=== PATIENT | male | born 1955 | race American Indian/Alaskan Native ===

== ENCOUNTER 2016-12-01 09:43 | Inpatient (IN) | payer BC ==
[2016-12-01 10:36] LABS: Hematocrit 44.3 % (35.5-45.6); Hemoglobin 14.4 gm/dl (11.8-15.2); Mean Corpuscular HGB Conc 32 % (32-34); Mean Corpuscular Hemoglobin 29 pg (28-32); Mean Corpuscular Volume 88 fl (84-94); Platelet Count 143 K/mm3 (140-440); Red Blood Count 5.04 M/mm3 (3.65-5.03)
[2016-12-01 10:39] LABS: White Blood Count 20.4 K/mm3 (4.5-11.0)
[2016-12-01 10:43] LABS: Anion Gap 19 mmol/L; BUN/Creatinine Ratio 13.52; Blood Urea Nitrogen 23 mg/dL (9-20); Calcium 8.8 mg/dL (8.4-10.2); Carbon Dioxide 25 mmol/L (22-30); Chloride 94.3 mmol/L (98-107); Glucose 227 mg/dL (75-100); Potassium 3.7 mmol/L (3.6-5.0); Sodium 135 mmol/L (137-145)
--- NOTE | 2016-12-01 10:59 | XRay Report ---
CHEST 2 VIEWS INDICATION: Shortness of breath. COMPARISON: Report of 08/22/2014 CXR; images not retrievable at this time. FINDINGS: PA and lateral chest radiographs suggest new 6 cm right upper lobe/suprahilar pneumonia. Normal cardiomediastinal silhouette. Mild aortic knob calcifications. Left lateral costophrenic angle blunting/pleural thickening appears stable by description as also bilateral upper lobe/apical scarring, left more than right. Approximately 5 mm presumed left upper lobe calcified granuloma on the frontal view. No large pleural effusions or CHF. Thoracic spondylosis. CONCLUSION: 1. Approximately 6 cm right upper lobe pneumonia appears new by description since July 2014, as described. Please also correlate clinically and followup to complete resolution following adequate conservative treatment. 2. Few other stable findings by description, as described. Thank you for the opportunity to participate in this patient's care.
[2016-12-01 12:00] LABS: Basophils % (Manual) 0 % (0.0-1.8); Blastocytes % (Manual) 0 %; Diff Status Complete; Eosinophils % (Manual) 0 % (0.0-4.3); RBC Morphology Normal
[2016-12-01] MEDS ORDERED: NACL 0.9% 1000 ML 2,000 ML IV ONE (12:50)
[2016-12-01] MEDS ORDERED: LEVAQUIN 750MG/150ML 750 MG/150 ML BAG IV ONE (12:50)
[2016-12-01] MEDS ORDERED: DUONEB 0.5 MG-3 MG/3 ML SOLN IH ONE (12:51)
[2016-12-01] MEDS ORDERED: BABY ASPIRIN PO ONE (12:53)
--- NOTE | 2016-12-01 12:53 | Emergency Department Report ---
HPI - General Chief Complaint: Dyspnea/Respdistress Time Seen by Provider: 12/01/16 12:27 - HPI HPI: The patient is a 61-year-old male who presents for evaluation of cough and dyspnea. The patient reports 3 days of constant and severe dyspnea, exacerbated with exertion, improved with rest, associated with a harsh productive cough of yellow and green sputum. He also reports associated diffuse generalized myalgias, chills, and ill-feeling. The patient denies trauma to the chest, chest pain, syncope, hemoptysis, unilateral leg swelling, recent immobilization, history of DVT or PE, recent cancer, history of familial coagulation disorder. ED Past Medical Hx - Past Medical History Previous Medical History?: Yes Hx Hypertension: Yes Hx GERD: Yes Hx Asthma: Yes Additional medical history: "scar on lungs" - Surgical History Past Surgical History?: No - Social History Smoking Status: Never Smoker Substance Use Type: None - Medications Home Medications: Home Medications Medication Instructions Recorded Confirmed Last Taken Type No Known Home Medications [No 12/01/16 12/01/16 Unknown History Reported Home Medications] ED Review of Systems ROS: Stated complaint: GRAY Other details as noted in HPI Constitutional: denies: fever ENT: denies: throat or neck pain Respiratory: reports cough, shortness of breath Cardiovascular: denies: chest pain Endocrine: denies unexplained weight loss or gain Gastrointestinal: denies: abdominal pain, nausea Genitourinary: denies: dysuria Musculoskeletal: denies: leg swelling Skin: denies: rash Neurological: denies: headache Hematological/Lymphatic: denies: easy bleeding or easy bruising Psych: denies sadness or hopelessness Physical Exam - Physical Exam Vital Signs: Vital Signs 12/01/16 10:01 Temperature 100.1 F H Pulse Rate 137 H Respiratory 32 H Rate Blood Pressure 142/90 O2 Sat by Pulse 92 Oximetry Physical Exam: General: well-nourished, well-developed, no acute distress Head: Normocephalic, atraumatic Eyes: normal sclera ENT: Mucous membranes are pale and dry Neck: No neck stiffness, no cervical adenopathy Respiratory: Breath sounds equal bilaterally, diminished breath sounds in right upper and middle lobe rhonchi present, mild costal retractions, no respiratory distress Cardio: S1 and S2 present, no murmurs, rubs, gallops, capillary refill is delayed Abdomen: Normoactive bowel sounds, soft abdomen, no rigidity, no guarding or rebound tenderness Chest WALL/Back: No tenderness to palpation of the chest wall, no CVA tenderness with percussion Musc: No pitting edema Skin: No rash Neuro: no facial drooping, normal speech Psych: Normal affect ED Course Vital Signs 12/01/16 10:01 Temperature 100.1 F H Pulse Rate 137 H Respiratory 32 H Rate Blood Pressure 142/90 O2 Sat by Pulse 92 Oximetry ED Medical Decision Making - Lab Data Result diagrams: 12/01/16 10:10 12/01/16 10:10 - Medical Decision Making The patient was seen and examined by myself. The patient is placed on a hall monitor and continuous pulse ox. On initial evaluation, the patient was found to be in no distress. The patient is given 2 L normal saline fluid bolus for treatment of dehydration. Evaluation orders were placed. Lab results reveal leukocytosis, WBC 20, elevated creatinine 1.7, elevated glucose of 227. X-ray of the chest reveals a right upper lobe pneumonia, 6 cm in size. IV Levaquin is ordered for treatment of pneumonia. Patient is given IV insulin for treatment of hyperglycemia. The on-call hospitalist service was contacted. They agreed to admit the patient for further treatment and close monitoring. The ED admit order was placed. The patient was admitted in guarded condition. Critical care attestation.: If time is entered above; I have spent that time in minutes in the direct care of this critically ill patient, excluding procedure time. ED Disposition Clinical Impression: Acute hyperglycemia, Dehydration Pneumonia Qualifiers: Pneumonia type: due to unspecified organism Laterality: right Lung location: upper lobe of lung Qualified Code(s): J18.1 - Lobar pneumonia, unspecified organism Sepsis Qualifiers: Sepsis type: sepsis due to unspecified organism Qualified Code(s): A41.9 - Sepsis, unspecified organism Disposition: OP ADMIT IP TO THIS HOSP Is pt being admited?: Yes Does the pt Need Aspirin: Yes Condition: Stable Time of Disposition: 12:45
[2016-12-01] MEDS ORDERED: ZOSYN IV SCH (13:00)
[2016-12-01] MEDS ORDERED: NS IV SCH (13:00)
--- NOTE | 2016-12-01 13:04 | Admit Criteria Form ---
Admission Criteria Documentation: SEVERE SEPSIS Clinical Indications for Admission to Inpatient Care (Place 'X' for any and all applicable criteria): Hospital admission is needed for appropriate care of the patient because of ANY ONE of the following: [X]I. Hemodynamic instability indicated by ANY ONE of the following(1)(2)(3)( 4)(5): []a. Vital sign abnormality not readily corrected by appropriate treatment within 12 to 24 hours indicated by ANY ONE of the following: []i) Tachycardia that persists despite appropriate treatment []ii) Hypotension that persists despite appropriate treatment []iii) Orthostatic vital sign changes that persist despite appropriate treatment [X]b. Vital sign abnormality that is severe indicated by ANY ONE of the following: [X]i. Inadequate perfusion indicated by ANY ONE of the following: [X]1) Lactic acidosis (greater than 2 mmol/L) []2) New abnormal capillary refill (greater than 3 seconds) []3) Reduced urine output []4) New altered mental status []5) Myocardial Ischemia []ii. Mean arterial pressure [A] less than 60 mm Hg []iii. Mean arterial pressure[A] less than 70 mm Hg after 30 minutes of appropriate treatment (eg, fluid resuscitation) []iv. Sustained heart rate greater than 120 beats per minute in adult []v. IV inotropic or vasopressor medication required to maintain adequate blood pressure or perfusion []II. Systemic or infectious condition causing severe symptoms or findings not responsive to emergency or observation care treatment (as appropriate) indicated by ANY ONE of the following: []a. Cardiac arrhythmias of immediate concern(1)(2)(3) []b. Severe endocrine disorder (eg, thyrotoxicosis, adrenal insufficiency)(4)(5) []c. Seizures (eg, new or recurrent)(6) []d. New-onset end organ failure or dysfunction as indicated by ANY ONE of the following: []i. Acute unexplained hypoxemia (eg, not from lung infection or chronic disease)(7)(8)(9) []ii. Acute renal failure as indicated by new onset of ANY ONE of the following(10)(11)(12)(13)(14): []1) 3-fold rise in serum creatinine from baseline []2) Serum creatinine greater than 4 mg/dL (354 micromoles/L) with acute rise greater than 0.5 mg/dL (44.2 micromoles/L) []3) Reduction of more than 75% in estimated glomerular filtration rate from baseline. []4) Estimated glomerular filtration rate less than 35 mL/min/1.73m2 ( 0.59 mL/sec/1.73m2) in child younger than 18 years. []5) Cessation of urine output indicated by ALL of the following: []A. Adequate volume status []B. Inadequate urine output as indicated by ANY ONE of the following: []a. Urine output less than 0.3 mL/kg/hr for 24 hours []b. Anuria (urine output less than 0.1 mL/kg/hr) for 12 hours []iii. Acute mental status changes(15) []iv. Acute hepatic failure (eg, plasma bilirubin greater than 4 mg/ dL (68 micromoles/L), new INR greater than 2.0)(16)(17) []e. Unmanageable nausea and vomiting(18) []f. New-onset or uncontrolled central diabetes insipidus(19)(20) []g. Clinically significant dehydration(18)(21) []h. Hypoglycemia(22) []i. Acidosis (pH less than 7.35) or alkalosis (pH greater than 7.45)( 22)(23) []j. Toxic drug level that indicates need for specific monitoring or treatment(24)(25) []k. Severe electrolyte abnormalities indicated by ALL of the following( 1)(2)(3): []i. Electrolytes and associated findings are not as expected for patient baseline or acceptable treatment effects. []ii. Severe abnormalities indicated by ANY ONE of the following: []1) Sodium less than 130 mEq/L (mmol/L) (new) []2) Sodium less than 135 mEq/L (mmol/L) with ANY ONE of the following: []A. Uncorrectable (to near normal or chronic baseline) after trial of outpatient and emergency treatment []B. Altered mental status []C. Seizures []D. Severe medical etiology requiring inpatient management (eg , heart failure, hypovolemia) []3) Sodium greater than 155 mEq/L (mmol/L) []4) Sodium greater than 150 mEq/L (mmol/L) with ANY ONE of the following: []A. Uncorrectable (to near normal or chronic baseline) with outpatient and emergency treatment []B. Altered mental status []C. Seizures []D. Severe medical etiology (eg, hypovolemia, diabetes insipidus) []5) Potassium less than 2.5 mEq/L (mmol/L) despite outpatient and emergency treatment []6) Potassium less than 3 mEq/L (mmol/L) with ANY ONE of the following : []A. Weakness []B. Cardiac abnormality (eg, arrhythmia, conduction disturbance ) []C. Cardiac ischemia []D. Ileus []E. Ongoing medical cause requiring inpatient management (eg, acute renal wasting or SIADH) []F. Other severe symptoms []7) Potassium greater than 6.5 mEq/L (mmol/L) []8) Potassium greater than 5 mEq/L (mmol/L) with ANY ONE of the following: []A. Uncorrectable (to near normal or chronic baseline) with outpatient and emergency treatment []B. Severe ECG findings[A] []C. Acute worsening of renal failure (creatinine greater than 2.5 mg/dL (221 micromoles/L) or significant elevation for age and size) []D. Severe weakness []E. Severe medical etiology (eg, hemolysis, infection, drug overdose) []9) Calcium less than 7 mg/dL (1.75 mmol/L) despite outpatient and emergency treatment(5) []10) Calcium less than 8 mg/dL (2 mmol/L) with significant symptoms or findings (eg, altered mental status, muscle spasms, seizures, breathing difficulty, cardiac abnormality (eg, arrhythmia or conduction disturbance))(5) []11) Calcium greater than 14 mg/dL (3.5 mmol/L)(5) []12) Calcium greater than 12 mg/dL (3 mmol/L) with ANY ONE of the following(5): []A. Uncorrectable (to near normal or chronic baseline) with outpatient and emergency treatment []B. Significant dehydration or hypovolemia as indicated by ALL of the following(3)(6)(7): []a. Not resolved with initial treatments []b. Clinically significant dehydration as indicated by ANY ONE of the following: [](1) Vomiting refractory to outpatient treatment (ie, precluding oral rehydration) [](2) Inability to drink [](3) Hypernatremia or other electrolyte abnormality unable to be corrected with outpatient and emergency treatment [](4) Failure to remain hydrated with outpatient therapy [](5) Reduced urine output [](6) Hypotension [](7) Serious cause for dehydration requiring acute hospitalization ( eg, bowel obstruction, increased intracranial pressure, infectious cause) [](8) Child with ANY ONE of the following(8): [](i) Severe abdominal tenderness [](ii) Adequate care not available at home [](iii) Severe dehydration (greater than 9% loss of body weight) []C. Significant symptoms or findings (eg, altered mental status , cardiac abnormality (eg, arrhythmia, conduction disturbance), malignant etiology requiring inpatient treatment) []13) Phosphorus less than 1 mg/dL (0.32 mmol/L) []14) Phosphorus less than 1.5 mg/dL (0.48 mmol/L) with ANY ONE of the following: []A. Patient unresponsive to outpatient and emergency treatment []B. Significant symptoms or findings (eg, weakness, altered mental status, breathing difficulty, seizures, rhabdomyolysis) []15) Phosphorus greater than 10 mg/dL (3.2 mmol/L) []16) Phosphorus greater than 4.5 mg/dL (1.45 mmol/L) (new) with ANY ONE of the following: []A. Severe medical etiology (eg, crush injury, acute renal failure) []B. Associated hypocalcemia with significant findings (eg, neurologic symptoms, altered mental status, muscle spasms, seizures, breathing difficulty, cardiac abnormality (eg, arrhythmia, conduction disturbance)) []16) Magnesium less than 1 mg/dL (0.41 mmol/L) []17) Magnesium less than 1.5 mg/dL (0.62 mmol/L) with ANY ONE of the following: []A. Patient unresponsive to outpatient and emergency treatment []B. Associated hypocalcemia with significant findings (eg, altered mental status, muscle spasms, seizures, breathing difficulty, cardiac abnormality (eg, arrhythmia, conduction disturbance)) []C. Associated hypokalemia (potassium less than 3 mEq/L (mmol/L )) with risk of arrhythmia []18) Magnesium greater than 4 mEq/L (2 mmol/L) []19) Magnesium greater than 2.5 mEq/L (1.25 mmol/L) with significant symptoms or findings (eg, weakness, altered mental status, cardiac abnormality (eg, arrhythmia, conduction disturbance), breathing difficulty, severe medical etiology (eg, renal failure, hypovolemia)) []20) Uric acid greater than 20 mg/dL (1190 micromoles/L)(9) []21) Uric acid greater than 8 mg/dL (476 micromoles/L) with significant symptoms or findings of tumor lysis syndrome (eg, creatinine greater than 1.5 times upper limit of normal, cardiac abnormality (eg , arrhythmia, conduction disturbance), seizure)(9) []III. High fever or other high-risk infection situation as indicated by ANY ONE of the following(26)(27)(28): []a. Outpatient and observation care antimicrobial treatment unavailable, not effective, or not appropriate []b. Documented bacteremia []c. Temperature greater than 104.9 degrees F (40.5 degrees C) (oral) []d. Temperature greater than 103.1 degrees F (39.5 degrees C) (oral) or less than 96.8 degrees F (36 degrees C) (rectal) that does not respond to emergency treatment and observation care []IV. High-risk febrile neutropenia[A] as indicated by ANY ONE of the following(29)(30)(31)(32): []a. Profound neutropenia[B] anticipated to extend for more than 7 days []b. Hemodynamic instability []c. Hypoxemia []d. Tachypnea []e. Altered mental status []f. New-onset abdominal pain []g. New-onset vomiting or diarrhea []h. Oral or gastrointestinal mucositis that interferes with swallowing or causes severe diarrhea []i. Focal infection (eg, cellulitis, pneumonia, central line or catheter infection, perirectal abscess) []j. Renal insufficiency (eg, GFR of less than 30 mL/min/1.73m2 (0.5 mL/sec /1.73m2)). []k. Severe liver dysfunction (transaminase levels greater than 5 times normal) []l. Platelet count less than 50,000/mm3 (50 x109/L)(33) []m. Leukemia or lymphoma induction therapy []n. Leukemia not in complete remission or with evidence of disease progression []o. Bone marrow transplant patient []p. Alemtuzumab being used for therapy []q. [employer] Association for Supportive Care in Cancer (MASCC) Risk Index score of less than 21[C](33)(35). []V. Isolation required (eg, tuberculosis that requires isolation, Ebola infection)[D](36)(37)(38)(39)(40) []. Gangrene that requires treatment beyond emergency or observation level care(41)(42) []VII. Antitoxin administration and ongoing observation required (eg, tetanus, botulism)(43)(44) []. Suspected infection with rapid progression or severe symptoms as indicated by ANY ONE of the following(45): []a. Streptococcal or staphylococcal toxic shock(46) []b. Diphtheria(47) []c. Hantavirus(48) []d. Severe acute respiratory syndrome(8)(49) []e. Anthrax(50) []f. Ebola[D](36)(37)(38) []g. Necrotizing soft tissue infection(41)(42) []h. Plague(50) []i. Other suspected infection that requires care beyond emergency or observation level care []VII. Severe adverse drug or systemic toxin reaction as indicated by ANY ONE of the following(24): []a. Serotonin syndrome(51)(52) []b. Neuroleptic malignant syndrome(51)(52) []c. Cholinergic syndrome with severe symptoms (eg, bronchorrhea, weakness , mental status changes, seizures)(53) []d. Anticholinergic syndrome []e. Sympathetic syndrome with severe symptoms (eg, seizures, mental status changes, cardiac dysrhythmias) []f. Other severe adverse drug or systemic toxin reaction that remains after emergency or observation level care (as appropriate) []VIII. Allergic reaction with severe symptoms (not responsive to emergency or observation care treatment as appropriate), including ANY ONE of the following(54): []a. Airway edema (pharyngeal, epiglottic, or laryngeal edema) []b. Stridor []c. Respiratory failure []d. Bronchospasm []e. Hypotension []IX. Environmental emergency (not responsive to emergency or observation care treatment as appropriate) as indicated by ANY ONE of the following(55)(56): []a. Hyperthermia []b. Heat stroke []c. Heat exhaustion []d. Hypothermia (temperature less than 95 degrees F (35 degrees C) rectal) (57) []e. Electrocution(58) []X. Complications of transplanted organ (ie, not covered elsewhere)[E] indicated by ANY ONE of the following(59): []a. Acute graft rejection (or graft vs. host disease)[F] requiring inpatient management (eg, intravenous immunosuppression)(60)(61)(62)( 63) []b. Acute failure of transplanted organ necessitating inpatient care (eg, cannot be managed in other setting) []c. Infection requiring inpatient management (eg, Hemodynamic instability, need for intravenous antimicrobial treatment)(64)(65) []d. Other complication of transplanted organ requiring inpatient management []XI. Systemic or Infectious Condition condition, symptom, or finding for which emergency and observation care have failed or are not considered appropriate. See General Criteria: Observation Care, General Admission Criteria or Pediatric General Admission Criteria guideline as appropriate. (Contents from SEVERE SEPSIS and SYSTEMIC OR INFECTIOUS CONDITION clinical indications for admission to inpatient care have been integrated in this form) The original [facility] content created by [facility] has been revised. The portions of the content which have been revised are identified through the use of italic text or in bold and [facility] has neither reviewed nor approved the modified material. All other unmodified content is copyright [facility]. Please see references footnoted in the original [facility] edition 2016 Admission Criteria Met: Yes
[2016-12-01 13:16] LABS: INR 1.39 (0.87-1.13)
--- NOTE | 2016-12-01 13:23 | History and Physical Report ---
History of Present Illness Chief complaint: Im not breathing right History of present illness: 61 YO Male with HTN, Asthma, GERD presents to ED for evaluation. Pt states that he has experienced difficulty breathing, and productive cough with greenish- yellow sputum over the past 3 days with worsening symptoms over the past 8 hours. Pt acknowledges subjective fever, but denies orthopnea, NVD, Syncope, CP , Palpitations, recent ill contacts, skin rashes, trauma, BRBPR, Hemoptysis, unintentional weight loss, or night sweats. Past History Past Medical History: GERD, hypertension Past Surgical History: No surgical history, Other (reviewed) Social history: single. denies: smoking, alcohol abuse, prescription drug abuse Family history: diabetes, hypertension Medications and Allergies Allergies Allergy/AdvReac Type Severity Reaction Status Date / Time No Known Allergies Allergy Verified 03/07/13 08:14 Home Medications Medication Instructions Recorded Confirmed Last Taken Type No Known Home Medications [No 12/01/16 12/01/16 Unknown History Reported Home Medications] Active Meds: Active Medications Levofloxacin/Dextrose (Levaquin 750mg/150ml) 750 mg in 150 mls @ 100 mls/hr IV ONCE ONE Stop: 12/01/16 14:19 Sodium Chloride (Nacl 0.9% 1000 Ml) 2,000 mls @ 999 mls/hr IV BOLUS ONE Stop: 12/01/16 14:50 Piperacillin Sod/Tazobactam Sod (Zosyn/Ns 3.375gm/50ml) 3.375 gm in 50 mls @ 100 mls/hr IV Q6HR RADHA Review of Systems All systems: negative Respiratory: cough, shortness of breath Exam - Constitutional Vitals: Temp Pulse Resp BP Pulse Ox 100.1 F H 137 H 32 H 142/90 92 12/01/16 10:01 12/01/16 10:01 12/01/16 10:01 12/01/16 10:01 12/01/16 10:01 General appearance: Present: mild distress - EENT Eyes: Present: PERRL ENT: hearing intact, clear oral mucosa - Neck Neck: Present: supple, normal ROM - Respiratory Respiratory: bilateral: diminished, rhonchi - Cardiovascular Rhythm: regular Heart Sounds: Present: S1 & S2 - Extremities Extremities: pulses symmetrical, No edema Peripheral Pulses: within normal limits - Abdominal General gastrointestinal: Present: soft, non-tender, non-distended, normal bowel sounds Male genitourinary: Present: normal - Integumentary Integumentary: Present: clear, warm, dry - Psychiatric Psychiatric: appropriate mood/affect, intact judgment & insight - Neurologic Neurologic: CNII-XII intact, moves all extremities Results - Labs CBC & Chem 7: 12/01/16 10:10 12/01/16 10:10 Labs: Abnormal lab results 12/01/16 12/01/16 12/01/16 Range/Units 10:10 10:10 12:50 WBC 20.4 H (4.5-11.0) K/mm3 RBC 5.04 H (3.65-5.03) M/mm3 Seg Neuts % (Manual) 75.0 H (40.0-70.0) % Lymphocytes % (Manual) 6.0 L (13.4-35.0) % Seg Neutrophils # Man 15.3 H (1.8-7.7) K/mm3 PT 17.0 H (12.2-14.9) Sec. INR 1.39 H (0.87-1.13) Sodium 135 L (137-145) mmol/L Chloride 94.3 L (98-107) mmol/L BUN 23 H (9-20) mg/dL Creatinine 1.7 H (0.8-1.5) mg/dL Glucose 227 H (75-100) mg/dL Assessment and Plan - Patient Problems (1) Sepsis Current Visit: Yes Status: Acute Qualifiers: Sepsis type: S Plan to address problem: Sepsis protocol: IV abx, serial lactate level, blood cultures, monitor uop q shift, (2) Pneumonia Current Visit: Yes Status: Acute Qualifiers: Pneumonia type: aspiration pneumonia Aspiration pneumonia type: A Laterality: right Lung location: upper lobe of lung Plan to address problem: Pneumonia Protocol: Iv abx, nebs, aspiration precautions, blood culture, supportive care, incentive spirometry (3) ARF (acute renal failure) Current Visit: Yes Status: Acute Qualifiers: Acute renal failure type: A Plan to address problem: IVF replacement, monitor uop q shift, repeat bmp in am. (4) Accelerated hypertension Current Visit: Yes Status: Acute Plan to address problem: monitor bp q shift, continue current care. (5) Asthma Current Visit: Yes Status: Acute Qualifiers: Asthma severity: mild intermittent Asthma complication type: A Plan to address problem: Stable, continue current care, treat pneumonia (6) GERD (gastroesophageal reflux disease) Current Visit: Yes Status: Acute Qualifiers: Esophagitis presence: E Plan to address problem: PPI therapy, (7) DVT prophylaxis Current Visit: Yes Status: Acute
[2016-12-01] MEDS ORDERED: DUONEB 0.5 MG-3 MG/3 ML SOLN IH PRN (13:24)
[2016-12-01] MEDS ORDERED: VANCOMYCIN VIAL 1,250 MG in NACL 0.9% 500 ML 500 ML IV ONE (13:24)
[2016-12-01] MEDS ORDERED: PROVENTIL IH PRN (13:30)
[2016-12-01] MEDS ORDERED: VANCOMYCIN PHARMACY TO DOSE IV SCH (14:00)
[2016-12-01] MEDS ORDERED: NACL 0.9% 1000 ML IV ONE (14:00)
[2016-12-01] MEDS ORDERED: VANCOMYCIN/NS 1 GM/250 ML 1 GM/250 ML BAG IV SCH (14:00)
[2016-12-01] MEDS ORDERED: NACL 0.9% 1000 ML 1,000 ML IV ONE (14:00)
[2016-12-01] MEDS ORDERED: BABY ASPIRIN ONE (16:24)
[2016-12-01] MEDS: ZOSYN/NS 4.5GM/100ML 4.5 GM/100 ML VIAL IV SCH ×2 (17:56→21:45)
[2016-12-01] MEDS ORDERED: ZOSYN/NS 3.375GM/50ML 3.375 GM/50 ML BAG IV SCH (18:00)
[2016-12-01] MEDS ORDERED: MORPHINE ONE (19:01)
[2016-12-01] MEDS ORDERED: MORPHINE IV ONE (19:03)
[2016-12-02] MEDS: ZOSYN/NS 4.5GM/100ML 4.5 GM/100 ML VIAL IV SCH ×3 (05:05→17:57)
[2016-12-02 09:23] LABS: Hematocrit 38.8 % (35.5-45.6); Hemoglobin 12.5 gm/dl (11.8-15.2); Mean Corpuscular HGB Conc 32 % (32-34); Mean Corpuscular Hemoglobin 28 pg (28-32); Mean Corpuscular Volume 88 fl (84-94); Platelet Count 118 K/mm3 (140-440); Red Blood Count 4.41 M/mm3 (3.65-5.03)
[2016-12-02 09:25] LABS: White Blood Count 22.4 K/mm3 (4.5-11.0)
[2016-12-02] MEDS ORDERED: ZOSYN/NS 4.5GM/100ML 4.5 GM/100 ML VIAL IV SCH (09:30)
--- NOTE | 2016-12-02 09:39 | Progress Note ---
Assessment and Plan Assessment and plan: Patient is 61-year-old man history of hypertension, asthma and GERD who presents with shortness of breath and productive cough. Chest x-ray shows right upper lobe pneumonia, white blood cell count was 20.5. Blood glucose was 227, creatinine 1.7. Patient is febrile so I ordered Tylenol. -Aspiration pneumonia right upper lobe: Treat with antibiotics, follow blood culture, added renal dose zosyn -Sepsis due to pneumonia present on admission: Treat with antibiotics, IV fluids -Acute renal failure, vasomotor nephropathy: Treat with IV fluids -Hyperglycemia, new onset diabetes mellitus suspected: Check A1c, start diabetic diet and ordered sliding scale insulin -DVT prophylaxis: SCDs and subcutaneous heparin Full code History Interval history: Patient seen and examined. Follow up on shortness breath and right-sided chest pain which still present. He is on 2 L oxygen. Which is new. Hyperglycemia is new. Patient denies history of diabetes mellitus. Imaging, old records, testing, labs, nursing notes reviewed. Hospitalist Physical - Physical exam Narrative exam: GEN: WDWN, NAD, AWAKE, ALERT, ORIENTATED x 3 HEENT: NCAT, PERRL, EOMI, OP CLEAR NECK: SUPPLE, NO THYROMEGALY, NO JVD, NO LAD CVS: RRR, NORMAL S1S2 LUNGS/CHEST: Coarse breath sounds were right upper lung, NORMAL CHEST EXPANSION B, GOOD AIR ENTRY B ABD: SOFT, diffuse tenderness, distended, GBS, NO REBOUND OR GUARDING EXT/SKIN: NO SIGNIFICANT EDEMA OR RASH MSK: FROM X 4 EXTREMITIES NEURO: CN 2-12 GROSSLY INTACT, NO FOCAL DEFICITS PSY: CALM - Constitutional Vitals: Temp Pulse Resp BP Pulse Ox 100.5 F H 118 H 24 141/88 96 12/02/16 07:55 12/02/16 07:55 12/02/16 07:55 12/02/16 07:55 12/02/16 07:55 General appearance: Absent: mild distress Results - Labs CBC & Chem 7: 12/02/16 08:13 12/01/16 10:10 Labs: Laboratory Last Values WBC 22.4 K/mm3 (4.5-11.0) H 12/02/16 08:13 RBC 4.41 M/mm3 (3.65-5.03) 12/02/16 08:13 Hgb 12.5 gm/dl (11.8-15.2) 12/02/16 08:13 Hct 38.8 % (35.5-45.6) 12/02/16 08:13 MCV 88 fl (84-94) 12/02/16 08:13 MCH 28 pg (28-32) 12/02/16 08:13 MCHC 32 % (32-34) 12/02/16 08:13 RDW 15.0 % (13.2-15.2) 12/02/16 08:13 Plt Count 118 K/mm3 (140-440) L 12/02/16 08:13 Add Manual Diff Complete 12/01/16 10:10 Total Counted 100 12/01/16 10:10 Seg Neutrophils % Photo Stylist 12/01/16 10:10 Seg Neuts % (Manual) 75.0 % (40.0-70.0) H 12/01/16 10:10 Band Neutrophils % 17.0 % 12/01/16 10:10 Lymphocytes % (Manual) 6.0 % (13.4-35.0) L 12/01/16 10:10 Reactive Lymphs % (Man) 0 % 12/01/16 10:10 Monocytes % (Manual) 2.0 % (0.0-7.3) 12/01/16 10:10 Eosinophils % (Manual) 0 % (0.0-4.3) 12/01/16 10:10 Basophils % (Manual) 0 % (0.0-1.8) 12/01/16 10:10 Metamyelocytes % 0 % 12/01/16 10:10 Myelocytes % 0 % 12/01/16 10:10 Promyelocytes % 0 % 12/01/16 10:10 Blast Cells % 0 % 12/01/16 10:10 Nucleated RBC % Not Reportable 12/01/16 10:10 Seg Neutrophils # Man 15.3 K/mm3 (1.8-7.7) H 12/01/16 10:10 Band Neutrophils # 3.5 K/mm3 12/01/16 10:10 Lymphocytes # (Manual) 1.2 K/mm3 (1.2-5.4) 12/01/16 10:10 Abs React Lymphs (Man) 0.0 K/mm3 12/01/16 10:10 Monocytes # (Manual) 0.4 K/mm3 (0.0-0.8) 12/01/16 10:10 Eosinophils # (Manual) 0.0 K/mm3 (0.0-0.4) 12/01/16 10:10 Basophils # (Manual) 0.0 K/mm3 (0.0-0.1) 12/01/16 10:10 Metamyelocytes # 0.0 K/mm3 12/01/16 10:10 Myelocytes # 0.0 K/mm3 12/01/16 10:10 Promyelocytes # 0.0 K/mm3 12/01/16 10:10 Blast Cells # 0.0 K/mm3 12/01/16 10:10 WBC Morphology Not Reportable 12/01/16 10:10 Hypersegmented Neuts Not Reportable 12/01/16 10:10 Hyposegmented Neuts Not Reportable 12/01/16 10:10 Hypogranular Neuts Not Reportable 12/01/16 10:10 Smudge Cells Not Reportable 12/01/16 10:10 Toxic Granulation Not Reportable 12/01/16 10:10 Toxic Vacuolation Not Reportable 12/01/16 10:10 Dohle Bodies Not Reportable 12/01/16 10:10 Pelger-Huet Anomaly Not Reportable 12/01/16 10:10 Darius Rods Not Reportable 12/01/16 10:10 Platelet Estimate Not Reportable 12/01/16 10:10 Clumped Platelets Not Reportable 12/01/16 10:10 Plt Clumps, EDTA Not Reportable 12/01/16 10:10 Large Platelets Not Reportable 12/01/16 10:10 Giant Platelets Not Reportable 12/01/16 10:10 Platelet Satelliting Not Reportable 12/01/16 10:10 Plt Morphology Comment Not Reportable 12/01/16 10:10 RBC Morphology Normal 12/01/16 10:10 Dimorphic RBCs Not Reportable 12/01/16 10:10 Polychromasia Not Reportable 12/01/16 10:10 Hypochromasia Not Reportable 12/01/16 10:10 Poikilocytosis Not Reportable 12/01/16 10:10 Anisocytosis Not Reportable 12/01/16 10:10 Microcytosis Not Reportable 12/01/16 10:10 Macrocytosis Not Reportable 12/01/16 10:10 Spherocytes Not Reportable 12/01/16 10:10 Pappenheimer Bodies Not Reportable 12/01/16 10:10 Sickle Cells Not Reportable 12/01/16 10:10 Target Cells Not Reportable 12/01/16 10:10 Tear Drop Cells Not Reportable 12/01/16 10:10 Ovalocytes Not Reportable 12/01/16 10:10 Helmet Cells Not Reportable 12/01/16 10:10 Avendano-[place] Bodies Not Reportable 12/01/16 10:10 [place] Rings Not Reportable 12/01/16 10:10 [place] Cells Not Reportable 12/01/16 10:10 Bite Cells Not Reportable 12/01/16 10:10 Crenated Cell Not Reportable 12/01/16 10:10 Elliptocytes Not Reportable 12/01/16 10:10 Acanthocytes (Spur) Not Reportable 12/01/16 10:10 Rouleaux Not Reportable 12/01/16 10:10 Hemoglobin C Crystals Not Reportable 12/01/16 10:10 Schistocytes Not Reportable 12/01/16 10:10 Malaria parasites Not Reportable 12/01/16 10:10 Domenic Bodies Not Reportable 12/01/16 10:10 Hem Pathologist Commnt No 12/01/16 10:10 PT 17.0 Sec. (12.2-14.9) H 12/01/16 12:50 INR 1.39 (0.87-1.13) H 12/01/16 12:50 VBG pH 7.395 (7.320-7.420) 12/01/16 12:50 Sodium 135 mmol/L (137-145) L 12/01/16 10:10 Potassium 3.7 mmol/L (3.6-5.0) 12/01/16 10:10 Chloride 94.3 mmol/L (98-107) L 12/01/16 10:10 Carbon Dioxide 25 mmol/L (22-30) 12/01/16 10:10 Anion Gap 19 mmol/L 12/01/16 10:10 BUN 23 mg/dL (9-20) H 12/01/16 10:10 Creatinine 1.7 mg/dL (0.8-1.5) H 12/01/16 10:10 Estimated GFR 50 ml/min 12/01/16 10:10 BUN/Creatinine Ratio 13.52 % 12/01/16 10:10 Glucose 227 mg/dL (75-100) H 12/01/16 10:10 POC Glucose 187 (70-105) H 12/01/16 18:59 Lactic Acid 1.50 mmol/L (0.7-2.0) 12/01/16 16:06 Calcium 8.8 mg/dL (8.4-10.2) 12/01/16 10:10 Troponin T < 0.010 ng/mL (0.00-0.029) 12/01/16 10:10
[2016-12-02] MEDS ORDERED: NACL 0.9% 1000 ML 1,000 ML IV SCH (10:00)
[2016-12-02 10:25] LABS: Basophils % (Manual) 0 % (0.0-1.8); Blastocytes % (Manual) 0 %; Diff Status Complete; Eosinophils % (Manual) 0 % (0.0-4.3); Platelet Estimate Appears Decreased; RBC Morphology Normal
[2016-12-02] MEDS ORDERED: FLUARIX QUAD 2016-2017(36 MOS+) IM ONE (12:00)
[2016-12-02] MEDS ORDERED: LASIX IV ONE ×2 (12:37)
[2016-12-02] MEDS: ATROVENT IH SCH ×3 (12:40→20:34)
[2016-12-02] MEDS: XOPENEX IH SCH ×2 (12:40→16:10)
[2016-12-02] MEDS ORDERED: ZOSYN/NS 2.25 GM/50ML 2.25 GM/50 ML BAG IV SCH (14:00)
[2016-12-03] MEDS: ATROVENT IH SCH ×6 (00:02→19:55)
[2016-12-03] MEDS: XOPENEX IH SCH ×3 (00:03→16:10)
[2016-12-03] MEDS: ZOSYN/NS 4.5GM/100ML 4.5 GM/100 ML VIAL IV SCH ×3 (02:08→18:30)
[2016-12-03 06:01] LABS: Hematocrit 36.9 % (35.5-45.6); Hemoglobin 12.2 gm/dl (11.8-15.2); Mean Corpuscular HGB Conc 33 % (32-34); Mean Corpuscular Hemoglobin 29 pg (28-32); Mean Corpuscular Volume 88 fl (84-94); Platelet Count 134 K/mm3 (140-440); Red Blood Count 4.19 M/mm3 (3.65-5.03); Red Cell Distribution Width 15.2 % (13.2-15.2)
[2016-12-03 06:02] LABS: White Blood Count 23.9 K/mm3 (4.5-11.0)
[2016-12-03 06:13] LABS: BUN/Creatinine Ratio 17.5; Calcium 8.9 mg/dL (8.4-10.2); Chloride 100.9 mmol/L (98-107); Potassium 3.4 mmol/L (3.6-5.0)
[2016-12-03] MEDS ORDERED: K-DUR PO NR ×2 (09:00→13:00)
[2016-12-03] MEDS ORDERED: LEVAQUIN 750MG/150ML 750 MG/150 ML BAG IV SCH (10:00)
--- NOTE | 2016-12-03 10:23 | Cat Scan Report ---
CT CHEST WITHOUT CONTRAST: 12/01/16 13:24:00 CLINICAL: Pneumonia. TECHNIQUE: Volumetric acquisition and 1.25 mm axial scan reconstructions without contrast. FINDINGS: Right upper lobe airspace disease with partial consolidation and air bronchograms. Consolidation extends from the hilum to the pleura. Scattered benign calcifications in the right upper lobe and several calcified granuloma of the left upper lobe and left lower lobe. The largest is in the superior segment of the left lower lobe and measures 6.5 mm. Tubular bronchiectasis of the left upper lobe and left lower lobe along with volume loss. Extensive left upper lobe and left lower lobe scars and a spiculated left apical opacity measuring 1.4 x 1.3 cm which is likely a scar. A spiculated left lower lobe opacity measures 1 cm and is likely a scar. Moderate emphysema of the left lung. No endobronchial mass is identified. No pleural effusion. The heart is normal size. Pulmonary arteries are large. The aorta is normal. Several small mediastinal lymph nodes. The largest is pretracheal at the level of the aortic arch and measures 1 cm. No hilar lymph nodes are identified. Normal thyroid and trachea. Nonspecific wall thickening of the distal esophagus. The upper abdomen is unremarkable. The bones and soft tissues are normal. IMPRESSION: 1. COPD with greater involvement of the left lung than the right. 2. Right upper lobe pneumonia with consolidation and volume loss. 3. Bilateral upper lobe and left lower lobe benign calcifications. Although these appear to be granulomas, there are no calcified hilar or mediastinal lymph nodes and no hepatic or splenic calcifications as is typical with old granulomatous disease. 4. Probable benign spiculated scars of the left upper lobe and left lower lobe. Recommend followup with CT in six months.
[2016-12-03] MEDS: TYLENOL PO PRN (11:29)
[2016-12-03] MEDS ORDERED: ALUM-MAG HYDROX-SIMETH 200-200-20MG/5ML PO PRN (13:36)
--- NOTE | 2016-12-03 13:40 | Progress Note ---
Assessment and Plan Assessment and plan: Patient is 61-year-old man history of hypertension, asthma and GERD who presents with shortness of breath and productive cough. Chest x-ray shows right upper lobe pneumonia, white blood cell count was 20.5. Blood glucose was 227, creatinine 1.7. Patient is febrile so I ordered Tylenol. -Aspiration pneumonia right upper lobe: Treat with antibiotics, follow blood culture, added renal dose zosyn -Sepsis due to pneumonia present on admission: Treat with antibiotics, stopped IV fluids and gave a dose of lasix iv x 1 which really helped . -Acute renal failure, vasomotor nephropathy: Treat with IV fluids, was getting fluid overloaded, therefore stopped ivf -Hyperglycemia, Checked A1c==>5.8 unlikely DM, so hyperglycemia due to pre-dm vs stress reaction, start diabetic diet and ordered sliding scale insulin -DVT prophylaxis: SCDs and subcutaneous heparin Full code 12/03: wbc increasing and febrile, ordered CT chest chest without contrast due to renal dysfunction==>consulted pulmonology History Interval history: Patient seen and examined. Follow up on shortness breath and right-sided chest pain which still present. He is on 2 L oxygen. Which is new. Hyperglycemia is new. Patient denies history of diabetes mellitus. Imaging, old records, testing, labs, nursing notes reviewed. Hospitalist Physical - Physical exam Narrative exam: GEN: WDWN, NAD, AWAKE, ALERT, ORIENTATED x 3 HEENT: NCAT, PERRL, EOMI, OP CLEAR NECK: SUPPLE, NO THYROMEGALY, NO JVD, NO LAD CVS: RRR, NORMAL S1S2 LUNGS/CHEST: Coarse breath sounds were right upper lung, NORMAL CHEST EXPANSION B, GOOD AIR ENTRY B ABD: SOFT, diffuse tenderness, distended, GBS, NO REBOUND OR GUARDING EXT/SKIN: NO SIGNIFICANT EDEMA OR RASH MSK: FROM X 4 EXTREMITIES NEURO: CN 2-12 GROSSLY INTACT, NO FOCAL DEFICITS PSY: CALM - Constitutional Vitals: Temp Pulse Resp BP Pulse Ox 100.1 F H 118 H 20 131/81 99 12/03/16 07:00 12/03/16 12:35 12/03/16 12:35 12/03/16 07:00 12/03/16 07:32 General appearance: Absent: mild distress Results - Labs CBC & Chem 7: 12/03/16 05:31 12/03/16 05:31 Labs: Laboratory Last Values WBC 23.9 K/mm3 (4.5-11.0) H 12/03/16 05:31 RBC 4.19 M/mm3 (3.65-5.03) 12/03/16 05:31 Hgb 12.2 gm/dl (11.8-15.2) 12/03/16 05:31 Hct 36.9 % (35.5-45.6) 12/03/16 05:31 MCV 88 fl (84-94) 12/03/16 05:31 MCH 29 pg (28-32) 12/03/16 05:31 MCHC 33 % (32-34) 12/03/16 05:31 RDW 15.2 % (13.2-15.2) 12/03/16 05:31 Plt Count 134 K/mm3 (140-440) L 12/03/16 05:31 Add Manual Diff Complete 12/02/16 08:13 Total Counted 100 12/02/16 08:13 Seg Neutrophils % Trawl Net Maker 12/01/16 10:10 Seg Neuts % (Manual) 55.0 % (40.0-70.0) 12/02/16 08:13 Band Neutrophils % 35.0 % 12/02/16 08:13 Lymphocytes % (Manual) 5.0 % (13.4-35.0) L 12/02/16 08:13 Reactive Lymphs % (Man) 0 % 12/02/16 08:13 Monocytes % (Manual) 5.0 % (0.0-7.3) 12/02/16 08:13 Eosinophils % (Manual) 0 % (0.0-4.3) 12/02/16 08:13 Basophils % (Manual) 0 % (0.0-1.8) 12/02/16 08:13 Metamyelocytes % 0 % 12/02/16 08:13 Myelocytes % 0 % 12/02/16 08:13 Promyelocytes % 0 % 12/02/16 08:13 Blast Cells % 0 % 12/02/16 08:13 Nucleated RBC % Not Reportable 12/02/16 08:13 Seg Neutrophils # Man 12.3 K/mm3 (1.8-7.7) H 12/02/16 08:13 Band Neutrophils # 7.8 K/mm3 12/02/16 08:13 Lymphocytes # (Manual) 1.1 K/mm3 (1.2-5.4) L 12/02/16 08:13 Abs React Lymphs (Man) 0.0 K/mm3 12/02/16 08:13 Monocytes # (Manual) 1.1 K/mm3 (0.0-0.8) H 12/02/16 08:13 Eosinophils # (Manual) 0.0 K/mm3 (0.0-0.4) 12/02/16 08:13 Basophils # (Manual) 0.0 K/mm3 (0.0-0.1) 12/02/16 08:13 Metamyelocytes # 0.0 K/mm3 12/02/16 08:13 Myelocytes # 0.0 K/mm3 12/02/16 08:13 Promyelocytes # 0.0 K/mm3 12/02/16 08:13 Blast Cells # 0.0 K/mm3 12/02/16 08:13 WBC Morphology Not Reportable 12/02/16 08:13 Hypersegmented Neuts Not Reportable 12/02/16 08:13 Hyposegmented Neuts Not Reportable 12/02/16 08:13 Hypogranular Neuts Not Reportable 12/02/16 08:13 Smudge Cells Not Reportable 12/02/16 08:13 Toxic Granulation Not Reportable 12/02/16 08:13 Toxic Vacuolation Not Reportable 12/02/16 08:13 Dohle Bodies Not Reportable 12/02/16 08:13 Pelger-Huet Anomaly Not Reportable 12/02/16 08:13 Darius Rods Not Reportable 12/02/16 08:13 Platelet Estimate Appears decreased 12/02/16 08:13 Clumped Platelets Not Reportable 12/02/16 08:13 Plt Clumps, EDTA Not Reportable 12/02/16 08:13 Large Platelets Not Reportable 12/02/16 08:13 Giant Platelets Not Reportable 12/02/16 08:13 Platelet Satelliting Not Reportable 12/02/16 08:13 Plt Morphology Comment Not Reportable 12/02/16 08:13 RBC Morphology Normal 12/02/16 08:13 Dimorphic RBCs Not Reportable 12/02/16 08:13 Polychromasia Not Reportable 12/02/16 08:13 Hypochromasia Not Reportable 12/02/16 08:13 Poikilocytosis Not Reportable 12/02/16 08:13 Anisocytosis Not Reportable 12/02/16 08:13 Microcytosis Not Reportable 12/02/16 08:13 Macrocytosis Not Reportable 12/02/16 08:13 Spherocytes Not Reportable 12/02/16 08:13 Pappenheimer Bodies Not Reportable 12/02/16 08:13 Sickle Cells Not Reportable 12/02/16 08:13 Target Cells Not Reportable 12/02/16 08:13 Tear Drop Cells Not Reportable 12/02/16 08:13 Ovalocytes Not Reportable 12/02/16 08:13 Helmet Cells Not Reportable 12/02/16 08:13 Avendano-[place] Bodies Not Reportable 12/02/16 08:13 [place] Rings Not Reportable 12/02/16 08:13 [place] Cells Not Reportable 12/02/16 08:13 Bite Cells Not Reportable 12/02/16 08:13 Crenated Cell Not Reportable 12/02/16 08:13 Elliptocytes Not Reportable 12/02/16 08:13 Acanthocytes (Spur) Not Reportable 12/02/16 08:13 Rouleaux Not Reportable 12/02/16 08:13 Hemoglobin C Crystals Not Reportable 12/02/16 08:13 Schistocytes Not Reportable 12/02/16 08:13 Malaria parasites Not Reportable 12/02/16 08:13 Domenic Bodies Not Reportable 12/02/16 08:13 Hem Pathologist Commnt No 12/02/16 08:13 PT 17.0 Sec. (12.2-14.9) H 12/01/16 12:50 INR 1.39 (0.87-1.13) H 12/01/16 12:50 VBG pH 7.395 (7.320-7.420) 12/01/16 12:50 Sodium 141 mmol/L (137-145) 12/03/16 05:31 Potassium 3.4 mmol/L (3.6-5.0) L 12/03/16 05:31 Chloride 100.9 mmol/L (98-107) 12/03/16 05:31 Carbon Dioxide 25 mmol/L (22-30) 12/03/16 05:31 Anion Gap 19 mmol/L 12/03/16 05:31 BUN 28 mg/dL (9-20) H 12/03/16 05:31 Creatinine 1.6 mg/dL (0.8-1.5) H 12/03/16 05:31 Estimated GFR 53 ml/min 12/03/16 05:31 BUN/Creatinine Ratio 17.50 % 12/03/16 05:31 Glucose 118 mg/dL (75-100) H 12/03/16 05:31 POC Glucose 187 (70-105) H 12/01/16 18:59 Hemoglobin A1c 5.8 % (4-6) 12/02/16 08:13 Lactic Acid 1.50 mmol/L (0.7-2.0) 12/01/16 16:06 Calcium 8.9 mg/dL (8.4-10.2) 12/03/16 05:31 Troponin T < 0.010 ng/mL (0.00-0.029) 12/01/16 10:10
[2016-12-03] MEDS: PROTONIX PO SCH (15:33)
--- NOTE | 2016-12-03 16:42 | Consultation ---
History of Present Illness Consult date: 12/03/16 Requesting physician: ENA RAMOS Reason for consult: pneumonia, abnormal CXR/CT History of present illness: 61 y/o [place], admitted with cough productive of sputum, chest pain and shortness of breath. Found to have right upper lobe infiltrate. Started on broad spec abx therapy to cover anaerobes and gram negatives. Unfortunately, fever curve not breaking and still coughing with stable shortness of breath. WC increasing so pulmonary consulted. CT scan ordered which shows dense right upper lobe infiltrate and bronchiectasis isolated to the left lung. Per patient, no smoking no drinking. Has never been exposed to TB and per him has a negative skin test. Remainder is negative. Currently on room air. Past History Past Medical History: GERD, hypertension Past Surgical History: No surgical history, Other (reviewed) Social history: single. denies: smoking, alcohol abuse, prescription drug abuse Family history: diabetes, hypertension Medications and Allergies Allergies Allergy/AdvReac Type Severity Reaction Status Date / Time No Known Allergies Allergy Verified 03/07/13 08:14 Home Medications Medication Instructions Recorded Confirmed Last Taken Type No Known Home Medications [No 12/01/16 12/01/16 Unknown History Reported Home Medications] Active Meds: Active Medications Acetaminophen (Tylenol) 650 mg PO Q6H PRN PRN Reason: Non Cardiac Pain or Temp>100.5 Last Admin: 12/03/16 11:29 Dose: 650 mg Al Hydrox/Mg Hydrox/Simethicone (Alum-Mag Hydrox-Simeth [phone]/5ml) 30 ml PO Q4H PRN PRN Reason: Indigestion Last Admin: 12/03/16 15:33 Dose: 30 ml Levofloxacin/Dextrose (Levaquin 750mg/150ml) 750 mg in 150 mls @ 100 mls/hr IV Q48HR RADHA PRN Reason: Protocol Last Admin: 12/03/16 09:42 Dose: 100 mls/hr Piperacillin Sod/Tazobactam Sod (Zosyn/Ns 4.5gm/100ml) 4.5 gm in 100 mls @ 200 mls/hr IV Q8H RADHA PRN Reason: Protocol Last Admin: 12/03/16 12:51 Dose: 200 mls/hr Ipratropium [place] (Atrovent) 0.5 mg IH Q4HRT [facility] Last Admin: 12/03/16 16:10 Dose: 0.5 mg Levalbuterol HCl (Xopenex) 1.25 mg IH Q8HRT [facility] Last Admin: 12/03/16 16:10 Dose: 1.25 mg Pantoprazole Sodium (Protonix) 40 mg PO QDAY [facility] Last Admin: 12/03/16 15:33 Dose: 40 mg Review of Systems All systems: negative Physical Examination Vital signs: Vital Signs Temp Pulse Resp BP Pulse Ox 100.1 F H 137 H 32 H 142/90 92 12/01/16 10:01 12/01/16 10:01 12/01/16 10:01 12/01/16 10:01 12/01/16 10:01 General appearance: no acute distress, alert, appears uncomfortable Eyes: non-icteric ENT: oropharynx moist, other (dentition is not the best) Neck: supple Effort: mildly labored Ascultation: Right: wheezes (upper lobe) Percussion: Bilateral: not dull Tactile fremitus: Bilateral: normal Cardiovascular: regular rate and rhythm Gastrointestinal: normoactive bowel sounds Extremities: no cyanosis, no edema, pink and warm, pulses normal Results - Laboratory Findings CBC and BMP: 12/03/16 05:31 12/03/16 05:31 PT/INR, D-dimer PT 17.0 Sec. (12.2-14.9) H 12/01/16 12:50 INR 1.39 (0.87-1.13) H 12/01/16 12:50 Abnormal lab findings: Abnormal Labs 12/01/16 12/02/16 12/03/16 18:59 08:13 05:31 WBC 22.4 H 23.9 H Plt Count 118 L 134 L Lymphocytes % (Manual) 5.0 L Seg Neutrophils # Man 12.3 H Lymphocytes # (Manual) 1.1 L Monocytes # (Manual) 1.1 H Potassium BUN Creatinine Glucose POC Glucose 187 H 12/03/16 05:31 WBC Plt Count Lymphocytes % (Manual) Seg Neutrophils # Man Lymphocytes # (Manual) Monocytes # (Manual) Potassium 3.4 L BUN 28 H Creatinine 1.6 H Glucose 118 H POC Glucose - Diagnostic Findings CT scan - chest: image reviewed (As stated in HPI) Assessment and Plan 61 y/o male with right upper lobe pneumonia and bronchiectasis and some cystic lung disease mostly confined to the left lung 1. Check HIV 2. TB skin test 3. Stop levaquin and change to azithro if truly worried about atypicals 4. Continue zosyn 5. Patient needs bronchoscopy, will discuss this with him tomorrow and attempt to set up for Monday or Monday of next week Thank you for this consult, will follow along with you.
[2016-12-03] MEDS ORDERED: ZITHROMAX 500 MG in NACL 0.9% 250ML 250 ML IV SCH (18:00)
[2016-12-04] MEDS: XOPENEX IH SCH ×4 (00:52→22:31)
[2016-12-04] MEDS: ATROVENT IH SCH ×5 (00:52→22:31)
[2016-12-04] MEDS: ZOSYN/NS 4.5GM/100ML 4.5 GM/100 ML VIAL IV SCH ×3 (02:20→18:29)
[2016-12-04] MEDS ORDERED: APLISOL ID ONE (07:35)
[2016-12-04] MEDS: PROTONIX PO SCH (10:02)
[2016-12-04] MEDS: ZITHROMAX 500 MG in NACL 0.9% 250ML 250 ML IV SCH (13:44)
--- NOTE | 2016-12-04 14:10 | Progress Note ---
Assessment and Plan Assessment and plan: Patient is 61-year-old man history of hypertension, asthma and GERD who presents with shortness of breath and productive cough. Chest x-ray shows right upper lobe pneumonia, white blood cell count was 20.5. Blood glucose was 227, creatinine 1.7. Patient is febrile so I ordered Tylenol. -Aspiration pneumonia right upper lobe: Treat with antibiotics, follow blood culture, added renal dose zosyn -Sepsis due to pneumonia present on admission: Treat with antibiotics, stopped IV fluids and gave a dose of lasix iv x 1 which really helped . -Acute renal failure, vasomotor nephropathy: Treat with IV fluids, was getting fluid overloaded, therefore stopped ivf -Hyperglycemia, Checked A1c==>5.8 unlikely DM, so hyperglycemia due to pre-dm vs stress reaction, start diabetic diet and ordered sliding scale insulin -DVT prophylaxis: SCDs and subcutaneous heparin Full code 12/03: wbc increasing and febrile, ordered CT chest chest without contrast due to renal dysfunction==>consulted pulmonology d/w Dr. Carr: I will order HIV, PPD, change levaquin to azithromycin, continue iv zosyn. No need for Tb isolation per Charge nurse Lan. I d/w patient and he is agreeable for testing. Possible Bronchoscopy on Monday PPD placed today left forearm. Re-ordered HIV History Interval history: Patient seen and examined. Follow up on shortness breath and right-sided chest pain. He is on 2 L oxygen. Which is new. Imaging, old records, testing, labs , nursing notes reviewed. Shortness breath is better. He denies chest pain. Hospitalist Physical - Physical exam Narrative exam: GEN: WDWN, NAD, AWAKE, ALERT, ORIENTATED x 3 HEENT: NCAT, PERRL, EOMI, OP CLEAR NECK: SUPPLE, NO THYROMEGALY, NO JVD, NO LAD CVS: RRR, NORMAL S1S2 LUNGS/CHEST: Coarse breath sounds were right upper lung, NORMAL CHEST EXPANSION B, GOOD AIR ENTRY B ABD: SOFT, diffuse tenderness, distended, GBS, NO REBOUND OR GUARDING EXT/SKIN: NO SIGNIFICANT EDEMA OR RASH MSK: FROM X 4 EXTREMITIES NEURO: CN 2-12 GROSSLY INTACT, NO FOCAL DEFICITS PSY: CALM - Constitutional Vitals: Temp Pulse Resp BP Pulse Ox 98.9 F 102 H 16 157/95 94 12/04/16 12:25 12/04/16 13:23 12/04/16 13:23 12/04/16 12:25 12/04/16 12:25 General appearance: Absent: mild distress Results - Labs CBC & Chem 7: 12/03/16 05:31 06 05:31 Labs: Laboratory Last Values WBC 23.9 K/mm3 (4.5-11.0) H 12/03/16 05:31 RBC 4.19 M/mm3 (3.65-5.03) 12/03/16 05:31 Hgb 12.2 gm/dl (11.8-15.2) 12/03/16 05:31 Hct 36.9 % (35.5-45.6) 12/03/16 05:31 MCV 88 fl (84-94) 12/03/16 05:31 MCH 29 pg (28-32) 12/03/16 05:31 MCHC 33 % (32-34) 12/03/16 05:31 RDW 15.2 % (13.2-15.2) 12/03/16 05:31 Plt Count 134 K/mm3 (140-440) L 12/03/16 05:31 Add Manual Diff Complete 12/02/16 08:13 Total Counted 100 12/02/16 08:13 Seg Neutrophils % Manager Group 12/01/16 10:10 Seg Neuts % (Manual) 55.0 % (40.0-70.0) 12/02/16 08:13 Band Neutrophils % 35.0 % 12/02/16 08:13 Lymphocytes % (Manual) 5.0 % (13.4-35.0) L 12/02/16 08:13 Reactive Lymphs % (Man) 0 % 12/02/16 08:13 Monocytes % (Manual) 5.0 % (0.0-7.3) 12/02/16 08:13 Eosinophils % (Manual) 0 % (0.0-4.3) 12/02/16 08:13 Basophils % (Manual) 0 % (0.0-1.8) 12/02/16 08:13 Metamyelocytes % 0 % 12/02/16 08:13 Myelocytes % 0 % 12/02/16 08:13 Promyelocytes % 0 % 12/02/16 08:13 Blast Cells % 0 % 12/02/16 08:13 Nucleated RBC % Not Reportable 12/02/16 08:13 Seg Neutrophils # Man 12.3 K/mm3 (1.8-7.7) H 12/02/16 08:13 Band Neutrophils # 7.8 K/mm3 12/02/16 08:13 Lymphocytes # (Manual) 1.1 K/mm3 (1.2-5.4) L 12/02/16 08:13 Abs React Lymphs (Man) 0.0 K/mm3 12/02/16 08:13 Monocytes # (Manual) 1.1 K/mm3 (0.0-0.8) H 12/02/16 08:13 Eosinophils # (Manual) 0.0 K/mm3 (0.0-0.4) 12/02/16 08:13 Basophils # (Manual) 0.0 K/mm3 (0.0-0.1) 12/02/16 08:13 Metamyelocytes # 0.0 K/mm3 12/02/16 08:13 Myelocytes # 0.0 K/mm3 12/02/16 08:13 Promyelocytes # 0.0 K/mm3 12/02/16 08:13 Blast Cells # 0.0 K/mm3 12/02/16 08:13 WBC Morphology Not Reportable 12/02/16 08:13 Hypersegmented Neuts Not Reportable 12/02/16 08:13 Hyposegmented Neuts Not Reportable 12/02/16 08:13 Hypogranular Neuts Not Reportable 12/02/16 08:13 Smudge Cells Not Reportable 12/02/16 08:13 Toxic Granulation Not Reportable 12/02/16 08:13 Toxic Vacuolation Not Reportable 12/02/16 08:13 Dohle Bodies Not Reportable 12/02/16 08:13 Pelger-Huet Anomaly Not Reportable 12/02/16 08:13 Darius Rods Not Reportable 12/02/16 08:13 Platelet Estimate Appears decreased 12/02/16 08:13 Clumped Platelets Not Reportable 12/02/16 08:13 Plt Clumps, EDTA Not Reportable 12/02/16 08:13 Large Platelets Not Reportable 12/02/16 08:13 Giant Platelets Not Reportable 12/02/16 08:13 Platelet Satelliting Not Reportable 12/02/16 08:13 Plt Morphology Comment Not Reportable 12/02/16 08:13 RBC Morphology Normal 12/02/16 08:13 Dimorphic RBCs Not Reportable 12/02/16 08:13 Polychromasia Not Reportable 12/02/16 08:13 Hypochromasia Not Reportable 12/02/16 08:13 Poikilocytosis Not Reportable 12/02/16 08:13 Anisocytosis Not Reportable 12/02/16 08:13 Microcytosis Not Reportable 12/02/16 08:13 Macrocytosis Not Reportable 12/02/16 08:13 Spherocytes Not Reportable 12/02/16 08:13 Pappenheimer Bodies Not Reportable 12/02/16 08:13 Sickle Cells Not Reportable 12/02/16 08:13 Target Cells Not Reportable 12/02/16 08:13 Tear Drop Cells Not Reportable 12/02/16 08:13 Ovalocytes Not Reportable 12/02/16 08:13 Helmet Cells Not Reportable 12/02/16 08:13 [place] Bodies Not Reportable 12/02/16 08:13 [place] Rings Not Reportable 12/02/16 08:13 [place] Cells Not Reportable 12/02/16 08:13 Bite Cells Not Reportable 12/02/16 08:13 Crenated Cell Not Reportable 12/02/16 08:13 Elliptocytes Not Reportable 12/02/16 08:13 Acanthocytes (Spur) Not Reportable 12/02/16 08:13 Rouleaux Not Reportable 12/02/16 08:13 Hemoglobin C Crystals Not Reportable 12/02/16 08:13 Schistocytes Not Reportable 12/02/16 08:13 Malaria parasites Not Reportable 12/02/16 08:13 Domenic Bodies Not Reportable 12/02/16 08:13 Hem Pathologist Commnt No 12/02/16 08:13 PT 17.0 Sec. (12.2-14.9) H 12/01/16 12:50 INR 1.39 (0.87-1.13) H 12/01/16 12:50 VBG pH 7.395 (7.320-7.420) 12/01/16 12:50 Sodium 141 mmol/L (137-145) 12/03/16 05:31 Potassium 3.4 mmol/L (3.6-5.0) L 12/03/16 05:31 Chloride 100.9 mmol/L (98-107) 12/03/16 05:31 Carbon Dioxide 25 mmol/L (22-30) 12/03/16 05:31 Anion Gap 19 mmol/L 12/03/16 05:31 BUN 28 mg/dL (9-20) H 12/03/16 05:31 Creatinine 1.6 mg/dL (0.8-1.5) H 12/03/16 05:31 Estimated GFR 53 ml/min 12/03/16 05:31 BUN/Creatinine Ratio 17.50 % 12/03/16 05:31 Glucose 118 mg/dL (75-100) H 12/03/16 05:31 POC Glucose 187 (70-105) H 12/01/16 18:59 Hemoglobin A1c 5.8 % (4-6) 12/02/16 08:13 Lactic Acid 1.50 mmol/L (0.7-2.0) 12/01/16 16:06 Calcium 8.9 mg/dL (8.4-10.2) 12/03/16 05:31 Troponin T < 0.010 ng/mL (0.00-0.029) 12/01/16 10:10
--- NOTE | 2016-12-04 15:46 | Progress Note ---
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 Patient agreeable to bronch. Ordered today. Spoke with current nurse and informed her that I would not be making the patient NPO as I cannot guarantee that bronch will happen tomorrow. Patient knows not to eat breakfast if it shows up which it will. 2. Continue current abx therapy 3. Follow up HIV and TB skin test. Thank you for this consult, will follow along with you. Subjective Date of service: 12/04/16 Interval history: Per patient, stable, No better. Cough is present but not really productive of sputum. Discussed Bronch with patient today and family at bedside. Objective Vital Signs - 12hr 12/04/16 12/04/16 12/04/16 07:12 08:04 08:05 Temperature 99.2 F Pulse Rate [ 95 H Anterior Bilateral Throughout] Pulse Rate [ 102 H Left Radial] Respiratory 20 Rate Respiratory 18 Rate [Anterior Bilateral Throughout] Blood Pressure 148/96 [Right Arm] O2 Sat by Pulse 95 98 Oximetry 12/04/16 12/04/16 12/04/16 08:08 08:15 12:25 Temperature 98.9 F Pulse Rate [ 97 H Anterior Bilateral Throughout] Pulse Rate [ 100 H Left Radial] Respiratory 20 Rate Respiratory 18 Rate [Anterior Bilateral Throughout] Blood Pressure 157/95 [Right Arm] O2 Sat by Pulse 98 94 Oximetry 12/04/16 12/04/16 13:12 13:23 Temperature Pulse Rate [ 99 H 102 H Anterior Bilateral Throughout] Pulse Rate [ Left Radial] Respiratory Rate Respiratory 16 16 Rate [Anterior Bilateral Throughout] Blood Pressure [Right Arm] O2 Sat by Pulse Oximetry Constitutional: no acute distress, alert, appears uncomfortable Eyes: non-icteric ENT: oropharynx moist, other (dentition is not the best) Neck: supple Effort: mildly labored Ascultation: Right: wheezes (upper lobe) Percussion: Bilateral: not dull Tactile fremitus: Bilateral: normal Cardiovascular: regular rate and rhythm Gastrointestinal: normoactive bowel sounds Extremities: no cyanosis, no edema, pink and warm, pulses normal CBC and BMP: 12/03/16 05:31 12/03/16 05:31 ABG, PT/INR, D-dimer: PT/INR, D-dimer PT 17.0 Sec. (12.2-14.9) H 12/01/16 12:50 INR 1.39 (0.87-1.13) H 12/01/16 12:50 Abnormal lab findings: Abnormal Labs 12/01/16 12/02/16 12/03/16 18:59 08:13 05:31 WBC 22.4 H 23.9 H Plt Count 118 L 134 L Lymphocytes % (Manual) 5.0 L Seg Neutrophils # Man 12.3 H Lymphocytes # (Manual) 1.1 L Monocytes # (Manual) 1.1 H Potassium BUN Creatinine Glucose POC Glucose 187 H 12/03/16 05:31 WBC Plt Count Lymphocytes % (Manual) Seg Neutrophils # Man Lymphocytes # (Manual) Monocytes # (Manual) Potassium 3.4 L BUN 28 H Creatinine 1.6 H Glucose 118 H POC Glucose
[2016-12-04 16:11] LABS: INR 1.1 (0.87-1.13)
[2016-12-04 16:12] LABS: Partial Thromboplastin Time 36.8 Sec. (24.2-36.6)
[2016-12-04 18:16] LABS: HIV-1 Antigen p24 Non React (Non React); HIVR-1/2 Ab Non React (Non React)
[2016-12-05] MEDS: ATROVENT IH SCH ×3 (09:19→20:44)
[2016-12-05] MEDS: XOPENEX IH SCH ×3 (09:19→20:44)
--- NOTE | 2016-12-05 09:45 | Progress Note ---
Assessment and Plan Assessment and plan: Patient is 61-year-old man history of hypertension, asthma and GERD who presents with shortness of breath and productive cough. Chest x-ray shows right upper lobe pneumonia, white blood cell count was 20.5. Blood glucose was 227, creatinine 1.7. Patient is febrile so I ordered Tylenol. -Aspiration pneumonia right upper lobe: Treat with antibiotics, follow blood culture, added renal dose zosyn -Sepsis due to pneumonia present on admission: Treat with antibiotics, stopped IV fluids and gave a dose of lasix iv x 1 which really helped . -Acute renal failure, vasomotor nephropathy: Treat with IV fluids, was getting fluid overloaded, therefore stopped ivf -Hyperglycemia, Checked A1c==>5.8 unlikely DM, so hyperglycemia due to pre-dm vs stress reaction, start diabetic diet and ordered sliding scale insulin -DVT prophylaxis: SCDs and subcutaneous heparin Full code 12/03: wbc increasing and febrile, ordered CT chest chest without contrast due to renal dysfunction==>consulted pulmonology d/w Dr. Carr: I will order HIV, PPD, change levaquin to azithromycin, continue iv zosyn. No need for Tb isolation per Charge nurse Lan. I d/w patient and he is agreeable for testing. Possible Bronchoscopy on Monday PPD placed Monday left forearm. Read PPD tomorrow ?Bronch soon HIV negative History Interval history: Patient seen and examined. Follow up on shortness breath and right-sided chest pain. He is on 2 L oxygen. Which is new. Imaging, old records, testing, labs , nursing notes reviewed. Shortness breath is better. He denies chest pain. Pulse ox was 88% room air at rest while sitting down in a chair Hospitalist Physical - Physical exam Narrative exam: GEN: WDWN, NAD, AWAKE, ALERT, ORIENTATED x 3 HEENT: NCAT, PERRL, EOMI, OP CLEAR NECK: SUPPLE, NO THYROMEGALY, NO JVD, NO LAD CVS: RRR, NORMAL S1S2 LUNGS/CHEST: Coarse breath sounds were right upper lung, NORMAL CHEST EXPANSION B, GOOD AIR ENTRY B ABD: SOFT, diffuse tenderness, distended, GBS, NO REBOUND OR GUARDING EXT/SKIN: NO SIGNIFICANT EDEMA OR RASH MSK: FROM X 4 EXTREMITIES NEURO: CN 2-12 GROSSLY INTACT, NO FOCAL DEFICITS PSY: CALM - Constitutional Vitals: Temp Pulse Resp BP Pulse Ox 99.0 F 104 H 18 156/102 98 12/05/16 08:00 12/05/16 09:20 12/05/16 09:20 12/05/16 08:00 12/05/16 09:21 General appearance: Absent: mild distress Results - Labs CBC & Chem 7: 12/03/16 05:31 12/03/16 05:31 Labs: Laboratory Last Values WBC 23.9 K/mm3 (4.5-11.0) H 12/03/16 05:31 RBC 4.19 M/mm3 (3.65-5.03) 12/03/16 05:31 Hgb 12.2 gm/dl (11.8-15.2) 12/03/16 05:31 Hct 36.9 % (35.5-45.6) 12/03/16 05:31 MCV 88 fl (84-94) 12/03/16 05:31 MCH 29 pg (28-32) 12/03/16 05:31 MCHC 33 % (32-34) 12/03/16 05:31 RDW 15.2 % (13.2-15.2) 12/03/16 05:31 Plt Count 134 K/mm3 (140-440) L 12/03/16 05:31 Add Manual Diff Complete 12/02/16 08:13 Total Counted 100 12/02/16 08:13 Seg Neutrophils % Flavorings Compounder 12/01/16 10:10 Seg Neuts % (Manual) 55.0 % (40.0-70.0) 12/02/16 08:13 Band Neutrophils % 35.0 % 12/02/16 08:13 Lymphocytes % (Manual) 5.0 % (13.4-35.0) L 12/02/16 08:13 Reactive Lymphs % (Man) 0 % 12/02/16 08:13 Monocytes % (Manual) 5.0 % (0.0-7.3) 12/02/16 08:13 Eosinophils % (Manual) 0 % (0.0-4.3) 12/02/16 08:13 Basophils % (Manual) 0 % (0.0-1.8) 12/02/16 08:13 Metamyelocytes % 0 % 12/02/16 08:13 Myelocytes % 0 % 12/02/16 08:13 Promyelocytes % 0 % 12/02/16 08:13 Blast Cells % 0 % 12/02/16 08:13 Nucleated RBC % Not Reportable 12/02/16 08:13 Seg Neutrophils # Man 12.3 K/mm3 (1.8-7.7) H 12/02/16 08:13 Band Neutrophils # 7.8 K/mm3 12/02/16 08:13 Lymphocytes # (Manual) 1.1 K/mm3 (1.2-5.4) L 12/02/16 08:13 Abs React Lymphs (Man) 0.0 K/mm3 12/02/16 08:13 Monocytes # (Manual) 1.1 K/mm3 (0.0-0.8) H 12/02/16 08:13 Eosinophils # (Manual) 0.0 K/mm3 (0.0-0.4) 12/02/16 08:13 Basophils # (Manual) 0.0 K/mm3 (0.0-0.1) 12/02/16 08:13 Metamyelocytes # 0.0 K/mm3 12/02/16 08:13 Myelocytes # 0.0 K/mm3 12/02/16 08:13 Promyelocytes # 0.0 K/mm3 12/02/16 08:13 Blast Cells # 0.0 K/mm3 12/02/16 08:13 WBC Morphology Not Reportable 12/02/16 08:13 Hypersegmented Neuts Not Reportable 12/02/16 08:13 Hyposegmented Neuts Not Reportable 12/02/16 08:13 Hypogranular Neuts Not Reportable 12/02/16 08:13 Smudge Cells Not Reportable 12/02/16 08:13 Toxic Granulation Not Reportable 12/02/16 08:13 Toxic Vacuolation Not Reportable 12/02/16 08:13 Dohle Bodies Not Reportable 12/02/16 08:13 Pelger-Huet Anomaly Not Reportable 12/02/16 08:13 Darius Rods Not Reportable 12/02/16 08:13 Platelet Estimate Appears decreased 12/02/16 08:13 Clumped Platelets Not Reportable 12/02/16 08:13 Plt Clumps, EDTA Not Reportable 12/02/16 08:13 Large Platelets Not Reportable 12/02/16 08:13 Giant Platelets Not Reportable 12/02/16 08:13 Platelet Satelliting Not Reportable 12/02/16 08:13 Plt Morphology Comment Not Reportable 12/02/16 08:13 RBC Morphology Normal 12/02/16 08:13 Dimorphic RBCs Not Reportable 12/02/16 08:13 Polychromasia Not Reportable 12/02/16 08:13 Hypochromasia Not Reportable 12/02/16 08:13 Poikilocytosis Not Reportable 12/02/16 08:13 Anisocytosis Not Reportable 12/02/16 08:13 Microcytosis Not Reportable 12/02/16 08:13 Macrocytosis Not Reportable 12/02/16 08:13 Spherocytes Not Reportable 12/02/16 08:13 Pappenheimer Bodies Not Reportable 12/02/16 08:13 Sickle Cells Not Reportable 12/02/16 08:13 Target Cells Not Reportable 12/02/16 08:13 Tear Drop Cells Not Reportable 12/02/16 08:13 Ovalocytes Not Reportable 12/02/16 08:13 Helmet Cells Not Reportable 12/02/16 08:13 [place] Bodies Not Reportable 12/02/16 08:13 [place] Rings Not Reportable 12/02/16 08:13 [place] Cells Not Reportable 12/02/16 08:13 Bite Cells Not Reportable 12/02/16 08:13 Crenated Cell Not Reportable 12/02/16 08:13 Elliptocytes Not Reportable 12/02/16 08:13 Acanthocytes (Spur) Not Reportable 12/02/16 08:13 Rouleaux Not Reportable 12/02/16 08:13 Hemoglobin C Crystals Not Reportable 12/02/16 08:13 Schistocytes Not Reportable 12/02/16 08:13 Malaria parasites Not Reportable 12/02/16 08:13 Domenic Bodies Not Reportable 12/02/16 08:13 Hem Pathologist Commnt No 12/02/16 08:13 PT 14.1 Sec. (12.2-14.9) 12/04/16 15:46 INR 1.10 (0.87-1.13) 12/04/16 15:46 APTT 36.8 Sec. (24.2-36.6) H 12/04/16 15:46 VBG pH 7.395 (7.320-7.420) 12/01/16 12:50 Sodium 141 mmol/L (137-145) 12/03/16 05:31 Potassium 3.4 mmol/L (3.6-5.0) L 12/03/16 05:31 Chloride 100.9 mmol/L (98-107) 12/03/16 05:31 Carbon Dioxide 25 mmol/L (22-30) 12/03/16 05:31 Anion Gap 19 mmol/L 12/03/16 05:31 BUN 28 mg/dL (9-20) H 12/03/16 05:31 Creatinine 1.6 mg/dL (0.8-1.5) H 12/03/16 05:31 Estimated GFR 53 ml/min 12/03/16 05:31 BUN/Creatinine Ratio 17.50 % 12/03/16 05:31 Glucose 118 mg/dL (75-100) H 12/03/16 05:31 POC Glucose 187 (70-105) H 12/01/16 18:59 Hemoglobin A1c 5.8 % (4-6) 12/02/16 08:13 Lactic Acid 1.50 mmol/L (0.7-2.0) 12/01/16 16:06 Calcium 8.9 mg/dL (8.4-10.2) 12/03/16 05:31 Troponin T < 0.010 ng/mL (0.00-0.029) 12/01/16 10:10 HIV 1&2 Antibody Rapid Non react (Non React) 12/04/16 15:46 HIV P24 Antigen Non react (Non React) 12/04/16 15:46
[2016-12-05] MEDS: PROTONIX PO SCH (10:28)
[2016-12-05] MEDS: ZOSYN/NS 4.5GM/100ML 4.5 GM/100 ML VIAL IV SCH ×2 (12:51→12:52)
--- NOTE | 2016-12-05 13:07 | Progress Note ---
Assessment and Plan Right upper lobe pneumonia Bronchiectasis . Cystic bronchiectatic changes affecting the left upper lobe and left lower lobe areas spiculated lesion left lower lobe-[address] scan recommendations regarding follow-up in 6 months Recommendations Status discussed with the patient and in the scheduling staff. Patient will be scheduled for bronchoscopy tomorrow at 2 PM. Could not be done today due to scheduling conflicts. I discussed this with the patient and he is agreeable to proceed here as discussed. Risks and benefits also explained detail. Subjective Date of service: 12/05/16 Principal diagnosis: pneumonia, bronchiectasis, spiculated lesion left lower lobe Objective Vital Signs - 12hr 12/05/16 12/05/16 12/05/16 08:00 09:20 09:21 Temperature 99.0 F Pulse Rate [ 94 H Left Radial] Pulse Rate [ 104 H 104 H Posterior Left Throughout] Respiratory 20 Rate Respiratory 18 18 Rate [Posterior Left Throughout] Blood Pressure 156/102 [Left Arm] O2 Sat by Pulse 98 Oximetry Constitutional: no acute distress, alert, appears uncomfortable Eyes: non-icteric ENT: oropharynx moist Neck: supple Effort: mildly labored Ascultation: Right: wheezes (upper lobe) Percussion: Bilateral: not dull Tactile fremitus: Bilateral: normal Cardiovascular: regular rate and rhythm Gastrointestinal: normoactive bowel sounds Extremities: no cyanosis, no edema, pink and warm, pulses normal Neurologic: normal mental status CBC and BMP: 12/03/16 05:31 12/03/16 05:31 ABG, PT/INR, D-dimer: PT/INR, D-dimer PT 14.1 Sec. (12.2-14.9) 12/04/16 15:46 INR 1.10 (0.87-1.13) 12/04/16 15:46 Abnormal lab findings: Abnormal Labs 12/01/16 12/02/16 12/03/16 18:59 08:13 05:31 WBC 22.4 H 23.9 H Plt Count 118 L 134 L Lymphocytes % (Manual) 5.0 L Seg Neutrophils # Man 12.3 H Lymphocytes # (Manual) 1.1 L Monocytes # (Manual) 1.1 H APTT Potassium BUN Creatinine Glucose POC Glucose 187 H 12/03/16 12/04/16 05:31 15:46 WBC Plt Count Lymphocytes % (Manual) Seg Neutrophils # Man Lymphocytes # (Manual) Monocytes # (Manual) APTT 36.8 H Potassium 3.4 L BUN 28 H Creatinine 1.6 H Glucose 118 H POC Glucose
[2016-12-05] MEDS: ZITHROMAX 500 MG in NACL 0.9% 250ML 250 ML IV SCH (17:42)
[2016-12-05] MEDS ORDERED: ZOSYN/NS 4.5GM/100ML 4.5 GM/100 ML VIAL IV SCH (22:00)
[2016-12-06 08:28] LABS: Hematocrit 37.4 % (35.5-45.6); Hemoglobin 12.2 gm/dl (11.8-15.2); Mean Corpuscular HGB Conc 33 % (32-34); Mean Corpuscular Hemoglobin 29 pg (28-32); Mean Corpuscular Volume 89 fl (84-94); Platelet Count 195 K/mm3 (140-440); Red Blood Count 4.22 M/mm3 (3.65-5.03); Red Cell Distribution Width 15.6 % (13.2-15.2); White Blood Count 10.8 K/mm3 (4.5-11.0)
[2016-12-06 08:40] LABS: Anion Gap 14 mmol/L; BUN/Creatinine Ratio 13.63; Blood Urea Nitrogen 15 mg/dL (9-20); Calcium 9.4 mg/dL (8.4-10.2); Carbon Dioxide 30 mmol/L (22-30); Glucose 92 mg/dL (75-100); Potassium 3.8 mmol/L (3.6-5.0); Sodium 141 mmol/L (137-145)
[2016-12-06] MEDS: XOPENEX IH SCH ×3 (09:37→20:04)
[2016-12-06] MEDS: ATROVENT IH SCH ×3 (09:37→20:04)
[2016-12-06] MEDS: PROTONIX PO SCH (09:52)
[2016-12-06] MEDS ORDERED: NACL 0.9% 1000 ML 1,000 ML ONE ×2 (13:09→13:15)
[2016-12-06] MEDS ORDERED: HURRICAINE ONE 20% TOPICAL SPRAY MM (13:26)
[2016-12-06] MEDS ORDERED: XYLOCAINE 1% 20 mL ONE (13:27)
[2016-12-06] MEDS ORDERED: LIDOCAINE VISCOUS 2% ONE (13:27)
[2016-12-06] MEDS ORDERED: ADRENALIN ONE (13:28)
--- NOTE | 2016-12-06 13:47 | Anesthesia Consultation ---
Anesthesia Consult and Med Hx Date of service: 12/06/16 - Airway Anesthetic Teeth Evaluation: Good ROM Head & Neck: Adequate Mental/Hyoid Distance: Adequate Mallampati Class: Class II Intubation Access Assessment: Probably Good - Pre-Anesthesia Comment Pre-Anesthesia Comments: Rt upper lobe pneumonia, cystic bronchiectatic change Lt Upper lobe, LLL, elevated WBC, elevated BP: Dr. fagan case, follow up with hospitalist for further BP control - Pulmonary Hx Asthma: Yes (inhaler prn, last used 8 m ago) Hx Respiratory Symptoms: Yes (productive cough, SOB) SOB: Yes (on exertion) Home Oxygen Therapy: No (on 2 L of O2 on floor) - Cardiovascular System Hx Hypertension: Yes (170s/110s, not on meds) - Central Nervous System Hx Psychiatric Problems: No - Gastrointestinal Hx Gastroesophageal Reflux Disease: (food related) - Endocrine Hx End Stage Renal Disease: No - Other Systems Hx Cancer: No
--- NOTE | 2016-12-06 13:48 | Progress Note ---
Assessment and Plan Uncontrolled HBP. On arrival to [facility] for procedure, BP 175/115. After repeated monitoring , 189/120. Chart review shows PMH of 'HTN urgency". Patient not taking meds at home. Right upper lobe pneumonia Bronchiectasis . Cystic bronchiectatic changes affecting the left upper lobe and left lower lobe areas spiculated lesion left lower lobe-[address] scan recommendations regarding follow-up in 6 months Recommendations Patient bronch cancelled in view of HBP status. Keep NPO x 2 hrs then re-start med,food if water tolerated Call hospitalist for HTN management orders- ordered Enlaprilat IV x 1 with serial BP check, further orders to follow from hospital medicine. Reschedule bronch depending on pt status. Subjective Date of service: 12/06/16 Principal diagnosis: pneumonia, bronchiectasis, spiculated lesion left lower lobe Interval history: No cough or headache Objective Vital Signs - 12hr 12/06/16 12/06/16 12/06/16 04:00 07:00 09:35 Temperature 99.0 F 99.0 F Pulse Rate [ 92 H 101 H Left Radial] Pulse Rate [ 105 H Posterior Left Throughout] Respiratory 20 20 Rate Respiratory 16 Rate [Posterior Left Throughout] Blood Pressure 141/87 179/116 [Right Arm] O2 Sat by Pulse 97 100 Oximetry 12/06/16 12/06/16 09:45 09:48 Temperature Pulse Rate [ Left Radial] Pulse Rate [ 106 H Posterior Left Throughout] Respiratory Rate Respiratory 18 Rate [Posterior Left Throughout] Blood Pressure [Right Arm] O2 Sat by Pulse 96 Oximetry Constitutional: no acute distress, alert, appears uncomfortable Eyes: non-icteric ENT: oropharynx moist Neck: supple Effort: mildly labored Ascultation: Right: wheezes (upper lobe) Percussion: Bilateral: not dull Tactile fremitus: Bilateral: normal Cardiovascular: regular rate and rhythm Gastrointestinal: normoactive bowel sounds Extremities: no cyanosis, no edema, pink and warm, pulses normal Neurologic: normal mental status CBC and BMP: 12/06/16 07:46 12/06/16 07:50 ABG, PT/INR, D-dimer: PT/INR, D-dimer PT 14.1 Sec. (12.2-14.9) 12/04/16 15:46 INR 1.10 (0.87-1.13) 12/04/16 15:46 Abnormal lab findings: Abnormal Labs 12/01/16 12/02/16 12/03/16 18:59 08:13 05:31 WBC 22.4 H 23.9 H RDW Plt Count 118 L 134 L Lymphocytes % (Manual) 5.0 L Seg Neutrophils # Man 12.3 H Lymphocytes # (Manual) 1.1 L Monocytes # (Manual) 1.1 H APTT Potassium BUN Creatinine Glucose POC Glucose 187 H 12/03/16 12/04/16 12/06/16 05:31 15:46 07:46 WBC RDW 15.6 H Plt Count Lymphocytes % (Manual) Seg Neutrophils # Man Lymphocytes # (Manual) Monocytes # (Manual) APTT 36.8 H Potassium 3.4 L BUN 28 H Creatinine 1.6 H Glucose 118 H POC Glucose
[2016-12-06] MEDS ORDERED: VASOTEC IV ONE (15:00)
[2016-12-06] MEDS: ZITHROMAX 500 MG in NACL 0.9% 250ML 250 ML IV SCH (16:37)
[2016-12-06] MEDS: NACL 0.9% 1000 ML 1,000 ML IV SCH (16:39)
--- NOTE | 2016-12-06 17:15 | Progress Note ---
Assessment and Plan Patient is 61-year-old man history of hypertension, asthma and GERD who presents with shortness of breath and productive cough. Chest x-ray shows right upper lobe pneumonia, white blood cell count was 20.5. Blood glucose was 227, creatinine 1.7. Aspiration pneumonia right upper lobe: - Treat with antibiotics, blood culture negative, added renal dose zosyn - PPD placed Monday left forearm. Read PPD today - Bronch today, HIV negative Sepsis due to pneumonia present on admission: - Treat with antibiotics, Acute renal failure, vasomotor nephropathy: - improved with IV fluids, Hyperglycemia, Checked A1c==>5.8 unlikely DM, - so hyperglycemia due to pre-dm vs stress reaction, start diabetic diet and ordered sliding scale insulin DVT prophylaxis: SCDs and subcutaneous heparin Full code Subjective Date of service: 12/06/16 Principal diagnosis: pneumonia, bronchiectasis, spiculated lesion left lower lobe Interval history: Patient seen and examined. Follow up on shortness breath and right-sided chest pain. He is on 2 L oxygen. Shortness breath is better. He denies chest pain. Plan for bronch today. Objective - Exam Narrative Exam: GEN: WDWN, NAD, AWAKE, ALERT, ORIENTATED x 3 HEENT: NCAT, PERRL, EOMI, OP CLEAR NECK: SUPPLE, NO THYROMEGALY, NO JVD, NO LAD CVS: RRR, NORMAL S1S2 LUNGS/CHEST: Coarse breath sounds were right upper lung, NORMAL CHEST EXPANSION B, GOOD AIR ENTRY B ABD: SOFT, diffuse tenderness, distended, GBS, NO REBOUND OR GUARDING EXT/SKIN: NO SIGNIFICANT EDEMA OR RASH MSK: FROM X 4 EXTREMITIES NEURO: CN 2-12 GROSSLY INTACT, NO FOCAL DEFICITS PSY: CALM - Constitutional Vitals: Vital Signs - 12hr 12/06/16 12/06/16 12/06/16 07:00 09:35 09:45 Temperature 99.0 F Pulse Rate Pulse Rate [ 101 H Left Radial] Pulse Rate [ 105 H 106 H Posterior Left Throughout] Respiratory 20 Rate Respiratory 16 18 Rate [Posterior Left Throughout] Blood Pressure Blood Pressure 179/116 [Right Arm] O2 Sat by Pulse 100 Oximetry 12/06/16 12/06/16 12/06/16 09:48 16:00 16:19 Temperature 100.2 F H Pulse Rate 109 H Pulse Rate [ 109 H Left Radial] Pulse Rate [ Posterior Left Throughout] Respiratory 20 Rate Respiratory Rate [Posterior Left Throughout] Blood Pressure 179/107 Blood Pressure 179/107 [Right Arm] O2 Sat by Pulse 96 Oximetry - Labs CBC & Chem 7: 12/06/16 07:46 12/06/16 07:50 Labs: Abnormal lab results 12/06/16 Range/Units 07:46 RDW 15.6 H (13.2-15.2) %
[2016-12-06] MEDS: ZOSYN/NS 4.5GM/100ML 4.5 GM/100 ML VIAL IV SCH ×2 (18:30→22:10)
[2016-12-06] MEDS: TYLENOL PO PRN (22:11)
[2016-12-07 06:58] LABS: Hematocrit 35.7 % (35.5-45.6); Hemoglobin 11.6 gm/dl (11.8-15.2); Mean Corpuscular HGB Conc 33 % (32-34); Mean Corpuscular Hemoglobin 29 pg (28-32); Mean Corpuscular Volume 88 fl (84-94); Platelet Count 207 K/mm3 (140-440); Red Blood Count 4.06 M/mm3 (3.65-5.03); Red Cell Distribution Width 15.3 % (13.2-15.2); White Blood Count 10.6 K/mm3 (4.5-11.0)
[2016-12-07 07:14] LABS: Anion Gap 14 mmol/L; Blood Urea Nitrogen 15 mg/dL (9-20); Carbon Dioxide 28 mmol/L (22-30); Chloride 100.1 mmol/L (98-107); Glucose 86 mg/dL (75-100); Potassium 3.7 mmol/L (3.6-5.0); Sodium 138 mmol/L (137-145)
[2016-12-07] MEDS: XOPENEX IH SCH ×3 (08:03→15:40)
[2016-12-07] MEDS: ATROVENT IH SCH ×3 (08:03→15:40)
[2016-12-07] MEDS ORDERED: NORMODYNE IV ONE (09:10)
[2016-12-07] MEDS: PROTONIX PO SCH (09:58)
[2016-12-07] MEDS ORDERED: NORMODYNE IV PRN (10:00)
--- NOTE | 2016-12-07 10:09 | Progress Note ---
Assessment and Plan Patient is 61-year-old man history of hypertension, asthma and GERD who presents with shortness of breath and productive cough. Chest x-ray shows right upper lobe pneumonia, white blood cell count was 20.5. Blood glucose was 227, creatinine 1.7. Pneumonia right upper lobe: - suspected aspiration on admission - Treat with antibiotics, blood culture negative, added renal dose zosyn - PPD positive, placed on respiratory isolation - Bronch was cancelled yesterday due to elevated BP, HIV negative - wait for further pulmonary recommendation Sepsis due to pneumonia present on admission: - Treat with antibiotics, Acute renal failure, vasomotor nephropathy: - improved with IV fluids, HTN, accelerated - placed on BP meds Hyperglycemia, Checked A1c==>5.8 unlikely DM, - so hyperglycemia due to pre-dm vs stress reaction, on diabetic diet and sliding scale insulin DVT prophylaxis: SCDs and subcutaneous heparin Full code Subjective Date of service: 12/07/16 Principal diagnosis: pneumonia, bronchiectasis, spiculated lesion left lower lobe Interval history: Patient seen and examined. Follow up on shortness breath and right-sided chest pain. He is on 2 L oxygen. Shortness breath is better. He denies chest pain. c/o constipation. Objective - Exam Narrative Exam: GEN: WDWN, NAD, AWAKE, ALERT, ORIENTATED x 3 HEENT: NCAT, PERRL, EOMI, OP CLEAR NECK: SUPPLE, NO THYROMEGALY, NO JVD, NO LAD CVS: RRR, NORMAL S1S2 LUNGS/CHEST: Coarse breath sounds were right upper lung, NORMAL CHEST EXPANSION B, GOOD AIR ENTRY B ABD: SOFT, diffuse tenderness, distended, GBS, NO REBOUND OR GUARDING EXT/SKIN: NO SIGNIFICANT EDEMA OR RASH MSK: FROM X 4 EXTREMITIES NEURO: CN 2-12 GROSSLY INTACT, NO FOCAL DEFICITS PSY: CALM - Constitutional Vitals: Vital Signs - 12hr 12/07/16 12/07/16 12/07/16 00:00 04:07 08:02 Temperature 99.0 F 98.6 F Pulse Rate Pulse Rate [ 110 H 116 H Left Radial] Respiratory 22 22 Rate Blood Pressure Blood Pressure 130/87 129/84 [Right Arm] O2 Sat by Pulse 97 97 94 Oximetry 12/07/16 12/07/16 08:05 09:57 Temperature 99.3 F Pulse Rate 93 H Pulse Rate [ 93 H Left Radial] Respiratory 18 Rate Blood Pressure 190/117 Blood Pressure 190/117 [Right Arm] O2 Sat by Pulse 98 Oximetry - Labs CBC & Chem 7: 12/07/16 06:45 12/07/16 06:45 Labs: Abnormal lab results 12/07/16 Range/Units 06:45 Hgb 11.6 L (11.8-15.2) gm/dl RDW 15.3 H (13.2-15.2) %
[2016-12-07] MEDS: COREG PO SCH ×2 (11:43→22:49)
[2016-12-07] MEDS: NORVASC PO SCH (11:45)
[2016-12-07] MEDS: NACL 0.9% 1000 ML 1,000 ML IV SCH (11:50)
--- NOTE | 2016-12-07 12:29 | Progress Note ---
Assessment and Plan Uncontrolled HBP. She'll elevated today. Been managed by internal medicine/ hospitalist. Positive PPD. Patient was placed on isolation at this point. He recently may have migrated from [facility], denies any prior TB contacts but history is very sketchy at this point. No prior PPD but he is not sure when I ask him about BCG Right upper lobe pneumonia. Complete antibiotics. Bronchiectasis . Cystic bronchiectatic changes affecting the left upper lobe and left lower lobe areas spiculated lesion left lower lobe-[address] scan recommendations regarding follow-up in 6 months Recommendations Tentative bronch tomorrow depending on patient HBP status. Keep NPO after midnight Will order an IRGA test to verify PPD intake BCG was given I agree with isolation precautions Subjective Date of service: 12/07/16 Principal diagnosis: pneumonia, bronchiectasis, spiculated lesion left lower lobe Interval history: Denies fever or cough or shortness of breath. No headaches or chest pain Objective Vital Signs - 12hr 12/07/16 12/07/16 12/07/16 04:07 08:02 08:05 Temperature 98.6 F 99.3 F Pulse Rate Pulse Rate [ 116 H 93 H Left Radial] Respiratory 22 18 Rate Blood Pressure Blood Pressure [Left Arm] Blood Pressure 129/84 190/117 [Right Arm] O2 Sat by Pulse 97 94 98 Oximetry 12/07/16 12/07/16 09:57 11:36 Temperature 99.3 F Pulse Rate 93 H Pulse Rate [ 89 Left Radial] Respiratory 18 Rate Blood Pressure 190/117 Blood Pressure 171/96 [Left Arm] Blood Pressure [Right Arm] O2 Sat by Pulse 98 Oximetry Constitutional: no acute distress, alert, appears uncomfortable Eyes: non-icteric ENT: oropharynx moist Neck: supple, no lymphadenopathy, no JVD Effort: mildly labored Ascultation: Bilateral: clear Percussion: Bilateral: not dull Tactile fremitus: Bilateral: normal Cardiovascular: regular rate and rhythm Gastrointestinal: normoactive bowel sounds Extremities: no cyanosis, no edema, pink and warm, pulses normal Neurologic: normal mental status CBC and BMP: 12/07/16 06:45 12/07/16 06:45 ABG, PT/INR, D-dimer: PT/INR, D-dimer PT 14.1 Sec. (12.2-14.9) 12/04/16 15:46 INR 1.10 (0.87-1.13) 12/04/16 15:46 Abnormal lab findings: Abnormal Labs 12/01/16 12/02/16 12/03/16 18:59 08:13 05:31 WBC 22.4 H 23.9 H Hgb RDW Plt Count 118 L 134 L Lymphocytes % (Manual) 5.0 L Seg Neutrophils # Man 12.3 H Lymphocytes # (Manual) 1.1 L Monocytes # (Manual) 1.1 H APTT Potassium BUN Creatinine Glucose POC Glucose 187 H 12/03/16 12/04/16 12/06/16 05:31 15:46 07:46 WBC Hgb RDW 15.6 H Plt Count Lymphocytes % (Manual) Seg Neutrophils # Man Lymphocytes # (Manual) Monocytes # (Manual) APTT 36.8 H Potassium 3.4 L BUN 28 H Creatinine 1.6 H Glucose 118 H POC Glucose 12/07/16 06:45 WBC Hgb 11.6 L RDW 15.3 H Plt Count Lymphocytes % (Manual) Seg Neutrophils # Man Lymphocytes # (Manual) Monocytes # (Manual) APTT Potassium BUN Creatinine Glucose POC Glucose
[2016-12-07] MEDS: ZOSYN/NS 4.5GM/100ML 4.5 GM/100 ML VIAL IV SCH ×3 (13:42→22:39)
[2016-12-07] MEDS ORDERED: MIRALAX 3350 PO PRN (16:57)
[2016-12-07] MEDS ORDERED: DULCOLAX PR PRN (16:58)
[2016-12-07] MEDS: ZITHROMAX 500 MG in NACL 0.9% 250ML 250 ML IV SCH (19:21)
[2016-12-08] MEDS: ZOSYN/NS 4.5GM/100ML 4.5 GM/100 ML VIAL IV SCH ×3 (05:26→21:59)
[2016-12-08] MEDS: XOPENEX IH SCH ×4 (07:57→20:15)
[2016-12-08] MEDS: ATROVENT IH SCH ×4 (07:58→20:15)
[2016-12-08 08:34] LABS: Hematocrit 37.2 % (35.5-45.6); Hemoglobin 12.3 gm/dl (11.8-15.2); Mean Corpuscular HGB Conc 33 % (32-34); Mean Corpuscular Hemoglobin 29 pg (28-32); Mean Corpuscular Volume 88 fl (84-94); Platelet Count 256 K/mm3 (140-440); Red Blood Count 4.22 M/mm3 (3.65-5.03); Red Cell Distribution Width 15.4 % (13.2-15.2); White Blood Count 11.9 K/mm3 (4.5-11.0)
[2016-12-08 08:51] LABS: Anion Gap 17 mmol/L; Blood Urea Nitrogen 16 mg/dL (9-20); Calcium 9.3 mg/dL (8.4-10.2); Carbon Dioxide 27 mmol/L (22-30); Chloride 99.6 mmol/L (98-107); Glucose 74 mg/dL (75-100); Potassium 4.1 mmol/L (3.6-5.0); Sodium 139 mmol/L (137-145)
[2016-12-08] MEDS: NORVASC PO SCH (09:32)
[2016-12-08] MEDS: COREG PO SCH ×2 (09:32→22:02)
[2016-12-08] MEDS ORDERED: WATER FOR IRRIG STERILE IR ONE (09:49)
[2016-12-08] MEDS ORDERED: NACL 0.9% 1000 ML 1,000 ML ONE ×2 (09:49)
[2016-12-08] MEDS ORDERED: XYLOCAINE 1% 20 mL ONE (09:50)
[2016-12-08] MEDS ORDERED: LIDOCAINE VISCOUS 2% ONE (09:50)
[2016-12-08] MEDS ORDERED: HURRICAINE ONE 20% TOPICAL SPRAY MM ×2 (09:50→10:28)
[2016-12-08] MEDS ORDERED: ADRENALIN ONE (09:51)
--- NOTE | 2016-12-08 10:24 | Anesthesia Consultation ---
Anesthesia Consult and Med Hx Date of service: 12/08/16 - Pulmonary Exam CTA: Yes (crackle) - Cardiac Exam Cardiac Exam: RRR - Pre-Operative Health Status ASA Pre-Surgery Classification: ASA3 - Pre-Anesthesia Comment Pre-Anesthesia Comments: Rt upper lobe pneumonia, cystic bronchiectatic change Lt Upper lobe, LLL, elevated WBC. Case was cx on Monday due to uncontrolled BP. PD skin stress is positive, respiratory precaution. - Pulmonary Hx Smoking: No Hx Asthma: Yes (inhaler prn, last used 8 m ago) Hx Respiratory Symptoms: Yes (productive cough, SOB) SOB: Yes (on exertion) Home Oxygen Therapy: No (on 2 L of O2 on floor) - Cardiovascular System Hx Hypertension: Yes (170s/110s, not on meds) - Central Nervous System Hx Psychiatric Problems: No - Gastrointestinal Hx Gastroesophageal Reflux Disease: (food related) - Endocrine Hx End Stage Renal Disease: No - Other Systems Hx Cancer: No
[2016-12-08] MEDS ORDERED: LIDOCAINE VISCOUS 2% PO ONE ×2 (10:25→10:27)
[2016-12-08] MEDS ORDERED: VERSED ONE (10:44)
[2016-12-08] MEDS ORDERED: SUBLIMAZE ONE (10:45)
[2016-12-08] MEDS ORDERED: DIPRIVAN 10 MG/ML IV ONE (10:45)
[2016-12-08] MEDS ORDERED: XYLOCAINE 1% 20 mL INFILTRATI ONE ×3 (11:05→11:08)
[2016-12-08] MEDS ORDERED: PROVENTIL IH ONE (11:45)
--- NOTE | 2016-12-08 11:50 | Anesthesia Day of Surgery ---
Anesthesia Day of Surgery - Day of Surgery Patient Examined: Yes Patient H&P Reviewed: Yes Patient is NPO: Yes
--- NOTE | 2016-12-08 11:50 | Progress Note ---
Assessment and Plan Dyspnea with crackles post bronch. could be related to BAL but crackles suspecious for CHF. HBP. Improved, resonably controlled through procedure Positive PPD. Patient was placed on isolation at this point. He recently may have migrated from [facility], denies any prior TB contacts but history is very sketchy at this point. No prior PPD but he is not sure when I ask him about BCG Right upper lobe pneumonia. On antibiotics. Bronchiectasis . Cystic bronchiectatic changes affecting the left upper lobe and left lower lobe areas Lingular lobe stenosis.Incidental.Likely post-inflammatory Spiculated lesion left lower lobe-[address] scan recommendations regarding follow-up in 6 months Recommendations Lasix IV stat Albuterol neb Continue oxygen support and monitor at PACU To floor once improved CCT 31 min Subjective Date of service: 12/08/16 Principal diagnosis: pneumonia, bronchiectasis, spiculated lesion left lower lobe Interval history: No SOB but coughing Objective Vital Signs - 12hr 12/08/16 12/08/16 12/08/16 03:08 08:00 08:10 Temperature 98.9 F Pulse Rate Pulse Rate [ 104 H Left Radial] Pulse Rate [ 104 H 105 H Posterior Left Throughout] Pulse Rate [ 98 H Right Radial] Respiratory 18 18 Rate Respiratory 18 Rate [Posterior Left Throughout] Blood Pressure Blood Pressure 162/91 [Right Arm] O2 Sat by Pulse 96 97 Oximetry 12/08/16 12/08/16 09:03 09:32 Temperature Pulse Rate 98 H Pulse Rate [ Left Radial] Pulse Rate [ Posterior Left Throughout] Pulse Rate [ Right Radial] Respiratory Rate Respiratory Rate [Posterior Left Throughout] Blood Pressure 162/91 Blood Pressure [Right Arm] O2 Sat by Pulse 97 Oximetry Constitutional: alert, other (mild breathing difficulty) Eyes: non-icteric ENT: oropharynx moist Neck: supple, no lymphadenopathy, no JVD Effort: mildly labored Ascultation: Bilateral: clear, rales (lower half both head) Percussion: Bilateral: not dull Tactile fremitus: Bilateral: normal Cardiovascular: regular rate and rhythm Gastrointestinal: normoactive bowel sounds Extremities: no cyanosis, no edema, pink and warm, pulses normal Neurologic: other (responsive and awake,follows commands) CBC and BMP: 12/08/16 08:12 12/08/16 08:12 ABG, PT/INR, D-dimer: PT/INR, D-dimer PT 14.1 Sec. (12.2-14.9) 12/04/16 15:46 INR 1.10 (0.87-1.13) 12/04/16 15:46 Abnormal lab findings: Abnormal Labs 12/01/16 12/02/16 12/03/16 18:59 08:13 05:31 WBC 22.4 H 23.9 H Hgb RDW Plt Count 118 L 134 L Lymphocytes % (Manual) 5.0 L Seg Neutrophils # Man 12.3 H Lymphocytes # (Manual) 1.1 L Monocytes # (Manual) 1.1 H APTT Potassium BUN Creatinine Glucose POC Glucose 187 H 12/03/16 12/04/16 12/06/16 05:31 15:46 07:46 WBC Hgb RDW 15.6 H Plt Count Lymphocytes % (Manual) Seg Neutrophils # Man Lymphocytes # (Manual) Monocytes # (Manual) APTT 36.8 H Potassium 3.4 L BUN 28 H Creatinine 1.6 H Glucose 118 H POC Glucose 12/07/16 12/08/16 12/08/16 06:45 08:12 08:12 WBC 11.9 H Hgb 11.6 L RDW 15.3 H 15.4 H Plt Count Lymphocytes % (Manual) Seg Neutrophils # Man Lymphocytes # (Manual) Monocytes # (Manual) APTT Potassium BUN Creatinine Glucose 74 L POC Glucose
--- NOTE | 2016-12-08 12:03 | Procedure Note ---
Date of procedure: 12/08/16 Pre-op diagnosis: pneumonia, bronchiectasis Post-op diagnosis: other (pneumonia, bronchiectasis with severe bronchitis, mild stenosis of lingular bronchus) Procedure: The patient was taken to the bronchoscopy suite and timeout was called. Initial topical anesthetic with lidocaine nasally was given. After IV sedation initiated about anesthesia, the scope was gently introduced to the right nares and the lower larynx and subglottic area was reviewed. Epiglottis and vocal cords were normal. Vocal cords with normal mobility. After an additional topical anesthetic, is about 10 mL lidocaine was given at this point, the scope was introduced into the trachea. There was diffuse mucosal inflammation throughout with evidence of clear mucus secretions. The main sunshine was noted to be inflamed at but sharp and midline. We then inspected right main right upper lobe, right middle lobe and right lower lobe segmental and subsegmental airways. There were clear secretions to all the airways with moderate to severe mucosal inflammation. No endobronchial lesions noted. All airways open. We then inspected the left main, left upper lobe, lingular and left lower lobe segmental and subsegmental airways. Diffuse inflammation was noted throughout. There was evidence of bronchial stenosis of the lingular segment, approximately 50% of normal lumen. No obvious endobronchial lesions consistent with prior inflammatory process. We then performed BAL of the right upper lobe for culture and cytology followed by bronchial brushings. Procedure was cut short at this point, due to patient showing evidence of increased respiratory rate, although oximetry was noted to be normal for the procedure and also blood pressure. Complications: None Sample: BAL for culture right upper lobe, washings for cytology right upper lobe , Brushings for cytology right upper lobe EBL: None Postprocedure recommendations: Monitor oximetry and blood pressure Continue nebs Review BAL for AFB ,fungal and bacterial cultures Anesthesia: MAC Surgeon: TANA BUSH Estimated blood loss: none Pathology: list Specimen disposition: to lab Condition: stable Disposition: PACU
[2016-12-08] MEDS ORDERED: LASIX IV ONE ×2 (12:30→18:18)
--- NOTE | 2016-12-08 16:13 | Progress Note ---
Assessment and Plan Patient is 61-year-old man history of hypertension, asthma and GERD who presents with shortness of breath and productive cough. Chest x-ray shows right upper lobe pneumonia, white blood cell count was 20.5. Blood glucose was 227, creatinine 1.7. Pneumonia right upper lobe: - suspected aspiration on admission - Treat with antibiotics, blood culture negative, added renal dose zosyn - PPD positive, placed on respiratory isolation - s/p Bronch today, wait for further cx result, HIV negative Sepsis due to pneumonia present on admission: - Treat with antibiotics, Acute renal failure, vasomotor nephropathy: - improved with IV fluids, HTN, accelerated - placed on BP meds, slightly improved today Hyperglycemia, Checked A1c==>5.8 unlikely DM, - so hyperglycemia due to pre-dm vs stress reaction, on diabetic diet and sliding scale insulin DVT prophylaxis: SCDs and subcutaneous heparin Full code Subjective Date of service: 12/08/16 Principal diagnosis: pneumonia, bronchiectasis, spiculated lesion left lower lobe Interval history: Patient seen and examined. Follow up on shortness breath and right-sided chest pain. He is on 2 L oxygen. Shortness breath is better. He denies chest pain. s/p BAL today. Objective - Exam Narrative Exam: GEN: WDWN, NAD, AWAKE, ALERT, ORIENTATED x 3 HEENT: NCAT, PERRL, EOMI, OP CLEAR NECK: SUPPLE, NO THYROMEGALY, NO JVD, NO LAD CVS: RRR, NORMAL S1S2 LUNGS/CHEST: Coarse breath sounds were right upper lung, NORMAL CHEST EXPANSION B, GOOD AIR ENTRY B ABD: SOFT, diffuse tenderness, distended, GBS, NO REBOUND OR GUARDING EXT/SKIN: NO SIGNIFICANT EDEMA OR RASH MSK: FROM X 4 EXTREMITIES NEURO: CN 2-12 GROSSLY INTACT, NO FOCAL DEFICITS PSY: CALM - Constitutional Vitals: Vital Signs - 12hr 12/08/16 12/08/16 12/08/16 08:00 08:10 09:03 Temperature 98.9 F Pulse Rate Pulse Rate [ 104 H 105 H Posterior Left Throughout] Pulse Rate [ 98 H Right Radial] Respiratory 18 Rate Respiratory 18 Rate [Posterior Left Throughout] Blood Pressure Blood Pressure 162/91 [Right Arm] O2 Sat by Pulse 97 97 Oximetry 12/08/16 12/08/16 12/08/16 09:32 13:24 15:06 Temperature 98.7 F 97.8 F Pulse Rate 98 H Pulse Rate [ Posterior Left Throughout] Pulse Rate [ 100 H 91 H Right Radial] Respiratory 18 18 Rate Respiratory Rate [Posterior Left Throughout] Blood Pressure 162/91 Blood Pressure 120/84 114/77 [Right Arm] O2 Sat by Pulse 100 100 Oximetry - Labs CBC & Chem 7: 12/08/16 08:12 12/08/16 08:12 Labs: Abnormal lab results 12/08/16 12/08/16 Range/Units 08:12 08:12 WBC 11.9 H (4.5-11.0) K/mm3 RDW 15.4 H (13.2-15.2) % Glucose 74 L (75-100) mg/dL
[2016-12-08] MEDS: PROTONIX PO SCH (17:40)
[2016-12-08] MEDS: ZITHROMAX PO SCH (17:40)
[2016-12-08] MEDS: NACL 0.9% 1000 ML 1,000 ML IV SCH (21:59)
[2016-12-09] MEDS: ZOSYN/NS 4.5GM/100ML 4.5 GM/100 ML VIAL IV SCH ×3 (05:54→22:00)
--- NOTE | 2016-12-09 08:40 | Progress Note ---
Subjective Principal diagnosis: pneumonia, bronchiectasis, spiculated lesion left lower lobe Interval history: still with pain on rt feels slightly better Objective Vital Signs - 12hr 12/08/16 12/08/16 22:02 23:00 Temperature 98.2 F Pulse Rate 89 Pulse Rate [ 93 H Right Radial] Respiratory 20 Rate Blood Pressure 121/81 Blood Pressure 123/80 [Right Arm] O2 Sat by Pulse 98 Oximetry Constitutional: alert, other (mild breathing difficulty) Eyes: non-icteric ENT: oropharynx moist Neck: supple, no lymphadenopathy, no JVD Effort: mildly labored Ascultation: Right: wheezes (upper lobe), Bilateral: rales (lower half both head) Percussion: Bilateral: not dull Tactile fremitus: Bilateral: normal Cardiovascular: regular rate and rhythm Gastrointestinal: normoactive bowel sounds Extremities: no cyanosis, no edema, pink and warm, pulses normal Neurologic: other (responsive and awake,follows commands) CBC and BMP: 12/08/16 08:12 12/08/16 08:12 ABG, PT/INR, D-dimer: PT/INR, D-dimer PT 14.1 Sec. (12.2-14.9) 12/04/16 15:46 INR 1.10 (0.87-1.13) 12/04/16 15:46 Abnormal lab findings: Abnormal Labs 12/01/16 12/02/16 12/03/16 18:59 08:13 05:31 WBC 22.4 H 23.9 H Hgb RDW Plt Count 118 L 134 L Lymphocytes % (Manual) 5.0 L Seg Neutrophils # Man 12.3 H Lymphocytes # (Manual) 1.1 L Monocytes # (Manual) 1.1 H APTT Potassium BUN Creatinine Glucose POC Glucose 187 H 12/03/16 12/04/16 12/06/16 05:31 15:46 07:46 WBC Hgb RDW 15.6 H Plt Count Lymphocytes % (Manual) Seg Neutrophils # Man Lymphocytes # (Manual) Monocytes # (Manual) APTT 36.8 H Potassium 3.4 L BUN 28 H Creatinine 1.6 H Glucose 118 H POC Glucose 12/07/16 12/08/16 12/08/16 06:45 08:12 08:12 WBC 11.9 H Hgb 11.6 L RDW 15.3 H 15.4 H Plt Count Lymphocytes % (Manual) Seg Neutrophils # Man Lymphocytes # (Manual) Monocytes # (Manual) APTT Potassium BUN Creatinine Glucose 74 L POC Glucose
[2016-12-09] MEDS: XOPENEX IH SCH ×3 (09:28→20:15)
[2016-12-09] MEDS: ATROVENT IH SCH ×3 (09:28→20:15)
[2016-12-09] MEDS: ZITHROMAX PO SCH (10:38)
[2016-12-09] MEDS: COREG PO SCH ×2 (10:38→22:00)
[2016-12-09] MEDS: NORVASC PO SCH (10:38)
[2016-12-09] MEDS: PROTONIX PO SCH (10:38)
--- NOTE | 2016-12-09 12:36 | Consultation ---
History of Present Illness - Reason for Consult Consult date: 12/09/16 RUL Pneumonia Requesting physician: PAU DE LA VEGA - History of Present Illness Mr. Bueno is a 61-year-old man with a history of COPD who presented with worsening shortness of breath, cough productive of yellow-green sputum, and subjective fever. Chest radiograph showed a RUL consolidation, which was confirmed by follow-up CT chest imaging. He has been receiving Azithromycin and Zosyn empirically. He says his cough is nearly resolved and is no longer productive. He denies unintentional weight loss, sweats or hemoptysis. He is originally from [facility] and recalls receiving a BCG vaccination as a child. He has no known TB contacts, but works at [employer] and is exposed to travelers from all over the world. A PPD was placed and is reactive at 20mm. An assay of IGR has, also, been requested. Bronchoscopy was performed and BAL bacterial and fungal cultures are without growth to date. HIV screening is negative. ID consultation is requested for additional work-up and treatment recommendations. Past History Past Medical History: GERD, hypertension Past Surgical History: No surgical history, Other (reviewed) Social history: single. denies: smoking, alcohol abuse, prescription drug abuse Family history: diabetes, hypertension Medications and Allergies Allergies Allergy/AdvReac Type Severity Reaction Status Date / Time No Known Allergies Allergy Verified 03/07/13 08:14 Home Medications Medication Instructions Recorded Confirmed Last Taken Type No Known Home Medications [No 12/01/16 12/01/16 Unknown History Reported Home Medications] Active Meds: Active Medications Acetaminophen (Tylenol) 650 mg PO Q6H PRN PRN Reason: Non Cardiac Pain or Temp>100.5 Last Admin: 12/03/16 11:29 Dose: 650 mg Al Hydrox/Mg Hydrox/Simethicone (Alum-Mag Hydrox-Simeth [id number]/5ml) 30 ml PO Q4H PRN PRN Reason: Indigestion Last Admin: 12/03/16 15:33 Dose: 30 ml Amlodipine Besylate (Norvasc) 10 mg PO QDAY RADHA Last Admin: 12/09/16 10:38 Dose: 10 mg Azithromycin (Zithromax) 500 mg PO QDAY RADHA Last Admin: 12/09/16 10:38 Dose: 500 mg Bisacodyl (Dulcolax) 10 mg [place] QDAY PRN PRN Reason: Constipation Carvedilol (Coreg) 6.25 mg PO BID [facility] Last Admin: 12/09/16 10:38 Dose: 6.25 mg Piperacillin Sod/Tazobactam Sod (Zosyn/Ns 4.5gm/100ml) 4.5 gm in 100 mls @ 200 mls/hr IV Q8HR RADHA PRN Reason: Protocol Last Admin: 12/09/16 05:54 Dose: 200 mls/hr Sodium Chloride (Nacl 0.9% 1000 Ml) 1,000 mls @ 50 mls/hr IV DIRECT [facility] Last Admin: 12/08/16 21:59 Dose: 50 mls/hr Ipratropium [place] (Atrovent) 0.5 mg IH TIDRT [facility] Last Admin: 12/09/16 09:28 Dose: 0.5 mg Labetalol HCl (Normodyne) 10 mg IV Q2H PRN PRN Reason: Blood Pressure Last Admin: 12/07/16 09:57 Dose: 10 mg Levalbuterol HCl (Xopenex) 1.25 mg IH TID [facility] Last Admin: 12/09/16 09:28 Dose: 1.25 mg Pantoprazole Sodium (Protonix) 40 mg PO QDAY [facility] Last Admin: 12/09/16 10:38 Dose: 40 mg Polyethylene Glycol (Miralax 3350) 17 gm PO QDAY PRN PRN Reason: Constipation Last Admin: 12/07/16 19:20 Dose: 17 gm Review of Systems All systems: negative Constitutional: no weight loss, no fever, no chills, no sweats Ears, nose, mouth and throat: epistaxis Cardiovascular: no chest pain Respiratory: cough with sputum, dyspnea on exertion, no hemoptysis Gastrointestinal: no nausea, no vomiting, no diarrhea Genitourinary Male: no dysuria, no hematuria Integumentary: no rash, no pruritis Hematologic/Lymphatic: no lymphadenopathy Physical Examination - Constitutional Vitals: Vital Signs Temp Pulse Resp BP Pulse Ox 98.5 F 100 H 20 158/88 99 12/09/16 07:00 12/09/16 09:38 12/09/16 09:38 12/09/16 10:38 12/09/16 09:28 Temperature -Last 24 Hours Temperature 98.5 F Temperature 98.2 F Temperature 97.8 F Temperature 98.7 F General appearance: Present: no acute distress, well-nourished - EENT Eyes: Absent: scleral icterus, conjunctival injection - Neck Neck: Present: supple - Respiratory Respiratory effort: normal Respiratory: bilateral: CTA, negative: rales, rhonchi, wheezing - Cardiovascular Rhythm: regular Heart Sounds: Present: S1 & S2 - Extremities Extremities: No edema - Abdominal General gastrointestinal: Present: soft, non-distended - Integumentary Integumentary: Absent: jaundice, rash - Psychiatric Psychiatric: appropriate mood/affect - Neurologic Neurologic: no focal deficits, moves all extremities Results - Labs CBC & Chem 7: 12/08/16 08:12 12/08/16 08:12 Labs: Microbiology 12/08/16 13:27 Bronchoalveolar Lavage - Right Upper Lobe Respiratory Culture - Preliminary 12/01/16 12:50 Peripheral/Venous Blood Culture - Final NO GROWTH AFTER 5 DAYS 12/01/16 13:16 Peripheral/Venous Blood Culture - Final NO GROWTH AFTER 5 DAYS - Imaging and Cardiology Chest x-ray: report reviewed CT scan - chest: report reviewed Assessment and Plan - Patient Problems (1) Community acquired pneumonia Current Visit: Yes Status: Acute Plan to address problem: Continue current antimicrobial therapy to complete a 5-7 day course. Await further results of BAL culture. Patient reports significant clinical improvement on this regimen. (2) Latent tuberculosis infection Current Visit: Yes Status: Acute Plan to address problem: Patient has minimal clinical symptoms that correlate with active pulmonary tuberculosis. Nonetheless, await results of AFB sputum studies from bronchoscopy. Patient has a positive TST to 20mm, works in a high-risk environment and is [place]prevalence [place]. Await result of IGRA. However, even if this is negative, recommend 9-month course of INH/B6. I have already discussed this potential therapy with the patient. Will initiate treatment of latent TB infection IF/ WHEN sputum AFB studies are negative.
--- NOTE | 2016-12-09 15:39 | Progress Note ---
Assessment and Plan Patient is 61-year-old man history of hypertension, asthma and GERD who presents with shortness of breath and productive cough. Chest x-ray shows right upper lobe pneumonia, white blood cell count was 20.5. Blood glucose was 227, creatinine 1.7. Pneumonia right upper lobe: - suspected aspiration on admission - Treat with antibiotics, blood culture negative, added renal dose zosyn - PPD positive, placed on respiratory isolation - s/p Bronch on 12/08/16, wait for further cx result, HIV negative - consulted ID, Sputum AFB and quantiferon assay pending Sepsis due to pneumonia present on admission: - Treat with antibiotics, Acute renal failure, vasomotor nephropathy: - improved with IV fluids, HTN, accelerated - placed on BP meds, slightly improved today Hyperglycemia, Checked A1c==>5.8 unlikely DM, - so hyperglycemia due to pre-dm vs stress reaction, on diabetic diet and sliding scale insulin DVT prophylaxis: SCDs and subcutaneous heparin Full code Subjective Date of service: 12/09/16 Principal diagnosis: pneumonia, bronchiectasis, spiculated lesion left lower lobe Interval history: Patient seen and examined. Follow up on shortness breath and right-sided chest pain. He is on 2 L oxygen. Shortness breath is better. He denies chest pain. s/p BAL on 12/08/16. Objective - Exam Narrative Exam: GEN: WDWN, NAD, AWAKE, ALERT, ORIENTATED x 3 HEENT: NCAT, PERRL, EOMI, OP CLEAR NECK: SUPPLE, NO THYROMEGALY, NO JVD, NO LAD CVS: RRR, NORMAL S1S2 LUNGS/CHEST: Coarse breath sounds were right upper lung, NORMAL CHEST EXPANSION B, GOOD AIR ENTRY B ABD: SOFT, diffuse tenderness, distended, GBS, NO REBOUND OR GUARDING EXT/SKIN: NO SIGNIFICANT EDEMA OR RASH MSK: FROM X 4 EXTREMITIES NEURO: CN 2-12 GROSSLY INTACT, NO FOCAL DEFICITS PSY: CALM - Constitutional Vitals: Vital Signs - 12hr 12/09/16 12/09/16 12/09/16 07:00 09:28 09:38 Temperature 98.5 F Pulse Rate [ 92 H 100 H Anterior Bilateral Throughout] Pulse Rate [ 82 From Monitor] Respiratory 18 Rate Respiratory 18 20 Rate [Anterior Bilateral Throughout] Blood Pressure Blood Pressure 135/83 [Right Arm] O2 Sat by Pulse 97 99 Oximetry 12/09/16 12/09/16 12/09/16 10:38 13:37 13:47 Temperature Pulse Rate [ 85 87 Anterior Bilateral Throughout] Pulse Rate [ From Monitor] Respiratory Rate Respiratory 20 20 Rate [Anterior Bilateral Throughout] Blood Pressure 158/88 Blood Pressure [Right Arm] O2 Sat by Pulse Oximetry - Labs CBC & Chem 7: 12/08/16 08:12 12/08/16 08:12
[2016-12-10] MEDS: ZOSYN/NS 4.5GM/100ML 4.5 GM/100 ML VIAL IV SCH ×3 (06:30→23:15)
[2016-12-10] MEDS: ATROVENT IH SCH ×2 (07:53→16:37)
[2016-12-10] MEDS: XOPENEX IH SCH ×2 (07:53→16:37)
[2016-12-10] MEDS: COREG PO SCH ×2 (10:57→23:17)
[2016-12-10] MEDS: ZITHROMAX PO SCH (10:58)
[2016-12-10] MEDS: NORVASC PO SCH (10:58)
[2016-12-10] MEDS: PROTONIX PO SCH (10:58)
--- NOTE | 2016-12-10 11:33 | Progress Note ---
Assessment and Plan HBP. Improved, resonably controlled through procedure Positive PPD. 20 mm per final report. Right upper lobe pneumonia. On antibiotics. Bronchiectasis . Cystic bronchiectatic changes affecting the left upper lobe and left lower lobe areas Lingular lobe stenosis.Incidental.Likely post-inflammatory Spiculated lesion left lower lobe-[address] scan recommendations regarding follow-up in 6 months Recommendations Complete ABX Agree with ID comments regarding TX for latent TB ( if BAL AFB is negative) Subjective Date of service: 12/10/16 Principal diagnosis: pneumonia, bronchiectasis, spiculated lesion left lower lobe Interval history: Sporadic cough no chest complains Objective Vital Signs - 12hr 12/10/16 12/10/16 12/10/16 03:00 07:20 07:30 Temperature Pulse Rate [ Left Radial] Pulse Rate [ 75 76 Posterior Left Throughout] Respiratory Rate Respiratory 18 18 Rate [Posterior Left Throughout] Respiratory 18 Rate [Right Chest] Blood Pressure Blood Pressure [Left Arm] O2 Sat by Pulse Oximetry 12/10/16 12/10/16 12/10/16 08:15 10:00 10:57 Temperature 98.6 F Pulse Rate [ 74 Left Radial] Pulse Rate [ Posterior Left Throughout] Respiratory 22 Rate Respiratory Rate [Posterior Left Throughout] Respiratory Rate [Right Chest] Blood Pressure 159/92 Blood Pressure 159/92 [Left Arm] O2 Sat by Pulse 95 95 Oximetry 12/10/16 10:58 Temperature Pulse Rate [ Left Radial] Pulse Rate [ Posterior Left Throughout] Respiratory Rate Respiratory Rate [Posterior Left Throughout] Respiratory Rate [Right Chest] Blood Pressure 159/92 Blood Pressure [Left Arm] O2 Sat by Pulse Oximetry Constitutional: no acute distress, alert Eyes: non-icteric ENT: oropharynx moist Neck: supple, no lymphadenopathy, no JVD Effort: mildly labored Ascultation: Right: rales (sporadic), Bilateral: clear Percussion: Bilateral: not dull Tactile fremitus: Bilateral: normal Cardiovascular: regular rate and rhythm Gastrointestinal: normoactive bowel sounds Extremities: no cyanosis, no edema, pink and warm, pulses normal CBC and BMP: 12/08/16 08:12 12/08/16 08:12 ABG, PT/INR, D-dimer: PT/INR, D-dimer PT 14.1 Sec. (12.2-14.9) 12/04/16 15:46 INR 1.10 (0.87-1.13) 12/04/16 15:46 Abnormal lab findings: Abnormal Labs 12/01/16 12/02/16 12/03/16 18:59 08:13 05:31 WBC 22.4 H 23.9 H Hgb RDW Plt Count 118 L 134 L Lymphocytes % (Manual) 5.0 L Seg Neutrophils # Man 12.3 H Lymphocytes # (Manual) 1.1 L Monocytes # (Manual) 1.1 H APTT Potassium BUN Creatinine Glucose POC Glucose 187 H 12/03/16 12/04/16 12/06/16 05:31 15:46 07:46 WBC Hgb RDW 15.6 H Plt Count Lymphocytes % (Manual) Seg Neutrophils # Man Lymphocytes # (Manual) Monocytes # (Manual) APTT 36.8 H Potassium 3.4 L BUN 28 H Creatinine 1.6 H Glucose 118 H POC Glucose 12/07/16 12/08/16 12/08/16 06:45 08:12 08:12 WBC 11.9 H Hgb 11.6 L RDW 15.3 H 15.4 H Plt Count Lymphocytes % (Manual) Seg Neutrophils # Man Lymphocytes # (Manual) Monocytes # (Manual) APTT Potassium BUN Creatinine Glucose 74 L POC Glucose
--- NOTE | 2016-12-10 12:41 | Progress Note ---
Subjective Date of service: 12/10/16 Principal diagnosis: pneumonia, bronchiectasis, spiculated lesion left lower lobe Interval history: Assessment and plan: Pneumonia right upper lobe: - suspected aspiration on admission - Treat with antibiotics, blood culture negative, added renal dose zosyn - PPD positive, placed on respiratory isolation - s/p Bronch on 12/08/16, wait for further cx result, HIV negative - consulted ID, Sputum AFB and quantiferon assay pending Sepsis due to pneumonia present on admission: - Treat with antibiotics, Acute renal failure, vasomotor nephropathy: - improved with IV fluids, HTN, accelerated - Blood pressure readings reviewed Continue amlodipine and carvedilol Will add losartan as his renal function is normal DVT prophylaxis: SCDs and subcutaneous heparin Subjective: Patient is alert and oriented He offers no specific complaints He denies any chest pain shortness of breath or cough Denies fever or chills Objective - Constitutional Vitals: Vital Signs - 12hr 12/10/16 12/10/16 12/10/16 03:00 07:20 07:30 Temperature Pulse Rate [ Left Radial] Pulse Rate [ 75 76 Posterior Left Throughout] Respiratory Rate Respiratory 18 18 Rate [Posterior Left Throughout] Respiratory 18 Rate [Right Chest] Blood Pressure Blood Pressure [Left Arm] O2 Sat by Pulse Oximetry 12/10/16 12/10/16 12/10/16 08:15 10:00 10:57 Temperature 98.6 F Pulse Rate [ 74 Left Radial] Pulse Rate [ Posterior Left Throughout] Respiratory 22 Rate Respiratory Rate [Posterior Left Throughout] Respiratory Rate [Right Chest] Blood Pressure 159/92 Blood Pressure 159/92 [Left Arm] O2 Sat by Pulse 95 95 Oximetry 12/10/16 10:58 Temperature Pulse Rate [ Left Radial] Pulse Rate [ Posterior Left Throughout] Respiratory Rate Respiratory Rate [Posterior Left Throughout] Respiratory Rate [Right Chest] Blood Pressure 159/92 Blood Pressure [Left Arm] O2 Sat by Pulse Oximetry General appearance: Present: no acute distress - EENT Eyes: PERRL, EOM intact ENT: hearing intact, clear oral mucosa - Neck Neck: supple, normal ROM, no masses or JVD - Respiratory Respiratory effort: normal Respiratory: bilateral: CTA - Cardiovascular Rhythm: regular Heart Sounds: Present: S1 & S2 Extremities: No edema - Gastrointestinal General gastrointestinal: Present: soft, non-tender. Absent: hepatomegaly, splenomegaly Rectal Exam: deferred - Integumentary Integumentary: clear - Musculoskeletal Musculoskeletal: strength equal bilaterally - Neurologic Neurologic: no focal deficits - Labs CBC & Chem 7: 12/08/16 08:12 12/08/16 08:12
--- NOTE | 2016-12-10 15:47 | Progress Note ---
Assessment and Plan - Patient Problems (1) Community acquired pneumonia Current Visit: Yes Status: Acute Plan to address problem: Continue Zosyn and Asithromycin to complete tomorrow's doses, total 5 days. Denies side effects of therapy, e.g rash or diarrhea. (2) Latent tuberculosis infection Current Visit: Yes Status: Acute Plan to address problem: 1. Await BAL AFB studies. 2. If NEGATIVE, will begin treatment of latent TB infection with INH/B6 for 9 months. 3. If POSITIVE, will presumptively begin treatment of active TB pending species identification. Patient's history of COPD also predisposes him to pulmonary MAC. Subjective Date of service: 12/10/16 Principal diagnosis: pneumonia, bronchiectasis, spiculated lesion left lower lobe Interval history: Remains afebrile. Awaiting final results of BAL studies. Objective - Exam Narrative Exam: watching a movie on his phone - Constitutional Vitals: Vital Signs Temp Pulse Resp BP Pulse Ox 98.7 F 80 20 117/70 97 12/10/16 15:41 12/10/16 15:41 12/10/16 15:41 12/10/16 15:41 12/10/16 15:41 Temperature -Last 24 Hours Temperature 98.7 F Temperature 98.7 F Temperature 98.6 F Temperature 98.7 F Temperature 99.1 F General appearance: Present: no acute distress - EENT Eyes: no scleral icterus, no conjunctival injection - Respiratory Respiratory effort: normal Respiratory: bilateral: CTA, negative: rales, wheezing - Cardiovascular Rhythm: regular Heart Sounds: Present: S1 & S2 Extremities: No edema - Gastrointestinal General gastrointestinal: Present: soft, non-distended - Integumentary Integumentary: no rash - Psychiatric Psychiatric: appropriate mood/affect - Labs CBC & Chem 7: 12/08/16 08:12 12/08/16 08:12 Labs: Microbiology 12/08/16 13:27 Bronchoalveolar Lavage - Right Upper Lobe Respiratory Culture - Preliminary NGTD; Fungal Culture pending; NEGATIVE malignant cells 12/01/16 12:50 Peripheral/Venous Blood Culture - Final NO GROWTH AFTER 5 DAYS 12/01/16 13:16 Peripheral/Venous Blood Culture - Final NO GROWTH AFTER 5 DAYS Active Medications Acetaminophen (Tylenol) 650 mg PO Q6H PRN PRN Reason: Non Cardiac Pain or Temp>100.5 Last Admin: 12/03/16 11:29 Dose: 650 mg Al Hydrox/Mg Hydrox/Simethicone (Alum-Mag Hydrox-Simeth [phone]/5ml) 30 ml PO Q4H PRN PRN Reason: Indigestion Last Admin: 12/03/16 15:33 Dose: 30 ml Amlodipine Besylate (Norvasc) 10 mg PO QDAY [facility] Last Admin: 12/10/16 10:58 Dose: 10 mg Azithromycin (Zithromax) 500 mg PO QDAY [facility] Last Admin: 12/10/16 10:58 Dose: 500 mg Bisacodyl (Dulcolax) 10 mg [place] QDAY PRN PRN Reason: Constipation Carvedilol (Coreg) 6.25 mg PO BID [facility] Last Admin: 12/10/16 10:57 Dose: 6.25 mg Piperacillin Sod/Tazobactam Sod (Zosyn/Ns 4.5gm/100ml) 4.5 gm in 100 mls @ 200 mls/hr IV Q8HR RADHA PRN Reason: Protocol Last Admin: 12/10/16 06:30 Dose: 200 mls/hr Sodium Chloride (Nacl 0.9% 1000 Ml) 1,000 mls @ 50 mls/hr IV DIRECT [facility] Last Admin: 12/08/16 21:59 Dose: 50 mls/hr Ipratropium [place] (Atrovent) 0.5 mg IH TIDRT [facility] Last Admin: 12/10/16 07:53 Dose: 0.5 mg Labetalol HCl (Normodyne) 10 mg IV Q2H PRN PRN Reason: Blood Pressure Last Admin: 12/07/16 09:57 Dose: 10 mg Levalbuterol HCl (Xopenex) 1.25 mg IH TID [facility] Last Admin: 12/10/16 07:53 Dose: 1.25 mg Losartan Potassium (Cozaar) 50 mg PO QDAY RADHA Pantoprazole Sodium (Protonix) 40 mg PO QDAY [facility] Last Admin: 12/10/16 10:58 Dose: 40 mg Polyethylene Glycol (Miralax 3350) 17 gm PO QDAY PRN PRN Reason: Constipation Last Admin: 12/07/16 19:20 Dose: 17 gm
[2016-12-10] MEDS: COZAAR PO SCH (18:06)
[2016-12-11] MEDS: ZOSYN/NS 4.5GM/100ML 4.5 GM/100 ML VIAL IV SCH ×3 (07:07→23:04)
[2016-12-11] MEDS: ATROVENT IH SCH ×6 (07:55→20:27)
[2016-12-11] MEDS: XOPENEX IH SCH ×6 (07:55→20:27)
[2016-12-11] MEDS: COREG PO SCH (09:26)
[2016-12-11] MEDS: NORVASC PO SCH (09:27)
[2016-12-11] MEDS: PROTONIX PO SCH (09:27)
[2016-12-11] MEDS: COZAAR PO SCH (09:27)
[2016-12-11] MEDS: ZITHROMAX PO SCH (09:27)
--- NOTE | 2016-12-11 11:09 | Progress Note ---
Assessment and Plan HBP. Needs long-term treatment and monitoring. History of hypertensive urgency per record Positive PPD. 20 mm per final report. Right upper lobe pneumonia. Completing antibiotics. Bronchiectasis . Cystic bronchiectatic changes affecting the left upper lobe and left lower lobe areas Lingular lobe stenosis.Incidental.Likely post-inflammatory Spiculated lesion left lower lobe-[address] scan recommendations regarding follow-up in 6 months Recommendations Complete ABX-I recommend 10 days Agree with ID comments regarding TX for latent TB ( if BAL AFB is negative) -If BAL if AFB positive, then standard drugs therapy for TB active should be initiated and review with primary culture in 6-8 weeks. Needs follow-up CT scan or PET scan as an outpatient. This can be done later on in the office, once BAL results are available. Subjective Date of service: 12/11/16 Principal diagnosis: pneumonia, bronchiectasis, spiculated lesion left lower lobe Interval history: Patient reports no fever. No respiratory complaints. Objective Vital Signs - 12hr 12/10/16 12/11/16 12/11/16 23:17 07:52 08:00 Temperature 98.5 F Pulse Rate 86 Pulse Rate [ 105 H Anterior Bilateral Throughout] Pulse Rate [ Anterior Right Throughout] Pulse Rate [ 105 H Right Radial] Respiratory 22 Rate Respiratory 20 Rate [Anterior Bilateral Throughout] Respiratory Rate [Anterior Right Throughout] Blood Pressure 120/72 Blood Pressure 138/88 [Right Arm] O2 Sat by Pulse 95 95 Oximetry 12/11/16 12/11/16 12/11/16 08:07 09:26 09:27 Temperature Pulse Rate 94 H 94 H Pulse Rate [ Anterior Bilateral Throughout] Pulse Rate [ 98 H Anterior Right Throughout] Pulse Rate [ Right Radial] Respiratory Rate Respiratory Rate [Anterior Bilateral Throughout] Respiratory 20 Rate [Anterior Right Throughout] Blood Pressure 144/96 144/96 Blood Pressure [Right Arm] O2 Sat by Pulse Oximetry Constitutional: no acute distress, alert Eyes: non-icteric ENT: oropharynx moist Neck: supple, no lymphadenopathy, no JVD Effort: mildly labored Ascultation: Right: rales (upper midlobe), Bilateral: clear Percussion: Bilateral: not dull Tactile fremitus: Bilateral: normal Cardiovascular: regular rate and rhythm Gastrointestinal: normoactive bowel sounds Extremities: no cyanosis, no edema, pink and warm, pulses normal Neurologic: normal mental status, non-focal exam, pupils equal and round, CN II- XII normal Psychiatric: mood appropriate, affect normal CBC and BMP: 12/08/16 08:12 12/08/16 08:12 ABG, PT/INR, D-dimer: PT/INR, D-dimer PT 14.1 Sec. (12.2-14.9) 12/04/16 15:46 INR 1.10 (0.87-1.13) 12/04/16 15:46 Abnormal lab findings: Abnormal Labs 12/01/16 12/02/16 12/03/16 18:59 08:13 05:31 WBC 22.4 H 23.9 H Hgb RDW Plt Count 118 L 134 L Lymphocytes % (Manual) 5.0 L Seg Neutrophils # Man 12.3 H Lymphocytes # (Manual) 1.1 L Monocytes # (Manual) 1.1 H APTT Potassium BUN Creatinine Glucose POC Glucose 187 H 12/03/16 12/04/16 12/06/16 05:31 15:46 07:46 WBC Hgb RDW 15.6 H Plt Count Lymphocytes % (Manual) Seg Neutrophils # Man Lymphocytes # (Manual) Monocytes # (Manual) APTT 36.8 H Potassium 3.4 L BUN 28 H Creatinine 1.6 H Glucose 118 H POC Glucose 12/07/16 12/08/16 12/08/16 06:45 08:12 08:12 WBC 11.9 H Hgb 11.6 L RDW 15.3 H 15.4 H Plt Count Lymphocytes % (Manual) Seg Neutrophils # Man Lymphocytes # (Manual) Monocytes # (Manual) APTT Potassium BUN Creatinine Glucose 74 L POC Glucose
[2016-12-11] MEDS: NACL 0.9% 1000 ML 1,000 ML IV SCH (14:58)
[2016-12-11 15:43] LABS: Hematocrit 36.4 % (35.5-45.6); Mean Corpuscular HGB Conc 33 % (32-34); Mean Corpuscular Hemoglobin 29 pg (28-32); Mean Corpuscular Volume 87 fl (84-94); Platelet Count 343 K/mm3 (140-440); Red Blood Count 4.17 M/mm3 (3.65-5.03); White Blood Count 8.5 K/mm3 (4.5-11.0)
[2016-12-11 15:48] LABS: Anion Gap 13 mmol/L; BUN/Creatinine Ratio 11.81; Blood Urea Nitrogen 13 mg/dL (9-20); Calcium 9.2 mg/dL (8.4-10.2); Carbon Dioxide 30 mmol/L (22-30); Glucose 104 mg/dL (75-100); Potassium 4.1 mmol/L (3.6-5.0); Sodium 141 mmol/L (137-145)
--- NOTE | 2016-12-11 17:36 | Progress Note ---
Subjective Date of service: 12/11/16 Principal diagnosis: pneumonia, bronchiectasis, spiculated lesion left lower lobe Interval history: All interdisciplinary note reviewed Assessment and plan: Pneumonia right upper lobe: - ID consult note reviewed and appreciated Sepsis due to pneumonia present on admission: - Continue present antibiotics, Acute renal failure: - improved with IV fluids, HTN, accelerated: Well-controlled - Blood pressure readings reviewed Continue amlodipine and carvedilol and losartan DVT prophylaxis: SCDs and subcutaneous heparin Subjective: Patient is alert and oriented He offers no specific complaints He denies any chest pain shortness of breath or cough Denies fever or chills Objective - Constitutional Vitals: Vital Signs - 12hr 12/11/16 12/11/16 12/11/16 07:52 08:00 08:07 Temperature 98.5 F Pulse Rate Pulse Rate [ 105 H Anterior Bilateral Throughout] Pulse Rate [ Anterior Left Throughout] Pulse Rate [ 98 H Anterior Right Throughout] Pulse Rate [ 105 H Right Radial] Respiratory 22 Rate Respiratory 20 Rate [Anterior Bilateral Throughout] Respiratory Rate [Anterior Left Throughout ] Respiratory 20 Rate [Anterior Right Throughout] Respiratory Rate [Right Chest] Blood Pressure Blood Pressure 138/88 [Right Arm] O2 Sat by Pulse 95 95 Oximetry 12/11/16 12/11/16 12/11/16 09:26 09:27 11:40 Temperature Pulse Rate 94 H 94 H Pulse Rate [ Anterior Bilateral Throughout] Pulse Rate [ Anterior Left Throughout] Pulse Rate [ Anterior Right Throughout] Pulse Rate [ Right Radial] Respiratory 20 Rate Respiratory Rate [Anterior Bilateral Throughout] Respiratory Rate [Anterior Left Throughout ] Respiratory Rate [Anterior Right Throughout] Respiratory 20 Rate [Right Chest] Blood Pressure 144/96 144/96 Blood Pressure [Right Arm] O2 Sat by Pulse Oximetry 12/11/16 12/11/16 12/11/16 14:00 14:13 15:02 Temperature 98.6 F Pulse Rate Pulse Rate [ Anterior Bilateral Throughout] Pulse Rate [ 88 92 H Anterior Left Throughout] Pulse Rate [ Anterior Right Throughout] Pulse Rate [ 76 Right Radial] Respiratory 18 Rate Respiratory Rate [Anterior Bilateral Throughout] Respiratory 20 20 Rate [Anterior Left Throughout ] Respiratory Rate [Anterior Right Throughout] Respiratory Rate [Right Chest] Blood Pressure Blood Pressure 125/77 [Right Arm] O2 Sat by Pulse 99 Oximetry General appearance: Present: no acute distress - EENT Eyes: PERRL, EOM intact ENT: hearing intact, clear oral mucosa - Neck Neck: supple, normal ROM, no masses or JVD - Respiratory Respiratory effort: normal Respiratory: bilateral: CTA - Cardiovascular Rhythm: regular Heart Sounds: Present: S1 & S2 Extremities: No edema - Gastrointestinal General gastrointestinal: Present: soft, non-tender. Absent: hepatomegaly, splenomegaly Rectal Exam: deferred - Integumentary Integumentary: clear - Musculoskeletal Musculoskeletal: strength equal bilaterally - Neurologic Neurologic: no focal deficits - Labs CBC & Chem 7: 12/11/16 14:52 12/11/16 14:52 Labs: Abnormal lab results 12/11/16 Range/Units 14:52 Glucose 104 H (75-100) mg/dL
[2016-12-12] MEDS: COREG PO SCH ×3 (00:57→22:16)
[2016-12-12] MEDS: ZOSYN/NS 4.5GM/100ML 4.5 GM/100 ML VIAL IV SCH ×2 (06:43→17:42)
[2016-12-12] MEDS: ATROVENT IH SCH ×3 (07:54→21:13)
[2016-12-12] MEDS: XOPENEX IH SCH ×3 (07:55→21:13)
--- NOTE | 2016-12-12 11:41 | Progress Note ---
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 Follow up ID recs 2. Results of Fungal culture still pending on BAL Thank you for this consult, will follow along with you. Subjective Date of service: 12/12/16 Principal diagnosis: pneumonia, bronchiectasis, spiculated lesion left lower lobe Interval history: No acute events. Remains on abx therapy. Objective Vital Signs - 12hr 12/12/16 12/12/16 12/12/16 00:57 03:00 07:49 Temperature Pulse Rate 82 Pulse Rate [ 67 Anterior Bilateral Throughout] Pulse Rate [ From Monitor] Pulse Rate [ 82 Radial] Respiratory 22 Rate Respiratory 20 Rate [Anterior Bilateral Throughout] Blood Pressure 133/76 Blood Pressure [Right Arm] O2 Sat by Pulse 98 99 Oximetry 12/12/16 12/12/16 07:57 08:08 Temperature 98.6 F Pulse Rate Pulse Rate [ 70 Anterior Bilateral Throughout] Pulse Rate [ 66 From Monitor] Pulse Rate [ Radial] Respiratory 20 Rate Respiratory 20 Rate [Anterior Bilateral Throughout] Blood Pressure Blood Pressure 142/92 [Right Arm] O2 Sat by Pulse 99 Oximetry Constitutional: no acute distress, alert Eyes: non-icteric ENT: oropharynx moist Neck: supple, no lymphadenopathy, no JVD Effort: mildly labored Ascultation: Right: wheezes (upper lobe), rales (upper midlobe), Bilateral: clear Percussion: Bilateral: not dull Tactile fremitus: Bilateral: normal Cardiovascular: regular rate and rhythm Gastrointestinal: normoactive bowel sounds Extremities: no cyanosis, no edema, pink and warm, pulses normal Neurologic: normal mental status, non-focal exam, pupils equal and round, CN II- XII normal Psychiatric: mood appropriate, affect normal CBC and BMP: 12/11/16 14:52 12/11/16 14:52 ABG, PT/INR, D-dimer: PT/INR, D-dimer PT 14.1 Sec. (12.2-14.9) 12/04/16 15:46 INR 1.10 (0.87-1.13) 12/04/16 15:46 Abnormal lab findings: Abnormal Labs 12/01/16 12/02/16 12/03/16 18:59 08:13 05:31 WBC 22.4 H 23.9 H Hgb RDW Plt Count 118 L 134 L Lymphocytes % (Manual) 5.0 L Seg Neutrophils # Man 12.3 H Lymphocytes # (Manual) 1.1 L Monocytes # (Manual) 1.1 H APTT Potassium BUN Creatinine Glucose POC Glucose 187 H TB (QFT) Gold In Tube 12/03/16 12/04/16 12/06/16 05:31 15:46 07:46 WBC Hgb RDW 15.6 H Plt Count Lymphocytes % (Manual) Seg Neutrophils # Man Lymphocytes # (Manual) Monocytes # (Manual) APTT 36.8 H Potassium 3.4 L BUN 28 H Creatinine 1.6 H Glucose 118 H POC Glucose TB (QFT) Gold In Tube 12/07/16 12/08/16 12/08/16 06:45 08:12 08:12 WBC 11.9 H Hgb 11.6 L RDW 15.3 H 15.4 H Plt Count Lymphocytes % (Manual) Seg Neutrophils # Man Lymphocytes # (Manual) Monocytes # (Manual) APTT Potassium BUN Creatinine Glucose 74 L POC Glucose TB (QFT) Gold In Tube 12/08/16 12/11/16 17:00 14:52 WBC Hgb RDW Plt Count Lymphocytes % (Manual) Seg Neutrophils # Man Lymphocytes # (Manual) Monocytes # (Manual) APTT Potassium BUN Creatinine Glucose 104 H POC Glucose TB (QFT) Gold In Tube Positive H
[2016-12-12] MEDS: ZITHROMAX PO SCH (11:54)
[2016-12-12] MEDS: COZAAR PO SCH (11:54)
[2016-12-12] MEDS: NORVASC PO SCH (11:55)
[2016-12-12] MEDS: PROTONIX PO SCH (11:56)
--- NOTE | 2016-12-12 14:01 | Progress Note ---
Assessment and Plan Patient is 61-year-old man history of hypertension, asthma and GERD who presents with shortness of breath and productive cough. Chest x-ray shows right upper lobe pneumonia, white blood cell count was 20.5. Blood glucose was 227, creatinine 1.7. Pneumonia right upper lobe: - suspected aspiration on admission - Treated with antibiotics, blood culture negative, discontinued antibody today - PPD positive, placed on respiratory isolation - s/p Bronch on 12/08/16, wait for further cx result, HIV negative - consulted ID, Postive quantiferon gold result, Sputum AFB assay pending Sepsis due to pneumonia present on admission: - Treated with antibiotics, Acute renal failure, vasomotor nephropathy: - improved with IV fluids, HTN, accelerated - placed on BP meds, better controlled Hyperglycemia, Checked A1c==>5.8 unlikely DM, - so hyperglycemia due to pre-dm vs stress reaction, on diabetic diet and sliding scale insulin Latent pulmonary tuberculosis - Postive quantiferon gold result. - Await result of AFB sputum studies to determine if treatment of latent TB or active TB is indicated. DVT prophylaxis: SCDs and subcutaneous heparin Full code Subjective Date of service: 12/12/16 Principal diagnosis: pneumonia, bronchiectasis, spiculated lesion left lower lobe Interval history: Patient seen and examined. Follow up on shortness breath and right-sided chest pain. He is on 2 L oxygen. Shortness breath is better. He denies chest pain. s/p BAL on 12/08/16. QuantiFERON test was positive, BAL studies still pending. Objective - Exam Narrative Exam: GEN: WDWN, NAD, AWAKE, ALERT, ORIENTATED x 3 HEENT: NCAT, PERRL, EOMI, OP CLEAR NECK: SUPPLE, NO THYROMEGALY, NO JVD, NO LAD CVS: RRR, NORMAL S1S2 LUNGS/CHEST: Coarse breath sounds were right upper lung, NORMAL CHEST EXPANSION B, GOOD AIR ENTRY B ABD: SOFT, diffuse tenderness, distended, GBS, NO REBOUND OR GUARDING EXT/SKIN: NO SIGNIFICANT EDEMA OR RASH MSK: FROM X 4 EXTREMITIES NEURO: CN 2-12 GROSSLY INTACT, NO FOCAL DEFICITS PSY: CALM - Constitutional Vitals: Vital Signs - 12hr 12/12/16 12/12/16 12/12/16 03:00 07:49 07:57 Temperature 98.6 F Pulse Rate [ 67 Anterior Bilateral Throughout] Pulse Rate [ 66 From Monitor] Pulse Rate [ 82 Radial] Respiratory 22 20 Rate Respiratory 20 Rate [Anterior Bilateral Throughout] Blood Pressure 142/92 [Right Arm] O2 Sat by Pulse 98 99 99 Oximetry 12/12/16 08:08 Temperature Pulse Rate [ 70 Anterior Bilateral Throughout] Pulse Rate [ From Monitor] Pulse Rate [ Radial] Respiratory Rate Respiratory 20 Rate [Anterior Bilateral Throughout] Blood Pressure [Right Arm] O2 Sat by Pulse Oximetry - Labs CBC & Chem 7: 12/11/16 14:52 12/11/16 14:52 Labs: Abnormal lab results 12/08/16 12/11/16 Range/Units 17:00 14:52 Glucose 104 H (75-100) mg/dL TB (QFT) Gold In Tube Positive H (Negative)
--- NOTE | 2016-12-12 16:29 | Progress Note ---
Assessment and Plan - Patient Problems (1) Community acquired pneumonia Current Visit: Yes Status: Acute Plan to address problem: 1. Patient has completed a sufficient duration of therapy. 2. Will discontinue Zosyn and Azithromycin. (2) Latent tuberculosis infection Current Visit: Yes Status: Acute Plan to address problem: 1. Postive quantiferon gold result. 2. Await result of AFB sputum studies to determine if treatment of latent TB or active TB is indicated. Subjective Date of service: 12/12/16 Principal diagnosis: pneumonia, bronchiectasis, spiculated lesion left lower lobe Interval history: Remains afebrile. No new clinical issues. Objective - Constitutional Vitals: Vital Signs Temp Pulse Resp BP Pulse Ox 98.6 F 66 20 142/92 99 12/12/16 07:57 12/12/16 14:13 12/12/16 14:13 12/12/16 07:57 12/12/16 07:57 Temperature -Last 24 Hours Temperature 98.6 F Temperature 97.7 F General appearance: Present: no acute distress, well-nourished - Neck Neck: supple - Respiratory Respiratory: bilateral: CTA, negative: rales, rhonchi - Cardiovascular Rhythm: regular Heart Sounds: Present: S1 & S2 Extremities: No edema - Gastrointestinal General gastrointestinal: Present: soft, non-distended - Integumentary Integumentary: no jaundice, no rash - Psychiatric Psychiatric: appropriate mood/affect - Labs CBC & Chem 7: 12/11/16 14:52 12/11/16 14:52 Labs: Abnormal lab results 12/08/16 Range/Units 17:00 TB (QFT) Gold In Tube Positive H (Negative) Microbiology 12/08/16 13:27 Bronchoalveolar Lavage - Right Upper Lobe Respiratory Culture - Final 12/01/16 12:50 Peripheral/Venous Blood Culture - Final NO GROWTH AFTER 5 DAYS 12/01/16 13:16 Peripheral/Venous Blood Culture - Final NO GROWTH AFTER 5 DAYS
[2016-12-12] MEDS: NACL 0.9% 1000 ML 1,000 ML IV SCH (22:17)
--- NOTE | 2016-12-13 08:14 | Progress Note ---
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 Will ask RT to wean FiO2 to off as tolerated. Can assess need for O2 prior to discharge with ambulatory test. Resting sats have been well. 2. Will continue to follow along and see as needed. Subjective Date of service: 12/13/16 Principal diagnosis: pneumonia, bronchiectasis, spiculated lesion left lower lobe Interval history: Fungal culture still not back yet. Sats have been good on 2 liters. Reviewed ID note from yesterday. Abx therapy has been stopped. Objective Vital Signs - 12hr 12/12/16 12/12/16 12/13/16 21:14 22:16 00:20 Temperature 98.6 F Pulse Rate 78 Pulse Rate [ 74 Anterior Left Throughout] Pulse Rate [ 75 From Monitor] Respiratory 16 Rate Respiratory 14 Rate [Anterior Left Throughout ] Blood Pressure 129/72 Blood Pressure 136/83 [Right Arm] O2 Sat by Pulse 95 Oximetry 12/13/16 07:00 Temperature 98.9 F Pulse Rate Pulse Rate [ Anterior Left Throughout] Pulse Rate [ 73 From Monitor] Respiratory 20 Rate Respiratory Rate [Anterior Left Throughout ] Blood Pressure Blood Pressure 149/87 [Right Arm] O2 Sat by Pulse 100 Oximetry Constitutional: no acute distress, alert Eyes: non-icteric ENT: oropharynx moist Neck: supple, no lymphadenopathy, no JVD Effort: mildly labored Ascultation: Right: wheezes (upper lobe), rales (upper midlobe), Bilateral: clear Percussion: Bilateral: not dull Tactile fremitus: Bilateral: normal Cardiovascular: regular rate and rhythm Gastrointestinal: normoactive bowel sounds Extremities: no cyanosis, no edema, pink and warm, pulses normal Neurologic: normal mental status, non-focal exam, pupils equal and round, CN II- XII normal Psychiatric: mood appropriate, affect normal CBC and BMP: 12/11/16 14:52 12/11/16 14:52 ABG, PT/INR, D-dimer: PT/INR, D-dimer PT 14.1 Sec. (12.2-14.9) 12/04/16 15:46 INR 1.10 (0.87-1.13) 12/04/16 15:46 Abnormal lab findings: Abnormal Labs 12/01/16 12/02/1617 18:59 08:13 05:31 WBC 22.4 H 23.9 H Hgb RDW Plt Count 118 L 134 L Lymphocytes % (Manual) 5.0 L Seg Neutrophils # Man 12.3 H Lymphocytes # (Manual) 1.1 L Monocytes # (Manual) 1.1 H APTT Potassium BUN Creatinine Glucose POC Glucose 187 H TB (QFT) Gold In Tube 12/03/16 12/04/16 12/06/16 05:31 15:46 07:46 WBC Hgb RDW 15.6 H Plt Count Lymphocytes % (Manual) Seg Neutrophils # Man Lymphocytes # (Manual) Monocytes # (Manual) APTT 36.8 H Potassium 3.4 L BUN 28 H Creatinine 1.6 H Glucose 118 H POC Glucose TB (QFT) Gold In Tube 12/07/16 12/08/16 12/08/16 06:45 08:12 08:12 WBC 11.9 H Hgb 11.6 L RDW 15.3 H 15.4 H Plt Count Lymphocytes % (Manual) Seg Neutrophils # Man Lymphocytes # (Manual) Monocytes # (Manual) APTT Potassium BUN Creatinine Glucose 74 L POC Glucose TB (QFT) Gold In Tube 12/08/16 12/11/16 17:00 14:52 WBC Hgb RDW Plt Count Lymphocytes % (Manual) Seg Neutrophils # Man Lymphocytes # (Manual) Monocytes # (Manual) APTT Potassium BUN Creatinine Glucose 104 H POC Glucose TB (QFT) Gold In Tube Positive H
[2016-12-13] MEDS: ATROVENT IH SCH ×3 (09:33→20:20)
[2016-12-13] MEDS: XOPENEX IH SCH ×3 (09:33→20:20)
[2016-12-13] MEDS: COZAAR PO SCH (11:36)
[2016-12-13] MEDS: COREG PO SCH ×2 (11:37→22:09)
[2016-12-13] MEDS: PROTONIX PO SCH (11:38)
[2016-12-13] MEDS: NORVASC PO SCH (11:38)
--- NOTE | 2016-12-13 12:31 | Progress Note ---
Assessment and Plan - Patient Problems (1) Latent tuberculosis infection Current Visit: Yes Status: Acute Plan to address problem: 1. Await sputum AFB result. 2. INH 300mg / vitamin B6 50mg daily IF NEGATIVE AFB studies. 3. RIPE/ vitamin B6 or other regimen IF POSITIVE AFB studies. 4. Increased rales over JAYNE field. Will repeat CXR given that antibiotics were stopped yesterday. Encourage patient to sit upright/ ambulate in room as tolerated. Subjective Date of service: 12/13/16 Principal diagnosis: pneumonia, bronchiectasis, spiculated lesion left lower lobe Interval history: Weaning supplemental oxygen. Awaiting AFB studies. Objective - Constitutional Vitals: Vital Signs Temp Pulse Resp BP Pulse Ox 98.9 F 76 16 140/80 98 12/13/16 07:00 12/13/16 11:38 12/13/16 09:31 12/13/16 11:38 12/13/16 09:46 Temperature -Last 24 Hours Temperature 98.9 F Temperature 98.6 F Temperature 97.5 F General appearance: Present: no acute distress (visitors present wearing N95 masks) - Neck Neck: supple - Respiratory Respiratory effort: normal Respiratory: right: rales (left upper lung field), negative: wheezing - Cardiovascular Rhythm: regular Heart Sounds: Present: S1 & S2 Extremities: No edema - Gastrointestinal General gastrointestinal: Present: soft, non-distended - Integumentary Integumentary: no jaundice, no rash - Labs CBC & Chem 7: 12/11/16 14:52 12/11/16 14:52 Labs: Microbiology 12/08/16 13:27 Bronchoalveolar Lavage - Right Upper Lobe Respiratory Culture - Final 12/08/16 13:27 Bronchoalveolar Lavage - Right Upper Lobe Fungal Culture - Preliminary 12/01/16 12:50 Peripheral/Venous Blood Culture - Final NO GROWTH AFTER 5 DAYS 12/01/16 13:16 Peripheral/Venous Blood Culture - Final NO GROWTH AFTER 5 DAYS
--- NOTE | 2016-12-13 13:50 | Progress Note ---
Assessment and Plan Assessment and plan: Patient is 61-year-old man history of hypertension, asthma and GERD who presents with shortness of breath and productive cough. Chest x-ray shows right upper lobe pneumonia, white blood cell count was 20.5. Blood glucose was 227, creatinine 1.7. Patient is febrile so I ordered Tylenol. CT chest showed pneumonia, bronchiectasis, spiculated lesion left lower lobe -Aspiration pneumonia right upper lobe: Treated with antibiotics, follow blood culture, added renal dose zosyn -Sepsis due to pneumonia present on admission: Treated with antibiotics, stopped IV fluids and gave a dose of lasix iv x 1 which really helped . -Acute renal failure, vasomotor nephropathy: Treated with IV fluids, was getting fluid overloaded, therefore stopped ivf -Hyperglycemia, Checked A1c==>5.8 unlikely DM, so hyperglycemia due to pre-dm vs stress reaction, start diabetic diet and ordered sliding scale insulin -DVT prophylaxis: SCDs and subcutaneous heparin Full code 12/03: wbc increasing and febrile, ordered CT chest chest without contrast due to renal dysfunction==>consulted pulmonology d/w Dr. Carr: I will order HIV, PPD, change levaquin to azithromycin, continue iv zosyn. No need for Tb isolation per Charge nurse Lan. I d/w patient and he is agreeable for testing. Bronchoscopy done PPD placed Monday left forearm. Read PPD as negative 12/06/16 Bronch done HIV negative Gold Interferon positive==> AFB pending to determine Latent vs Active Infection 12/13/16 per ID: "(1) Latent tuberculosis infection Current Visit: Yes Status: Acute Plan to address problem: 1. Await sputum AFB result. 2. INH 300mg / vitamin B6 50mg daily IF NEGATIVE AFB studies. 3. RIPE/ vitamin B6 or other regimen IF POSITIVE AFB studies." History Interval history: Patient seen and examined. Follow up on shortness breath. He is on 2 L oxygen. Which is new. Imaging, old records, testing, labs, nursing notes reviewed. Hospitalist Physical - Physical exam Narrative exam: GEN: WDWN, NAD, AWAKE, ALERT, ORIENTATED x 3 HEENT: NCAT, PERRL, EOMI, OP CLEAR NECK: SUPPLE, NO THYROMEGALY, NO JVD, NO LAD CVS: RRR, NORMAL S1S2 LUNGS/CHEST: Coarse breath sounds were right upper lung, NORMAL CHEST EXPANSION B, GOOD AIR ENTRY B ABD: SOFT, diffuse tenderness, distended, GBS, NO REBOUND OR GUARDING EXT/SKIN: NO SIGNIFICANT EDEMA OR RASH MSK: FROM X 4 EXTREMITIES NEURO: CN 2-12 GROSSLY INTACT, NO FOCAL DEFICITS PSY: CALM - Constitutional Vitals: Temp Pulse Resp BP Pulse Ox 98.9 F 76 16 140/80 98 12/13/16 07:00 12/13/16 11:38 12/13/16 09:31 12/13/16 11:38 12/13/16 09:46 General appearance: Present: no acute distress, well-nourished Results - Labs CBC & Chem 7: 12/11/16 14:52 12/11/16 14:52 Labs: Laboratory Last Values WBC 8.5 K/mm3 (4.5-11.0) 12/11/16 14:52 RBC 4.17 M/mm3 (3.65-5.03) 12/11/16 14:52 Hgb 12.0 gm/dl (11.8-15.2) 12/11/16 14:52 Hct 36.4 % (35.5-45.6) 12/11/16 14:52 MCV 87 fl (84-94) 12/11/16 14:52 MCH 29 pg (28-32) 12/11/16 14:52 MCHC 33 % (32-34) 12/11/16 14:52 RDW 15.0 % (13.2-15.2) 12/11/16 14:52 Plt Count 343 K/mm3 (140-440) 12/11/16 14:52 Add Manual Diff Complete 12/02/16 08:13 Total Counted 100 12/02/16 08:13 Seg Neutrophils % [employer] 12/01/16 10:10 Seg Neuts % (Manual) 55.0 % (40.0-70.0) 12/02/16 08:13 Band Neutrophils % 35.0 % 12/02/16 08:13 Lymphocytes % (Manual) 5.0 % (13.4-35.0) L 12/02/16 08:13 Reactive Lymphs % (Man) 0 % 12/02/16 08:13 Monocytes % (Manual) 5.0 % (0.0-7.3) 12/02/16 08:13 Eosinophils % (Manual) 0 % (0.0-4.3) 12/02/16 08:13 Basophils % (Manual) 0 % (0.0-1.8) 12/02/16 08:13 Metamyelocytes % 0 % 12/02/16 08:13 Myelocytes % 0 % 12/02/16 08:13 Promyelocytes % 0 % 12/02/16 08:13 Blast Cells % 0 % 12/02/16 08:13 Nucleated RBC % Not Reportable 12/02/16 08:13 Seg Neutrophils # Man 12.3 K/mm3 (1.8-7.7) H 12/02/16 08:13 Band Neutrophils # 7.8 K/mm3 12/02/16 08:13 Lymphocytes # (Manual) 1.1 K/mm3 (1.2-5.4) L 12/02/16 08:13 Abs React Lymphs (Man) 0.0 K/mm3 12/02/16 08:13 Monocytes # (Manual) 1.1 K/mm3 (0.0-0.8) H 12/02/16 08:13 Eosinophils # (Manual) 0.0 K/mm3 (0.0-0.4) 12/02/16 08:13 Basophils # (Manual) 0.0 K/mm3 (0.0-0.1) 12/02/16 08:13 Metamyelocytes # 0.0 K/mm3 12/02/16 08:13 Myelocytes # 0.0 K/mm3 12/02/16 08:13 Promyelocytes # 0.0 K/mm3 12/02/16 08:13 Blast Cells # 0.0 K/mm3 12/02/16 08:13 WBC Morphology Not Reportable 12/02/16 08:13 Hypersegmented Neuts Not Reportable 12/02/16 08:13 Hyposegmented Neuts Not Reportable 12/02/16 08:13 Hypogranular Neuts Not Reportable 12/02/16 08:13 Smudge Cells Not Reportable 12/02/16 08:13 Toxic Granulation Not Reportable 12/02/16 08:13 Toxic Vacuolation Not Reportable 12/02/16 08:13 Dohle Bodies Not Reportable 12/02/16 08:13 Pelger-Huet Anomaly Not Reportable 12/02/16 08:13 Darius Rods Not Reportable 12/02/16 08:13 Platelet Estimate Appears decreased 12/02/16 08:13 Clumped Platelets Not Reportable 12/02/16 08:13 Plt Clumps, EDTA Not Reportable 12/02/16 08:13 Large Platelets Not Reportable 12/02/16 08:13 Giant Platelets Not Reportable 12/02/16 08:13 Platelet Satelliting Not Reportable 12/02/16 08:13 Plt Morphology Comment Not Reportable 12/02/16 08:13 RBC Morphology Normal 12/02/16 08:13 Dimorphic RBCs Not Reportable 12/02/16 08:13 Polychromasia Not Reportable 12/02/16 08:13 Hypochromasia Not Reportable 12/02/16 08:13 Poikilocytosis Not Reportable 12/02/16 08:13 Anisocytosis Not Reportable 12/02/16 08:13 Microcytosis Not Reportable 12/02/16 08:13 Macrocytosis Not Reportable 12/02/16 08:13 Spherocytes Not Reportable 12/02/16 08:13 Pappenheimer Bodies Not Reportable 12/02/16 08:13 Sickle Cells Not Reportable 12/02/16 08:13 Target Cells Not Reportable 12/02/16 08:13 Tear Drop Cells Not Reportable 12/02/16 08:13 Ovalocytes Not Reportable 12/02/16 08:13 Helmet Cells Not Reportable 12/02/16 08:13 [place] Bodies Not Reportable 12/02/16 08:13 [place] Rings Not Reportable 12/02/16 08:13 [place] Cells Not Reportable 12/02/16 08:13 Bite Cells Not Reportable 12/02/16 08:13 Crenated Cell Not Reportable 12/02/16 08:13 Elliptocytes Not Reportable 12/02/16 08:13 Acanthocytes (Spur) Not Reportable 12/02/16 08:13 Rouleaux Not Reportable 12/02/16 08:13 Hemoglobin C Crystals Not Reportable 12/02/16 08:13 Schistocytes Not Reportable 12/02/16 08:13 Malaria parasites Not Reportable 12/02/16 08:13 Domenic Bodies Not Reportable 12/02/16 08:13 Hem Pathologist Commnt No 12/02/16 08:13 PT 14.1 Sec. (12.2-14.9) 12/04/16 15:46 INR 1.10 (0.87-1.13) 12/04/16 15:46 APTT 36.8 Sec. (24.2-36.6) H 12/04/16 15:46 VBG pH 7.395 (7.320-7.420) 12/01/16 12:50 Sodium 141 mmol/L (137-145) 12/11/16 14:52 Potassium 4.1 mmol/L (3.6-5.0) 12/11/16 14:52 Chloride 102.0 mmol/L (98-107) 12/11/16 14:52 Carbon Dioxide 30 mmol/L (22-30) 12/11/16 14:52 Anion Gap 13 mmol/L 12/11/16 14:52 BUN 13 mg/dL (9-20) 12/11/16 14:52 Creatinine 1.1 mg/dL (0.8-1.5) 12/11/16 14:52 Estimated GFR > 60 ml/min 12/11/16 14:52 BUN/Creatinine Ratio 11.81 % 12/11/16 14:52 Glucose 104 mg/dL (75-100) H 12/11/16 14:52 POC Glucose 187 (70-105) H 12/01/16 18:59 Hemoglobin A1c 5.8 % (4-6) 12/02/16 08:13 Lactic Acid 1.50 mmol/L (0.7-2.0) 12/01/16 16:06 Calcium 9.2 mg/dL (8.4-10.2) 12/11/16 14:52 Troponin T < 0.010 ng/mL (0.00-0.029) 12/01/16 10:10 HIV 1&2 Antibody Rapid Non react (Non React) 12/04/16 15:46 HIV P24 Antigen Non react (Non React) 12/04/16 15:46 TB (QFT) Gold In Tube Positive (Negative) H 12/08/16 17:00 TB Test (QFT) Nil 0.07 IU/mL 12/08/16 17:00 TB Test Mitogen - Nil >10.00 IU/mL 12/08/16 17:00 TB Test Antigen - Nil >10.00 IU/mL 12/08/16 17:00
[2016-12-13] MEDS: NACL 0.9% 1000 ML 1,000 ML IV SCH (18:27)
--- NOTE | 2016-12-14 07:30 | XRay Report ---
CHEST 2 VIEWS INDICATION: Rales, pneumonia. COMPARISON: 12/01/2016 FINDINGS: PA and lateral chest radiographs now demonstrate approximately 7 cm right upper lobe pneumonia extending from the right hilum, previously approximately 5.5 cm. Mild chronic changes within remainder lungs, including approximately 6 mm left upper lobe calcified granuloma, known by interval CT, again seen. No CHF, though mild increased fluid or thickening along the major fissures now noted. Trace right pleural effusion also now not excluded. Normal cardiomediastinal silhouette. Intact bones. CONCLUSION: Right upper lobe pneumonia now slightly larger radiographically with other chronic predominantly left lung changes known by interval CT. Followup to complete resolution recommended. Thank you for the opportunity to participate in this patient's care.
[2016-12-14] MEDS: XOPENEX IH SCH ×3 (07:50→20:29)
[2016-12-14] MEDS: ATROVENT IH SCH ×3 (07:50→20:30)
[2016-12-14 09:00] LABS: Hematocrit 39.2 % (35.5-45.6); Hemoglobin 12.9 gm/dl (11.8-15.2); Mean Corpuscular HGB Conc 33 % (32-34); Mean Corpuscular Hemoglobin 29 pg (28-32); Mean Corpuscular Volume 88 fl (84-94); Platelet Count 424 K/mm3 (140-440); Red Blood Count 4.46 M/mm3 (3.65-5.03); Red Cell Distribution Width 15.1 % (13.2-15.2); White Blood Count 6.3 K/mm3 (4.5-11.0)
[2016-12-14 09:27] LABS: Alanine Aminotransferase 47 units/L (7-56); Albumin/Globulin Ratio 0.7 %; Alkaline Phosphatase 61 units/L (35-129); Anion Gap 13 mmol/L; BUN/Creatinine Ratio 13.63; Blood Urea Nitrogen 15 mg/dL (9-20); Carbon Dioxide 29 mmol/L (22-30); Chloride 102.2 mmol/L (98-107); Glucose 83 mg/dL (75-100); Potassium 4.7 mmol/L (3.6-5.0); Sodium 139 mmol/L (137-145); Total Protein 7.4 g/dL (6.3-8.2)
--- NOTE | 2016-12-14 10:51 | Progress Note ---
Assessment and Plan - Patient Problems (1) Latent tuberculosis infection Current Visit: Yes Status: Acute Plan to address problem: 1. Still awaiting result of AFB studies. Latent vs. active TB treatment is anticipated. Subjective Date of service: 12/14/16 Principal diagnosis: pneumonia, bronchiectasis, spiculated lesion left lower lobe Interval history: No new complaints. Continues to improve clinically. Objective - Constitutional Vitals: Vital Signs Temp Pulse Resp BP Pulse Ox 98.4 F 70 22 125/88 99 12/14/16 08:00 12/14/16 08:00 12/14/16 08:00 12/14/16 08:00 12/14/16 08:00 Temperature -Last 24 Hours Temperature 98.4 F Temperature 98.1 F Temperature 98.2 F General appearance: Present: no acute distress - Neck Neck: supple - Respiratory Respiratory effort: normal Respiratory: bilateral: rales (upper lung head), negative: wheezing - Cardiovascular Rhythm: regular Heart Sounds: Present: S1 & S2 Extremities: No edema - Gastrointestinal General gastrointestinal: Present: soft, non-distended - Integumentary Integumentary: no jaundice, no rash - Psychiatric Psychiatric: appropriate mood/affect - Labs CBC & Chem 7: 12/14/16 08:14 12/14/16 08:14 Labs: Abnormal lab results 12/14/16 Range/Units 08:14 Albumin 3.0 L (3.9-5) g/dL Microbiology 12/08/16 13:27 Bronchoalveolar Lavage - Right Upper Lobe Respiratory Culture - Final 12/08/16 13:27 Bronchoalveolar Lavage - Right Upper Lobe Fungal Culture - Preliminary 12/01/16 12:50 Peripheral/Venous Blood Culture - Final NO GROWTH AFTER 5 DAYS 12/01/16 13:16 Peripheral/Venous Blood Culture - Final NO GROWTH AFTER 5 DAYS - Imaging and cardiology Chest x-ray: report reviewed (increased dimensions of RUL infiltrate)
--- NOTE | 2016-12-14 11:05 | Progress Note ---
Assessment and Plan Assessment and plan: Patient is 61-year-old man history of hypertension, asthma and GERD who presents with shortness of breath and productive cough. Chest x-ray shows right upper lobe pneumonia, white blood cell count was 20.5. Blood glucose was 227, creatinine 1.7. Patient is febrile so I ordered Tylenol. CT chest showed pneumonia, bronchiectasis, spiculated lesion left lower lobe -Aspiration pneumonia right upper lobe: Treated with antibiotics, follow blood culture, added renal dose zosyn -Acute hypoxic respiratory failure, poa: continue to wean o2 -Sepsis due to pneumonia present on admission: Treated with antibiotics, stopped IV fluids and gave a dose of lasix iv x 1 which really helped . -Acute renal failure, vasomotor nephropathy: Treated with IV fluids, was getting fluid overloaded, therefore stopped ivf -Hyperglycemia, Checked A1c==>5.8 unlikely DM, so hyperglycemia due to pre-dm vs stress reaction, start diabetic diet and ordered sliding scale insulin -DVT prophylaxis: SCDs and subcutaneous heparin Full code 12/03: wbc increasing and febrile, ordered CT chest chest without contrast due to renal dysfunction==>consulted pulmonology d/w Dr. Carr: I will order HIV, PPD, change levaquin to azithromycin, continue iv zosyn. No need for Tb isolation per Charge nurse Lan. I d/w patient and he is agreeable for testing. Bronchoscopy done PPD placed Monday left forearm. Read PPD as negative 12/06/16 Bronch done HIV negative Gold Interferon positive==> AFB pending to determine Latent vs Active Infection 12/13/16 per ID: "(1) Latent tuberculosis infection Current Visit: Yes Status: Acute Plan to address problem: 1. Await sputum AFB result. 2. INH 300mg / vitamin B6 50mg daily IF NEGATIVE AFB studies. 3. RIPE/ vitamin B6 or other regimen IF POSITIVE AFB studies." 12/14/16: Trying to wean O2, awaiting AFB History Interval history: Patient seen and examined. Follow up on shortness breath. He is on 2 L oxygen. Which is new. Imaging, old records, testing, labs, nursing notes reviewed. Hospitalist Physical - Physical exam Narrative exam: GEN: WDWN, NAD, AWAKE, ALERT, ORIENTATED x 3 HEENT: NCAT, PERRL, EOMI, OP CLEAR NECK: SUPPLE, NO THYROMEGALY, NO JVD, NO LAD CVS: RRR, NORMAL S1S2 LUNGS/CHEST: Coarse breath sounds were right upper lung, NORMAL CHEST EXPANSION B, GOOD AIR ENTRY B ABD: SOFT, diffuse tenderness, distended, GBS, NO REBOUND OR GUARDING EXT/SKIN: NO SIGNIFICANT EDEMA OR RASH MSK: FROM X 4 EXTREMITIES NEURO: CN 2-12 GROSSLY INTACT, NO FOCAL DEFICITS PSY: CALM - Constitutional Vitals: Temp Pulse Resp BP Pulse Ox 98.4 F 70 22 125/88 99 12/14/16 08:00 12/14/16 08:00 12/14/16 08:00 12/14/16 08:00 12/14/16 08:00 Results - Labs CBC & Chem 7: 12/14/16 08:14 12/14/16 08:14 Labs: Laboratory Last Values WBC 6.3 K/mm3 (4.5-11.0) 12/14/16 08:14 RBC 4.46 M/mm3 (3.65-5.03) 12/14/16 08:14 Hgb 12.9 gm/dl (11.8-15.2) 12/14/16 08:14 Hct 39.2 % (35.5-45.6) 12/14/16 08:14 MCV 88 fl (84-94) 12/14/16 08:14 MCH 29 pg (28-32) 12/14/16 08:14 MCHC 33 % (32-34) 12/14/16 08:14 RDW 15.1 % (13.2-15.2) 12/14/16 08:14 Plt Count 424 K/mm3 (140-440) 12/14/16 08:14 Add Manual Diff Complete 12/02/16 08:13 Total Counted 100 12/02/16 08:13 Seg Neutrophils % Grading Clerk 12/01/16 10:10 Seg Neuts % (Manual) 55.0 % (40.0-70.0) 12/02/16 08:13 Band Neutrophils % 35.0 % 12/02/16 08:13 Lymphocytes % (Manual) 5.0 % (13.4-35.0) L 12/02/16 08:13 Reactive Lymphs % (Man) 0 % 12/02/16 08:13 Monocytes % (Manual) 5.0 % (0.0-7.3) 12/02/16 08:13 Eosinophils % (Manual) 0 % (0.0-4.3) 12/02/16 08:13 Basophils % (Manual) 0 % (0.0-1.8) 12/02/16 08:13 Metamyelocytes % 0 % 12/02/16 08:13 Myelocytes % 0 % 12/02/16 08:13 Promyelocytes % 0 % 12/02/16 08:13 Blast Cells % 0 % 12/02/16 08:13 Nucleated RBC % Not Reportable 12/02/16 08:13 Seg Neutrophils # Man 12.3 K/mm3 (1.8-7.7) H 12/02/16 08:13 Band Neutrophils # 7.8 K/mm3 12/02/16 08:13 Lymphocytes # (Manual) 1.1 K/mm3 (1.2-5.4) L 12/02/16 08:13 Abs React Lymphs (Man) 0.0 K/mm3 12/02/16 08:13 Monocytes # (Manual) 1.1 K/mm3 (0.0-0.8) H 12/02/16 08:13 Eosinophils # (Manual) 0.0 K/mm3 (0.0-0.4) 12/02/16 08:13 Basophils # (Manual) 0.0 K/mm3 (0.0-0.1) 12/02/16 08:13 Metamyelocytes # 0.0 K/mm3 12/02/16 08:13 Myelocytes # 0.0 K/mm3 12/02/16 08:13 Promyelocytes # 0.0 K/mm3 12/02/16 08:13 Blast Cells # 0.0 K/mm3 12/02/16 08:13 WBC Morphology Not Reportable 12/02/16 08:13 Hypersegmented Neuts Not Reportable 12/02/16 08:13 Hyposegmented Neuts Not Reportable 12/02/16 08:13 Hypogranular Neuts Not Reportable 12/02/16 08:13 Smudge Cells Not Reportable 12/02/16 08:13 Toxic Granulation Not Reportable 12/02/16 08:13 Toxic Vacuolation Not Reportable 12/02/16 08:13 Dohle Bodies Not Reportable 12/02/16 08:13 Pelger-Huet Anomaly Not Reportable 12/02/16 08:13 Darius Rods Not Reportable 12/02/16 08:13 Platelet Estimate Appears decreased 12/02/16 08:13 Clumped Platelets Not Reportable 12/02/16 08:13 Plt Clumps, EDTA Not Reportable 12/02/16 08:13 Large Platelets Not Reportable 12/02/16 08:13 Giant Platelets Not Reportable 12/02/16 08:13 Platelet Satelliting Not Reportable 12/02/16 08:13 Plt Morphology Comment Not Reportable 12/02/16 08:13 RBC Morphology Normal 12/02/16 08:13 Dimorphic RBCs Not Reportable 12/02/16 08:13 Polychromasia Not Reportable 12/02/16 08:13 Hypochromasia Not Reportable 12/02/16 08:13 Poikilocytosis Not Reportable 12/02/16 08:13 Anisocytosis Not Reportable 12/02/16 08:13 Microcytosis Not Reportable 12/02/16 08:13 Macrocytosis Not Reportable 12/02/16 08:13 Spherocytes Not Reportable 12/02/16 08:13 Pappenheimer Bodies Not Reportable 12/02/16 08:13 Sickle Cells Not Reportable 12/02/16 08:13 Target Cells Not Reportable 12/02/16 08:13 Tear Drop Cells Not Reportable 12/02/16 08:13 Ovalocytes Not Reportable 12/02/16 08:13 Helmet Cells Not Reportable 12/02/16 08:[address] [place] Bodies Not Reportable 12/02/16 08:13 [place] Rings Not Reportable 12/02/16 08:13 [place] Cells Not Reportable 12/02/16 08:13 Bite Cells Not Reportable 12/02/16 08:13 Crenated Cell Not Reportable 12/02/16 08:13 Elliptocytes Not Reportable 12/02/16 08:13 Acanthocytes (Spur) Not Reportable 12/02/16 08:13 Rouleaux Not Reportable 12/02/16 08:13 Hemoglobin C Crystals Not Reportable 12/02/16 08:13 Schistocytes Not Reportable 12/02/16 08:13 Malaria parasites Not Reportable 12/02/16 08:13 Domenic Bodies Not Reportable 12/02/16 08:13 Hem Pathologist Commnt No 12/02/16 08:13 PT 14.1 Sec. (12.2-14.9) 12/04/16 15:46 INR 1.10 (0.87-1.13) 12/04/16 15:46 APTT 36.8 Sec. (24.2-36.6) H 12/04/16 15:46 VBG pH 7.395 (7.320-7.420) 12/01/16 12:50 Sodium 139 mmol/L (137-145) 12/14/16 08:14 Potassium 4.7 mmol/L (3.6-5.0) 12/14/16 08:14 Chloride 102.2 mmol/L (98-107) 12/14/16 08:14 Carbon Dioxide 29 mmol/L (22-30) 12/14/16 08:14 Anion Gap 13 mmol/L 12/14/16 08:14 BUN 15 mg/dL (9-20) 12/14/16 08:14 Creatinine 1.1 mg/dL (0.8-1.5) 12/14/16 08:14 Estimated GFR > 60 ml/min 12/14/16 08:14 BUN/Creatinine Ratio 13.63 % 12/14/16 08:14 Glucose 83 mg/dL (75-100) 12/14/16 08:14 POC Glucose 187 (70-105) H 12/01/16 18:59 Hemoglobin A1c 5.8 % (4-6) 12/02/16 08:13 Lactic Acid 1.50 mmol/L (0.7-2.0) 12/01/16 16:06 Calcium 10.0 mg/dL (8.4-10.2) 12/14/16 08:14 Total Bilirubin 0.40 mg/dL (0.1-1.2) 12/14/16 08:14 AST 29 units/L (5-40) 12/14/16 08:14 ALT 47 units/L (7-56) 12/14/16 08:14 Alkaline Phosphatase 61 units/L (35-129) 12/14/16 08:14 Troponin T < 0.010 ng/mL (0.00-0.029) 12/01/16 10:10 Total Protein 7.4 g/dL (6.3-8.2) 12/14/16 08:14 Albumin 3.0 g/dL (3.9-5) L 12/14/16 08:14 Albumin/Globulin Ratio 0.7 % 12/14/16 08:14 HIV 1&2 Antibody Rapid Non react (Non React) 12/04/16 15:46 HIV P24 Antigen Non react (Non React) 12/04/16 15:46 TB (QFT) Gold In Tube Positive (Negative) H 12/08/16 17:00 TB Test (QFT) Nil 0.07 IU/mL 12/08/16 17:00 TB Test Mitogen - Nil >10.00 IU/mL 12/08/16 17:00 TB Test Antigen - Nil >10.00 IU/mL 12/08/16 17:00
[2016-12-14] MEDS: COZAAR PO SCH (11:25)
[2016-12-14] MEDS: NORVASC PO SCH (11:26)
[2016-12-14] MEDS: COREG PO SCH ×2 (11:26→22:10)
[2016-12-14] MEDS: PROTONIX PO SCH (11:27)
--- NOTE | 2016-12-14 14:39 | Progress Note ---
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 Will ask RT to wean FiO2 to off as tolerated. Can assess need for O2 prior to discharge with ambulatory test. Resting sats have been well. 2. Will continue to follow along and see as needed. Subjective Date of service: 12/14/16 Principal diagnosis: pneumonia, bronchiectasis, spiculated lesion left lower lobe Interval history: Prelim on fungal culture shows no yeast or hyphae. Still pending in regards to TB Objective Vital Signs - 12hr 12/14/16 12/14/16 12/14/16 08:00 08:10 10:00 Temperature 98.4 F Pulse Rate 70 Pulse Rate [ 72 72 Anterior Bilateral Throughout] Respiratory 22 Rate Respiratory 18 18 Rate [Anterior Bilateral Throughout] Blood Pressure Blood Pressure 125/88 [Right] O2 Sat by Pulse 99 98 Oximetry 12/14/16 12/14/16 12/14/16 11:25 11:26 13:24 Temperature Pulse Rate 70 70 Pulse Rate [ Anterior Bilateral Throughout] Respiratory Rate Respiratory Rate [Anterior Bilateral Throughout] Blood Pressure 125/88 125/88 Blood Pressure [Right] O2 Sat by Pulse 98 Oximetry Constitutional: no acute distress, alert Eyes: non-icteric ENT: oropharynx moist Neck: supple, no lymphadenopathy, no JVD Effort: mildly labored Ascultation: Right: wheezes (upper lobe), rales (upper midlobe), Bilateral: clear Percussion: Bilateral: not dull Tactile fremitus: Bilateral: normal Cardiovascular: regular rate and rhythm Gastrointestinal: normoactive bowel sounds Extremities: no cyanosis, no edema, pink and warm, pulses normal Neurologic: normal mental status, non-focal exam, pupils equal and round, CN II- XII normal Psychiatric: mood appropriate, affect normal CBC and BMP: 12/14/16 08:14 12/14/16 08:14 ABG, PT/INR, D-dimer: PT/INR, D-dimer PT 14.1 Sec. (12.2-14.9) 12/04/16 15:46 INR 1.10 (0.87-1.13) 12/04/16 15:46 Abnormal lab findings: Abnormal Labs 12/01/16 12/02/16 12/03/16 18:59 08:13 05:31 WBC 22.4 H 23.9 H Hgb RDW Plt Count 118 L 134 L Lymphocytes % (Manual) 5.0 L Seg Neutrophils # Man 12.3 H Lymphocytes # (Manual) 1.1 L Monocytes # (Manual) 1.1 H APTT Potassium BUN Creatinine Glucose POC Glucose 187 H Albumin TB (QFT) Gold In Tube 12/03/16 12/04/16 12/06/16 05:31 15:46 07:46 WBC Hgb RDW 15.6 H Plt Count Lymphocytes % (Manual) Seg Neutrophils # Man Lymphocytes # (Manual) Monocytes # (Manual) APTT 36.8 H Potassium 3.4 L BUN 28 H Creatinine 1.6 H Glucose 118 H POC Glucose Albumin TB (QFT) Gold In Tube 12/07/16 12/08/16 12/08/16 06:45 08:12 08:12 WBC 11.9 H Hgb 11.6 L RDW 15.3 H 15.4 H Plt Count Lymphocytes % (Manual) Seg Neutrophils # Man Lymphocytes # (Manual) Monocytes # (Manual) APTT Potassium BUN Creatinine Glucose 74 L POC Glucose Albumin TB (QFT) Gold In Tube 12/08/16 12/11/16 12/14/16 17:00 14:52 08:14 WBC Hgb RDW Plt Count Lymphocytes % (Manual) Seg Neutrophils # Man Lymphocytes # (Manual) Monocytes # (Manual) APTT Potassium BUN Creatinine Glucose 104 H POC Glucose Albumin 3.0 L TB (QFT) Gold In Tube Positive H
[2016-12-14] MEDS: NACL 0.9% 1000 ML 1,000 ML IV SCH (18:31)
[2016-12-15] MEDS: COREG PO SCH ×2 (11:32→22:35)
[2016-12-15] MEDS: COZAAR PO SCH (11:33)
[2016-12-15] MEDS: PROTONIX PO SCH (11:33)
[2016-12-15] MEDS: NORVASC PO SCH (11:34)
--- NOTE | 2016-12-15 13:33 | Progress Note ---
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 Will ask RT to wean FiO2 to off as tolerated. Can assess need for O2 prior to discharge with ambulatory test. Resting sats have been well. 2. Will continue to follow along and see as needed. Subjective Date of service: 12/15/16 Principal diagnosis: pneumonia, bronchiectasis, spiculated lesion left lower lobe Interval history: No acute events. Still awaiting bronch results Objective Vital Signs - 12hr 12/15/16 12/15/16 12/15/16 07:00 11:32 11:33 Temperature 98.3 F Pulse Rate 64 64 64 Respiratory 19 Rate Blood Pressure 137/97 137/97 Blood Pressure 137/97 [Right] O2 Sat by Pulse 97 Oximetry 12/15/16 11:34 Temperature Pulse Rate 64 Respiratory Rate Blood Pressure 137/97 Blood Pressure [Right] O2 Sat by Pulse Oximetry Constitutional: no acute distress, alert Eyes: non-icteric ENT: oropharynx moist Neck: supple, no lymphadenopathy, no JVD Effort: mildly labored Ascultation: Right: wheezes (upper lobe), rales (upper midlobe), Bilateral: clear Percussion: Bilateral: not dull Tactile fremitus: Bilateral: normal Cardiovascular: regular rate and rhythm Gastrointestinal: normoactive bowel sounds Extremities: no cyanosis, no edema, pink and warm, pulses normal Neurologic: normal mental status, non-focal exam, pupils equal and round, CN II- XII normal Psychiatric: mood appropriate, affect normal CBC and BMP: 12/14/16 08:14 12/14/16 08:14 ABG, PT/INR, D-dimer: PT/INR, D-dimer PT 14.1 Sec. (12.2-14.9) 12/04/16 15:46 INR 1.10 (0.87-1.13) 12/04/16 15:46 Abnormal lab findings: Abnormal Labs 12/01/16 12/02/16 12/03/16 18:59 08:13 05:31 WBC 22.4 H 23.9 H Hgb RDW Plt Count 118 L 134 L Lymphocytes % (Manual) 5.0 L Seg Neutrophils # Man 12.3 H Lymphocytes # (Manual) 1.1 L Monocytes # (Manual) 1.1 H APTT Potassium BUN Creatinine Glucose POC Glucose 187 H Albumin TB (QFT) Gold In Tube 12/03/16 12/04/16 12/06/16 05:31 15:46 07:46 WBC Hgb RDW 15.6 H Plt Count Lymphocytes % (Manual) Seg Neutrophils # Man Lymphocytes # (Manual) Monocytes # (Manual) APTT 36.8 H Potassium 3.4 L BUN 28 H Creatinine 1.6 H Glucose 118 H POC Glucose Albumin TB (QFT) Gold In Tube 12/07/16 12/08/16 12/08/16 06:45 08:12 08:12 WBC 11.9 H Hgb 11.6 L RDW 15.3 H 15.4 H Plt Count Lymphocytes % (Manual) Seg Neutrophils # Man Lymphocytes # (Manual) Monocytes # (Manual) APTT Potassium BUN Creatinine Glucose 74 L POC Glucose Albumin TB (QFT) Gold In Tube 12/08/16 12/11/16 12/14/16 17:00 14:52 08:14 WBC Hgb RDW Plt Count Lymphocytes % (Manual) Seg Neutrophils # Man Lymphocytes # (Manual) Monocytes # (Manual) APTT Potassium BUN Creatinine Glucose 104 H POC Glucose Albumin 3.0 L TB (QFT) Gold In Tube Positive H
--- NOTE | 2016-12-15 16:29 | Progress Note ---
Assessment and Plan Assessment and plan: Patient is 61-year-old man history of hypertension, asthma and GERD who presents with shortness of breath and productive cough. Chest x-ray shows right upper lobe pneumonia, white blood cell count was 20.5. Blood glucose was 227, creatinine 1.7. Patient is febrile so I ordered Tylenol. CT chest showed pneumonia, bronchiectasis, spiculated lesion left lower lobe -Aspiration pneumonia right upper lobe: Treated with antibiotics, follow blood culture, added renal dose zosyn -Acute hypoxic respiratory failure, poa: continue to wean o2 -Sepsis due to pneumonia present on admission: Treated with antibiotics, stopped IV fluids and gave a dose of lasix iv x 1 which really helped . -Acute renal failure, vasomotor nephropathy: Treated with IV fluids, was getting fluid overloaded, therefore stopped ivf -Hyperglycemia, Checked A1c==>5.8 unlikely DM, so hyperglycemia due to pre-dm vs stress reaction, start diabetic diet and ordered sliding scale insulin -DVT prophylaxis: SCDs and subcutaneous heparin Full code 12/03: wbc increasing and febrile, ordered CT chest chest without contrast due to renal dysfunction==>consulted pulmonology d/w Dr. Carr: I will order HIV, PPD, change levaquin to azithromycin, continue iv zosyn. No need for Tb isolation per Charge nurse Lan. I d/w patient and he is agreeable for testing. Bronchoscopy done PPD placed Monday left forearm. Read PPD as negative 12/06/16 Bronch done HIV negative Gold Interferon positive==> AFB pending to determine Latent vs Active Infection Tb 12/13/16 per ID: "(1) Latent tuberculosis infection Current Visit: Yes Status: Acute Plan to address problem: 1. Await sputum AFB result. 2. INH 300mg / vitamin B6 50mg daily IF NEGATIVE AFB studies. 3. RIPE/ vitamin B6 or other regimen IF POSITIVE AFB studies." 12/14/16: Trying to wean O2, awaiting AFB 12/15/16: AFB still pending, case management called [facility], they don't have order AFB? But they still have the sample and will run it now. I notified Dr. Mounika Chand, infectious disease physician==>Her concerns are transmission and Public Safety. 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 ?Give him RIPE then follow-up with Dr. 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 History Interval history: Patient seen and examined. Follow up on shortness breath. He is on 2 L oxygen. Which is new. Imaging, old records, testing, labs, nursing notes reviewed. Hospitalist Physical - Physical exam Narrative exam: GEN: WDWN, NAD, AWAKE, ALERT, ORIENTATED x 3 HEENT: NCAT, PERRL, EOMI, OP CLEAR NECK: SUPPLE, NO THYROMEGALY, NO JVD, NO LAD CVS: RRR, NORMAL S1S2 LUNGS/CHEST: Coarse breath sounds were right upper lung, NORMAL CHEST EXPANSION B, GOOD AIR ENTRY B ABD: SOFT, diffuse tenderness, distended, GBS, NO REBOUND OR GUARDING EXT/SKIN: NO SIGNIFICANT EDEMA OR RASH MSK: FROM X 4 EXTREMITIES NEURO: CN 2-12 GROSSLY INTACT, NO FOCAL DEFICITS PSY: CALM - Constitutional Vitals: Temp Pulse Resp BP Pulse Ox 98.3 F 64 19 137/97 97 12/15/16 07:00 12/15/16 11:34 12/15/16 07:00 12/15/16 11:34 12/15/16 07:00 General appearance: Present: no acute distress Results - Labs CBC & Chem 7: 12/14/16 08:14 12/14/16 08:14 Labs: Laboratory Last Values WBC 6.3 K/mm3 (4.5-11.0) 12/14/16 08:14 RBC 4.46 M/mm3 (3.65-5.03) 12/14/16 08:14 Hgb 12.9 gm/dl (11.8-15.2) 12/14/16 08:14 Hct 39.2 % (35.5-45.6) 12/14/16 08:14 MCV 88 fl (84-94) 12/14/16 08:14 MCH 29 pg (28-32) 12/14/16 08:14 MCHC 33 % (32-34) 12/14/16 08:14 RDW 15.1 % (13.2-15.2) 12/14/16 08:14 Plt Count 424 K/mm3 (140-440) 12/14/16 08:14 Add Manual Diff Complete 12/02/16 08:13 Total Counted 100 12/02/16 08:13 Seg Neutrophils % Typesetting Machine Operator/Tender 12/01/16 10:10 Seg Neuts % (Manual) 55.0 % (40.0-70.0) 12/02/16 08:13 Band Neutrophils % 35.0 % 12/02/16 08:13 Lymphocytes % (Manual) 5.0 % (13.4-35.0) L 12/02/16 08:13 Reactive Lymphs % (Man) 0 % 12/02/16 08:13 Monocytes % (Manual) 5.0 % (0.0-7.3) 12/02/16 08:13 Eosinophils % (Manual) 0 % (0.0-4.3) 12/02/16 08:13 Basophils % (Manual) 0 % (0.0-1.8) 12/02/16 08:13 Metamyelocytes % 0 % 12/02/16 08:13 Myelocytes % 0 % 12/02/16 08:13 Promyelocytes % 0 % 12/02/16 08:13 Blast Cells % 0 % 12/02/16 08:13 Nucleated RBC % Not Reportable 12/02/16 08:13 Seg Neutrophils # Man 12.3 K/mm3 (1.8-7.7) H 12/02/16 08:13 Band Neutrophils # 7.8 K/mm3 12/02/16 08:13 Lymphocytes # (Manual) 1.1 K/mm3 (1.2-5.4) L 12/02/16 08:13 Abs React Lymphs (Man) 0.0 K/mm3 12/02/16 08:13 Monocytes # (Manual) 1.1 K/mm3 (0.0-0.8) H 12/02/16 08:13 Eosinophils # (Manual) 0.0 K/mm3 (0.0-0.4) 12/02/16 08:13 Basophils # (Manual) 0.0 K/mm3 (0.0-0.1) 12/02/16 08:13 Metamyelocytes # 0.0 K/mm3 12/02/16 08:13 Myelocytes # 0.0 K/mm3 12/02/16 08:13 Promyelocytes # 0.0 K/mm3 12/02/16 08:13 Blast Cells # 0.0 K/mm3 12/02/16 08:13 WBC Morphology Not Reportable 12/02/16 08:13 Hypersegmented Neuts Not Reportable 12/02/16 08:13 Hyposegmented Neuts Not Reportable 12/02/16 08:13 Hypogranular Neuts Not Reportable 12/02/16 08:13 Smudge Cells Not Reportable 12/02/16 08:13 Toxic Granulation Not Reportable 12/02/16 08:13 Toxic Vacuolation Not Reportable 12/02/16 08:13 Dohle Bodies Not Reportable 12/02/16 08:13 Pelger-Huet Anomaly Not Reportable 12/02/16 08:13 Darius Rods Not Reportable 12/02/16 08:13 Platelet Estimate Appears decreased 12/02/16 08:13 Clumped Platelets Not Reportable 12/02/16 08:13 Plt Clumps, EDTA Not Reportable 12/02/16 08:13 Large Platelets Not Reportable 12/02/16 08:13 Giant Platelets Not Reportable 12/02/16 08:13 Platelet Satelliting Not Reportable 12/02/16 08:13 Plt Morphology Comment Not Reportable 12/02/16 08:13 RBC Morphology Normal 12/02/16 08:13 Dimorphic RBCs Not Reportable 12/02/16 08:13 Polychromasia Not Reportable 12/02/16 08:13 Hypochromasia Not Reportable 12/02/16 08:13 Poikilocytosis Not Reportable 12/02/16 08:13 Anisocytosis Not Reportable 12/02/16 08:13 Microcytosis Not Reportable 12/02/16 08:13 Macrocytosis Not Reportable 12/02/16 08:13 Spherocytes Not Reportable 12/02/16 08:13 Pappenheimer Bodies Not Reportable 12/02/16 08:13 Sickle Cells Not Reportable 12/02/16 08:13 Target Cells Not Reportable 12/02/16 08:13 Tear Drop Cells Not Reportable 12/02/16 08:13 Ovalocytes Not Reportable 12/02/16 08:13 Helmet Cells Not Reportable 12/02/16 08:13 [place] Bodies Not Reportable 12/02/16 08:13 [place] Rings Not Reportable 12/02/16 08:13 [place] Cells Not Reportable 12/02/16 08:13 Bite Cells Not Reportable 12/02/16 08:13 Crenated Cell Not Reportable 12/02/16 08:13 Elliptocytes Not Reportable 12/02/16 08:13 Acanthocytes (Spur) Not Reportable 12/02/16 08:13 Rouleaux Not Reportable 12/02/16 08:13 Hemoglobin C Crystals Not Reportable 12/02/16 08:13 Schistocytes Not Reportable 12/02/16 08:13 Malaria parasites Not Reportable 12/02/16 08:13 Domenic Bodies Not Reportable 12/02/16 08:13 Hem Pathologist Commnt No 12/02/16 08:13 PT 14.1 Sec. (12.2-14.9) 12/04/16 15:46 INR 1.10 (0.87-1.13) 12/04/16 15:46 APTT 36.8 Sec. (24.2-36.6) H 12/04/16 15:46 VBG pH 7.395 (7.320-7.420) 12/01/16 12:50 Sodium 139 mmol/L (137-145) 12/14/16 08:14 Potassium 4.7 mmol/L (3.6-5.0) 12/14/16 08:14 Chloride 102.2 mmol/L (98-107) 12/14/16 08:14 Carbon Dioxide 29 mmol/L (22-30) 12/14/16 08:14 Anion Gap 13 mmol/L 12/14/16 08:14 BUN 15 mg/dL (9-20) 12/14/16 08:14 Creatinine 1.1 mg/dL (0.8-1.5) 12/14/16 08:14 Estimated GFR > 60 ml/min 12/14/16 08:14 BUN/Creatinine Ratio 13.63 % 12/14/16 08:14 Glucose 83 mg/dL (75-100) 12/14/16 08:14 POC Glucose 187 (70-105) H 12/01/16 18:59 Hemoglobin A1c 5.8 % (4-6) 12/02/16 08:13 Lactic Acid 1.50 mmol/L (0.7-2.0) 12/01/16 16:06 Calcium 10.0 mg/dL (8.4-10.2) 12/14/16 08:14 Total Bilirubin 0.40 mg/dL (0.1-1.2) 12/14/16 08:14 AST 29 units/L (5-40) 12/14/16 08:14 ALT 47 units/L (7-56) 12/14/16 08:14 Alkaline Phosphatase 61 units/L (35-129) 12/14/16 08:14 Troponin T < 0.010 ng/mL (0.00-0.029) 12/01/16 10:10 Total Protein 7.4 g/dL (6.3-8.2) 12/14/16 08:14 Albumin 3.0 g/dL (3.9-5) L 12/14/16 08:14 Albumin/Globulin Ratio 0.7 % 12/14/16 08:14 HIV 1&2 Antibody Rapid Non react (Non React) 12/04/16 15:46 HIV P24 Antigen Non react (Non React) 12/04/16 15:46 TB (QFT) Gold In Tube Positive (Negative) H 12/08/16 17:00 TB Test (QFT) Nil 0.07 IU/mL 12/08/16 17:00 TB Test Mitogen - Nil >10.00 IU/mL 12/08/16 17:00 TB Test Antigen - Nil >10.00 IU/mL 12/08/16 17:00
[2016-12-15] MEDS: XOPENEX IH SCH ×3 (16:53→20:05)
[2016-12-15] MEDS: ATROVENT IH SCH ×3 (16:53→20:05)
[2016-12-16] MEDS: NACL 0.9% 1000 ML 1,000 ML IV SCH (07:12)
--- NOTE | 2016-12-16 09:12 | Progress Note ---
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 Will start RIPE/ B6 pending further AFB studies. If negative, will change to latent TB treatment as an outpatient. 2. Requesting assistance from case management and infection prevention in notifying the [facility] Dept of this potential case. 3. Patient has been informed that he should NOT return to work at the [facility] [facility] until he is informed of his TB status. 4. I will continue to follow his AFB results and communicate the treatment plan to him. (2) Pneumonia Current Visit: Yes Status: Acute Qualifiers: Pneumonia type: due to unspecified organism Aspiration pneumonia type: A Laterality: right Lung location: upper lobe of lung Qualified Code(s): J18.1 - Lobar pneumonia, unspecified organism Plan to address problem: Treatment completed for CAP. Remains stable. Subjective Date of service: 12/16/16 Principal diagnosis: pneumonia, bronchiectasis, spiculated lesion left lower lobe Interval history: Sputum samples are being re-collected for AFB testing. Objective - Constitutional Vitals: Vital Signs Temp Pulse Resp BP Pulse Ox 98.0 F 72 20 119/77 97 12/15/16 23:20 12/15/16 23:20 12/15/16 23:20 12/15/16 23:20 12/15/16 23:20 Temperature -Last 24 Hours Temperature 98.0 F Temperature 98.3 F General appearance: Present: no acute distress - Neck Neck: supple - Respiratory Respiratory: bilateral: rales - Cardiovascular Rhythm: regular Heart Sounds: Present: S1 & S2 Extremities: No edema - Gastrointestinal General gastrointestinal: Present: soft, non-distended - Integumentary Integumentary: no jaundice, no rash - Neurologic Neurologic: moves all extremities - Labs CBC & Chem 7: 12/14/16 08:14 12/14/16 08:14 Labs: Microbiology 12/08/16 13:27 Bronchoalveolar Lavage - Right Upper Lobe Respiratory Culture - Final 12/08/16 13:27 Bronchoalveolar Lavage - Right Upper Lobe Fungal Culture - Preliminary 12/01/16 12:50 Peripheral/Venous Blood Culture - Final NO GROWTH AFTER 5 DAYS 12/01/16 13:16 Peripheral/Venous Blood Culture - Final NO GROWTH AFTER 5 DAYS
[2016-12-16] MEDS: XOPENEX IH SCH ×3 (09:25→22:40)
[2016-12-16] MEDS: ATROVENT IH SCH ×3 (09:25→22:40)
--- NOTE | 2016-12-16 09:59 | Progress Note ---
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 WIll need to assess ambulatory sats for possible Home O2 needs. 2. No objection to discharge from a pulmonary standpoint. Agree with current ID recommendations. Subjective Date of service: 12/16/16 Principal diagnosis: pneumonia, bronchiectasis, spiculated lesion left lower lobe Interval history: No acute events. Reviewed ID note from this am. Objective Vital Signs - 12hr 12/15/16 12/15/16 12/16/16 22:35 23:20 01:00 Temperature 98.0 F Pulse Rate 80 72 Pulse Rate [ 72 From Monitor] Respiratory 20 20 Rate Blood Pressure 126/68 Blood Pressure 119/77 [Right] O2 Sat by Pulse 97 96 Oximetry Constitutional: no acute distress, alert Eyes: non-icteric ENT: oropharynx moist Neck: supple, no lymphadenopathy, no JVD Effort: mildly labored Ascultation: Right: wheezes (upper lobe), rales (upper midlobe), Bilateral: clear Percussion: Bilateral: not dull Tactile fremitus: Bilateral: normal Cardiovascular: regular rate and rhythm Gastrointestinal: normoactive bowel sounds Extremities: no cyanosis, no edema, pink and warm, pulses normal Neurologic: normal mental status, non-focal exam, pupils equal and round, CN II- XII normal Psychiatric: mood appropriate, affect normal CBC and BMP: 12/14/16 08:14 12/14/16 08:14 ABG, PT/INR, D-dimer: PT/INR, D-dimer PT 14.1 Sec. (12.2-14.9) 12/04/16 15:46 INR 1.10 (0.87-1.13) 12/04/16 15:46 Abnormal lab findings: Abnormal Labs 12/01/16 12/02/16 12/03/16 18:59 08:13 05:31 WBC 22.4 H 23.9 H Hgb RDW Plt Count 118 L 134 L Lymphocytes % (Manual) 5.0 L Seg Neutrophils # Man 12.3 H Lymphocytes # (Manual) 1.1 L Monocytes # (Manual) 1.1 H APTT Potassium BUN Creatinine Glucose POC Glucose 187 H Albumin TB (QFT) Gold In Tube 12/03/16 12/04/16 12/06/16 05:31 15:46 07:46 WBC Hgb RDW 15.6 H Plt Count Lymphocytes % (Manual) Seg Neutrophils # Man Lymphocytes # (Manual) Monocytes # (Manual) APTT 36.8 H Potassium 3.4 L BUN 28 H Creatinine 1.6 H Glucose 118 H POC Glucose Albumin TB (QFT) Gold In Tube 12/07/16 12/08/16 12/08/16 06:45 08:12 08:12 WBC 11.9 H Hgb 11.6 L RDW 15.3 H 15.4 H Plt Count Lymphocytes % (Manual) Seg Neutrophils # Man Lymphocytes # (Manual) Monocytes # (Manual) APTT Potassium BUN Creatinine Glucose 74 L POC Glucose Albumin TB (QFT) Gold In Tube 12/08/16 12/11/16 12/14/16 17:00 14:52 08:14 WBC Hgb RDW Plt Count Lymphocytes % (Manual) Seg Neutrophils # Man Lymphocytes # (Manual) Monocytes # (Manual) APTT Potassium BUN Creatinine Glucose 104 H POC Glucose Albumin 3.0 L TB (QFT) Gold In Tube Positive H
[2016-12-16] MEDS: RIFADIN PO SCH (11:07)
[2016-12-16] MEDS: COREG PO SCH (11:07)
[2016-12-16] MEDS: NORVASC PO SCH (11:08)
[2016-12-16] MEDS: ISONIAZID PO SCH (11:09)
[2016-12-16] MEDS: MYAMBUTOL PO SCH (11:09)
[2016-12-16] MEDS: PYRAZINAMIDE PO SCH (11:10)
[2016-12-16] MEDS: PROTONIX PO SCH (11:10)
[2016-12-16] MEDS: VITAMIN B-6 PO SCH (11:10)
[2016-12-16] MEDS: COZAAR PO SCH (11:10)
--- NOTE | 2016-12-16 11:48 | Progress Note ---
Assessment and Plan Assessment and plan: Patient is 61-year-old man history of hypertension, asthma and GERD who presents with shortness of breath and productive cough. Chest x-ray shows right upper lobe pneumonia, white blood cell count was 20.5. Blood glucose was 227, creatinine 1.7. Patient is febrile so I ordered Tylenol. CT chest showed pneumonia, bronchiectasis, spiculated lesion left lower lobe -Aspiration pneumonia right upper lobe: Treated with antibiotics, follow blood culture, added renal dose zosyn -Acute hypoxic respiratory failure, poa: continue to wean o2 -Sepsis due to pneumonia present on admission: Treated with antibiotics, stopped IV fluids and gave a dose of lasix iv x 1 which really helped . -Acute renal failure, vasomotor nephropathy: Treated with IV fluids, was getting fluid overloaded, therefore stopped ivf -Hyperglycemia, Checked A1c==>5.8 unlikely DM, so hyperglycemia due to pre-dm vs stress reaction, start diabetic diet and ordered sliding scale insulin -DVT prophylaxis: SCDs and subcutaneous heparin Full code 12/03: wbc increasing and febrile, ordered CT chest chest without contrast due to renal dysfunction==>consulted pulmonology d/w Dr. Carr: I will order HIV, PPD, change levaquin to azithromycin, continue iv zosyn. No need for Tb isolation per Charge nurse Lan. I d/w patient and he is agreeable for testing. Bronchoscopy done PPD placed Monday left forearm. Read PPD as negative 12/06/16 Bronch done HIV negative Gold Interferon positive==> AFB pending to determine Latent vs Active Infection Tb 12/13/16 per ID: "(1) Latent tuberculosis infection Current Visit: Yes Status: Acute Plan to address problem: 1. Await sputum AFB result. 2. INH 300mg / vitamin B6 50mg daily IF NEGATIVE AFB studies. 3. RIPE/ vitamin B6 or other regimen IF POSITIVE AFB studies." 12/14/16: Trying to wean O2, awaiting AFB 12/15/16: AFB still pending, case management called [facility], they don't have order AFB? But they still have the sample and will run it now. I notified Dr. Mounika Chand, infectious disease physician==>Her concerns are transmission/ communicability and Public Safety. She request that i notify the Infective control personnel==> I spoke with Margot and she will let the health department know for DOT. ?Give him RIPE then follow-up with Dr. 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 12/16/16 d/w Margot from our infectious control department, she has faxed patient medical chart to [facility] and she has called them and left message. Sputum was not collected yesterday because patient had a dry cough, spoke with respiratory therapist, Cristo, again today and he will try to get a sputum sample and sent for AFB. Discussed with case management also. The safest thing here is to wait for AFB. History Interval history: Patient seen and examined. Follow up on shortness breath. He is on 2 L oxygen. Which is new. Imaging, old records, testing, labs, nursing notes reviewed. Hospitalist Physical - Physical exam Narrative exam: GEN: WDWN, NAD, AWAKE, ALERT, ORIENTATED x 3 HEENT: NCAT, PERRL, EOMI, OP CLEAR NECK: SUPPLE, NO THYROMEGALY, NO JVD, NO LAD CVS: RRR, NORMAL S1S2 LUNGS/CHEST: Coarse breath sounds were right upper lung, NORMAL CHEST EXPANSION B, GOOD AIR ENTRY B ABD: SOFT, diffuse tenderness, distended, GBS, NO REBOUND OR GUARDING EXT/SKIN: NO SIGNIFICANT EDEMA OR RASH MSK: FROM X 4 EXTREMITIES NEURO: CN 2-12 GROSSLY INTACT, NO FOCAL DEFICITS PSY: CALM - Constitutional Vitals: Temp Pulse Resp BP Pulse Ox 97.4 F L 59 L 22 165/95 96 12/16/16 08:30 12/16/16 11:10 12/16/16 08:30 12/16/16 11:10 12/16/16 08:30 General appearance: Present: no acute distress Results - Labs CBC & Chem 7: 12/14/16 08:14 12/14/16 08:14 Labs: Laboratory Last Values WBC 6.3 K/mm3 (4.5-11.0) 12/14/16 08:14 RBC 4.46 M/mm3 (3.65-5.03) 12/14/16 08:14 Hgb 12.9 gm/dl (11.8-15.2) 12/14/16 08:14 Hct 39.2 % (35.5-45.6) 12/14/16 08:14 MCV 88 fl (84-94) 12/14/16 08:14 MCH 29 pg (28-32) 12/14/16 08:14 MCHC 33 % (32-34) 12/14/16 08:14 RDW 15.1 % (13.2-15.2) 12/14/16 08:14 Plt Count 424 K/mm3 (140-440) 12/14/16 08:14 Add Manual Diff Complete 12/02/16 08:13 Total Counted 100 12/02/16 08:13 Seg Neutrophils % Pasteurizing Supervisor 12/01/16 10:10 Seg Neuts % (Manual) 55.0 % (40.0-70.0) 12/02/16 08:13 Band Neutrophils % 35.0 % 12/02/16 08:13 Lymphocytes % (Manual) 5.0 % (13.4-35.0) L 12/02/16 08:13 Reactive Lymphs % (Man) 0 % 12/02/16 08:13 Monocytes % (Manual) 5.0 % (0.0-7.3) 12/02/16 08:13 Eosinophils % (Manual) 0 % (0.0-4.3) 12/02/16 08:13 Basophils % (Manual) 0 % (0.0-1.8) 12/02/16 08:13 Metamyelocytes % 0 % 12/02/16 08:13 Myelocytes % 0 % 12/02/16 08:13 Promyelocytes % 0 % 12/02/16 08:13 Blast Cells % 0 % 12/02/16 08:13 Nucleated RBC % Not Reportable 12/02/16 08:13 Seg Neutrophils # Man 12.3 K/mm3 (1.8-7.7) H 12/02/16 08:13 Band Neutrophils # 7.8 K/mm3 12/02/16 08:13 Lymphocytes # (Manual) 1.1 K/mm3 (1.2-5.4) L 12/02/16 08:13 Abs React Lymphs (Man) 0.0 K/mm3 12/02/16 08:13 Monocytes # (Manual) 1.1 K/mm3 (0.0-0.8) H 12/02/16 08:13 Eosinophils # (Manual) 0.0 K/mm3 (0.0-0.4) 12/02/16 08:13 Basophils # (Manual) 0.0 K/mm3 (0.0-0.1) 12/02/16 08:13 Metamyelocytes # 0.0 K/mm3 12/02/16 08:13 Myelocytes # 0.0 K/mm3 12/02/16 08:13 Promyelocytes # 0.0 K/mm3 12/02/16 08:13 Blast Cells # 0.0 K/mm3 12/02/16 08:13 WBC Morphology Not Reportable 12/02/16 08:13 Hypersegmented Neuts Not Reportable 12/02/16 08:13 Hyposegmented Neuts Not Reportable 12/02/16 08:13 Hypogranular Neuts Not Reportable 12/02/16 08:13 Smudge Cells Not Reportable 12/02/16 08:13 Toxic Granulation Not Reportable 12/02/16 08:13 Toxic Vacuolation Not Reportable 12/02/16 08:13 Dohle Bodies Not Reportable 12/02/16 08:13 Pelger-Huet Anomaly Not Reportable 12/02/16 08:13 Darius Rods Not Reportable 12/02/16 08:13 Platelet Estimate Appears decreased 12/02/16 08:13 Clumped Platelets Not Reportable 12/02/16 08:13 Plt Clumps, EDTA Not Reportable 12/02/16 08:13 Large Platelets Not Reportable 12/02/16 08:13 Giant Platelets Not Reportable 12/02/16 08:13 Platelet Satelliting Not Reportable 12/02/16 08:13 Plt Morphology Comment Not Reportable 12/02/16 08:13 RBC Morphology Normal 12/02/16 08:13 Dimorphic RBCs Not Reportable 12/02/16 08:13 Polychromasia Not Reportable 12/02/16 08:13 Hypochromasia Not Reportable 12/02/16 08:13 Poikilocytosis Not Reportable 12/02/16 08:13 Anisocytosis Not Reportable 12/02/16 08:13 Microcytosis Not Reportable 12/02/16 08:13 Macrocytosis Not Reportable 12/02/16 08:13 Spherocytes Not Reportable 12/02/16 08:13 Pappenheimer Bodies Not Reportable 12/02/16 08:13 Sickle Cells Not Reportable 12/02/16 08:13 Target Cells Not Reportable 12/02/16 08:13 Tear Drop Cells Not Reportable 12/02/16 08:13 Ovalocytes Not Reportable 12/02/16 08:13 Helmet Cells Not Reportable 12/02/16 08:13 [place] Bodies Not Reportable 12/02/16 08:13 [place] Rings Not Reportable 12/02/16 08:13 [place] Cells Not Reportable 12/02/16 08:13 Bite Cells Not Reportable 12/02/16 08:13 Crenated Cell Not Reportable 12/02/16 08:13 Elliptocytes Not Reportable 12/02/16 08:13 Acanthocytes (Spur) Not Reportable 12/02/16 08:13 Rouleaux Not Reportable 12/02/16 08:13 Hemoglobin C Crystals Not Reportable 12/02/16 08:13 Schistocytes Not Reportable 12/02/16 08:13 Malaria parasites Not Reportable 12/02/16 08:13 Domenic Bodies Not Reportable 12/02/16 08:13 Hem Pathologist Commnt No 12/02/16 08:13 PT 14.1 Sec. (12.2-14.9) 12/04/16 15:46 INR 1.10 (0.87-1.13) 12/04/16 15:46 APTT 36.8 Sec. (24.2-36.6) H 12/04/16 15:46 VBG pH 7.395 (7.320-7.420) 12/01/16 12:50 Sodium 139 mmol/L (137-145) 12/14/16 08:14 Potassium 4.7 mmol/L (3.6-5.0) 12/14/16 08:14 Chloride 102.2 mmol/L (98-107) 12/14/16 08:14 Carbon Dioxide 29 mmol/L (22-30) 12/14/16 08:14 Anion Gap 13 mmol/L 12/14/16 08:14 BUN 15 mg/dL (9-20) 12/14/16 08:14 Creatinine 1.1 mg/dL (0.8-1.5) 12/14/16 08:14 Estimated GFR > 60 ml/min 12/14/16 08:14 BUN/Creatinine Ratio 13.63 % 12/14/16 08:14 Glucose 83 mg/dL (75-100) 12/14/16 08:14 POC Glucose 187 (70-105) H 12/01/16 18:59 Hemoglobin A1c 5.8 % (4-6) 12/02/16 08:13 Lactic Acid 1.50 mmol/L (0.7-2.0) 12/01/16 16:06 Calcium 10.0 mg/dL (8.4-10.2) 12/14/16 08:14 Total Bilirubin 0.40 mg/dL (0.1-1.2) 12/14/16 08:14 AST 29 units/L (5-40) 12/14/16 08:14 ALT 47 units/L (7-56) 12/14/16 08:14 Alkaline Phosphatase 61 units/L (35-129) 12/14/16 08:14 Troponin T < 0.010 ng/mL (0.00-0.029) 12/01/16 10:10 Total Protein 7.4 g/dL (6.3-8.2) 12/14/16 08:14 Albumin 3.0 g/dL (3.9-5) L 12/14/16 08:14 Albumin/Globulin Ratio 0.7 % 12/14/16 08:14 HIV 1&2 Antibody Rapid Non react (Non React) 12/04/16 15:46 HIV P24 Antigen Non react (Non React) 12/04/16 15:46 TB (QFT) Gold In Tube Positive (Negative) H 12/08/16 17:00 TB Test (QFT) Nil 0.07 IU/mL 12/08/16 17:00 TB Test Mitogen - Nil >10.00 IU/mL 12/08/16 17:00 TB Test Antigen - Nil >10.00 IU/mL 12/08/16 17:00
[2016-12-17] MEDS: COREG PO SCH ×3 (00:05→22:05)
[2016-12-17] MEDS: NACL 0.9% 1000 ML 1,000 ML IV SCH (07:01)
[2016-12-17] MEDS: ATROVENT IH SCH ×3 (08:48→20:51)
[2016-12-17] MEDS: XOPENEX IH SCH ×3 (08:48→20:51)
[2016-12-17] MEDS: PROTONIX PO SCH (11:08)
[2016-12-17] MEDS: NORVASC PO SCH (11:08)
[2016-12-17] MEDS: VITAMIN B-6 PO SCH (11:09)
[2016-12-17] MEDS: COZAAR PO SCH (11:09)
[2016-12-17] MEDS: ISONIAZID PO SCH (11:10)
[2016-12-17] MEDS: MYAMBUTOL PO SCH (11:10)
[2016-12-17] MEDS: PYRAZINAMIDE PO SCH (11:11)
--- NOTE | 2016-12-17 11:50 | Progress Note ---
Assessment and Plan Assessment and plan: Patient is 61-year-old man history of hypertension, asthma and GERD who presents with shortness of breath and productive cough. Chest x-ray shows right upper lobe pneumonia, white blood cell count was 20.5. Blood glucose was 227, creatinine 1.7. Patient is febrile so I ordered Tylenol. CT chest showed pneumonia, bronchiectasis, spiculated lesion left lower lobe -Aspiration pneumonia right upper lobe: Treated with antibiotics, follow blood culture, added renal dose zosyn -Acute hypoxic respiratory failure, poa: continue to wean o2 -Sepsis due to pneumonia present on admission: Treated with antibiotics, stopped IV fluids and gave a dose of lasix iv x 1 which really helped . -Acute renal failure, vasomotor nephropathy: Treated with IV fluids, was getting fluid overloaded, therefore stopped ivf -Hyperglycemia, Checked A1c==>5.8 unlikely DM, so hyperglycemia due to pre-dm vs stress reaction, start diabetic diet and ordered sliding scale insulin -DVT prophylaxis: SCDs and subcutaneous heparin Full code 12/03: wbc increasing and febrile, ordered CT chest chest without contrast due to renal dysfunction==>consulted pulmonology d/w Dr. Carr: I will order HIV, PPD, change levaquin to azithromycin, continue iv zosyn. No need for Tb isolation per Charge nurse Lan. I d/w patient and he is agreeable for testing. Bronchoscopy done PPD placed Monday left forearm. Read PPD as negative 12/06/16 Bronch done HIV negative Gold Interferon positive==> AFB pending to determine Latent vs Active Infection Tb 12/13/16 per ID: "(1) Latent tuberculosis infection Current Visit: Yes Status: Acute Plan to address problem: 1. Await sputum AFB result. 2. INH 300mg / vitamin B6 50mg daily IF NEGATIVE AFB studies. 3. RIPE/ vitamin B6 or other regimen IF POSITIVE AFB studies." 12/14/16: Trying to wean O2, awaiting AFB 12/15/16: AFB still pending, case management called [facility], they don't have an order of AFB? But they still have the sample and will run it now. I notified Dr. Rm, infectious disease physician==>Her concerns are transmission/ communicability and Public Safety. 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 ?Give him RIPE then follow-up with Dr. 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 12/16/16 d/w Margot from our infectious control department, she has faxed patient medical chart to [facility] and she has called them and left message. Sputum was not collected yesterday because patient had a dry cough, spoke with respiratory therapist, Cristo, again today and he will try to get a sputum sample and sent for AFB. Discussed with case management also. The safest thing here is to wait for AFB or clearance from ID. 12/17/16: Await AFB results, patient asking for FMLA, will defer to Infectious Disease or PCP. History Interval history: Patient seen and examined. Follow up on shortness breath. He is on 2 L oxygen. Which is new. Imaging, old records, testing, labs, nursing notes reviewed. Hospitalist Physical - Physical exam Narrative exam: GEN: WDWN, NAD, AWAKE, ALERT, ORIENTATED x 3 HEENT: NCAT, PERRL, EOMI, OP CLEAR NECK: SUPPLE, NO THYROMEGALY, NO JVD, NO LAD CVS: RRR, NORMAL S1S2 LUNGS/CHEST: Coarse breath sounds were right upper lung, NORMAL CHEST EXPANSION B, GOOD AIR ENTRY B ABD: SOFT, diffuse tenderness, distended, GBS, NO REBOUND OR GUARDING EXT/SKIN: NO SIGNIFICANT EDEMA OR RASH MSK: FROM X 4 EXTREMITIES NEURO: CN 2-12 GROSSLY INTACT, NO FOCAL DEFICITS PSY: CALM - Constitutional Vitals: Temp Pulse Resp BP Pulse Ox 98 F 72 18 148/80 18 L 12/17/16 08:00 12/17/16 11:09 12/17/16 08:00 12/17/16 11:09 12/17/16 08:00 General appearance: Present: no acute distress Results - Labs CBC & Chem 7: 12/14/16 08:14 12/14/16 08:14 Labs: Laboratory Last Values WBC 6.3 K/mm3 (4.5-11.0) 12/14/16 08:14 RBC 4.46 M/mm3 (3.65-5.03) 12/14/16 08:14 Hgb 12.9 gm/dl (11.8-15.2) 12/14/16 08:14 Hct 39.2 % (35.5-45.6) 12/14/16 08:14 MCV 88 fl (84-94) 12/14/16 08:14 MCH 29 pg (28-32) 12/14/16 08:14 MCHC 33 % (32-34) 12/14/16 08:14 RDW 15.1 % (13.2-15.2) 12/14/16 08:14 Plt Count 424 K/mm3 (140-440) 12/14/16 08:14 Add Manual Diff Complete 12/02/16 08:13 Total Counted 100 12/02/16 08:13 Seg Neutrophils % Economic History Teacher 12/01/16 10:10 Seg Neuts % (Manual) 55.0 % (40.0-70.0) 12/02/16 08:13 Band Neutrophils % 35.0 % 12/02/16 08:13 Lymphocytes % (Manual) 5.0 % (13.4-35.0) L 12/02/16 08:13 Reactive Lymphs % (Man) 0 % 12/02/16 08:13 Monocytes % (Manual) 5.0 % (0.0-7.3) 12/02/16 08:13 Eosinophils % (Manual) 0 % (0.0-4.3) 12/02/16 08:13 Basophils % (Manual) 0 % (0.0-1.8) 12/02/16 08:13 Metamyelocytes % 0 % 12/02/16 08:13 Myelocytes % 0 % 12/02/16 08:13 Promyelocytes % 0 % 12/02/16 08:13 Blast Cells % 0 % 12/02/16 08:13 Nucleated RBC % Not Reportable 12/02/16 08:13 Seg Neutrophils # Man 12.3 K/mm3 (1.8-7.7) H 12/02/16 08:13 Band Neutrophils # 7.8 K/mm3 12/02/16 08:13 Lymphocytes # (Manual) 1.1 K/mm3 (1.2-5.4) L 12/02/16 08:13 Abs React Lymphs (Man) 0.0 K/mm3 12/02/16 08:13 Monocytes # (Manual) 1.1 K/mm3 (0.0-0.8) H 12/02/16 08:13 Eosinophils # (Manual) 0.0 K/mm3 (0.0-0.4) 12/02/16 08:13 Basophils # (Manual) 0.0 K/mm3 (0.0-0.1) 12/02/16 08:13 Metamyelocytes # 0.0 K/mm3 12/02/16 08:13 Myelocytes # 0.0 K/mm3 12/02/16 08:13 Promyelocytes # 0.0 K/mm3 12/02/16 08:13 Blast Cells # 0.0 K/mm3 12/02/16 08:13 WBC Morphology Not Reportable 12/02/16 08:13 Hypersegmented Neuts Not Reportable 12/02/16 08:13 Hyposegmented Neuts Not Reportable 12/02/16 08:13 Hypogranular Neuts Not Reportable 12/02/16 08:13 Smudge Cells Not Reportable 12/02/16 08:13 Toxic Granulation Not Reportable 12/02/16 08:13 Toxic Vacuolation Not Reportable 12/02/16 08:13 Dohle Bodies Not Reportable 12/02/16 08:13 Pelger-Huet Anomaly Not Reportable 12/02/16 08:13 Darius Rods Not Reportable 12/02/16 08:13 Platelet Estimate Appears decreased 12/02/16 08:13 Clumped Platelets Not Reportable 12/02/16 08:13 Plt Clumps, EDTA Not Reportable 12/02/16 08:13 Large Platelets Not Reportable 12/02/16 08:13 Giant Platelets Not Reportable 12/02/16 08:13 Platelet Satelliting Not Reportable 12/02/16 08:13 Plt Morphology Comment Not Reportable 12/02/16 08:13 RBC Morphology Normal 12/02/16 08:13 Dimorphic RBCs Not Reportable 12/02/16 08:13 Polychromasia Not Reportable 12/02/16 08:13 Hypochromasia Not Reportable 12/02/16 08:13 Poikilocytosis Not Reportable 12/02/16 08:13 Anisocytosis Not Reportable 12/02/16 08:13 Microcytosis Not Reportable 12/02/16 08:13 Macrocytosis Not Reportable 12/02/16 08:13 Spherocytes Not Reportable 12/02/16 08:13 Pappenheimer Bodies Not Reportable 12/02/16 08:13 Sickle Cells Not Reportable 12/02/16 08:13 Target Cells Not Reportable 12/02/16 08:13 Tear Drop Cells Not Reportable 12/02/16 08:13 Ovalocytes Not Reportable 12/02/16 08:13 Helmet Cells Not Reportable 12/02/16 08:13 Avend[place] Bodies Not Reportable 12/02/16 08:13 [place] Rings Not Reportable 12/02/16 08:13 [place] Cells Not Reportable 12/02/16 08:13 Bite Cells Not Reportable 12/02/16 08:13 Crenated Cell Not Reportable 12/02/16 08:13 Elliptocytes Not Reportable 12/02/16 08:13 Acanthocytes (Spur) Not Reportable 12/02/16 08:13 Rouleaux Not Reportable 12/02/16 08:13 Hemoglobin C Crystals Not Reportable 12/02/16 08:13 Schistocytes Not Reportable 12/02/16 08:13 Malaria parasites Not Reportable 12/02/16 08:13 Domenic Bodies Not Reportable 12/02/16 08:13 Hem Pathologist Commnt No 12/02/16 08:13 PT 14.1 Sec. (12.2-14.9) 12/04/16 15:46 INR 1.10 (0.87-1.13) 12/04/16 15:46 APTT 36.8 Sec. (24.2-36.6) H 12/04/16 15:46 VBG pH 7.395 (7.320-7.420) 12/01/16 12:50 Sodium 139 mmol/L (137-145) 12/14/16 08:14 Potassium 4.7 mmol/L (3.6-5.0) 12/14/16 08:14 Chloride 102.2 mmol/L (98-107) 12/14/16 08:14 Carbon Dioxide 29 mmol/L (22-30) 12/14/16 08:14 Anion Gap 13 mmol/L 12/14/16 08:14 BUN 15 mg/dL (9-20) 12/14/16 08:14 Creatinine 1.1 mg/dL (0.8-1.5) 12/14/16 08:14 Estimated GFR > 60 ml/min 12/14/16 08:14 BUN/Creatinine Ratio 13.63 % 12/14/16 08:14 Glucose 83 mg/dL (75-100) 12/14/16 08:14 POC Glucose 187 (70-105) H 12/01/16 18:59 Hemoglobin A1c 5.8 % (4-6) 12/02/16 08:13 Lactic Acid 1.50 mmol/L (0.7-2.0) 12/01/16 16:06 Calcium 10.0 mg/dL (8.4-10.2) 12/14/16 08:14 Total Bilirubin 0.40 mg/dL (0.1-1.2) 12/14/16 08:14 AST 29 units/L (5-40) 12/14/16 08:14 ALT 47 units/L (7-56) 12/14/16 08:14 Alkaline Phosphatase 61 units/L (35-129) 12/14/16 08:14 Troponin T < 0.010 ng/mL (0.00-0.029) 12/01/16 10:10 Total Protein 7.4 g/dL (6.3-8.2) 12/14/16 08:14 Albumin 3.0 g/dL (3.9-5) L 12/14/16 08:14 Albumin/Globulin Ratio 0.7 % 12/14/16 08:14 HIV 1&2 Antibody Rapid Non react (Non React) 12/04/16 15:46 HIV P24 Antigen Non react (Non React) 12/04/16 15:46 TB (QFT) Gold In Tube Positive (Negative) H 12/08/16 17:00 TB Test (QFT) Nil 0.07 IU/mL 12/08/16 17:00 TB Test Mitogen - Nil >10.00 IU/mL 12/08/16 17:00 TB Test Antigen - Nil >10.00 IU/mL 12/08/16 17:00
[2016-12-17] MEDS: RIFADIN PO SCH (13:30)
[2016-12-18] MEDS: ATROVENT IH SCH ×3 (08:50→20:29)
[2016-12-18] MEDS: XOPENEX IH SCH ×3 (08:55→20:29)
[2016-12-18] MEDS: COZAAR PO SCH (11:10)
[2016-12-18] MEDS: VITAMIN B-6 PO SCH (11:11)
[2016-12-18] MEDS: ISONIAZID PO SCH (11:12)
[2016-12-18] MEDS: PYRAZINAMIDE PO SCH (11:12)
[2016-12-18] MEDS: MYAMBUTOL PO SCH (11:12)
[2016-12-18] MEDS: RIFADIN PO SCH (11:13)
[2016-12-18] MEDS: NORVASC PO SCH (11:13)
[2016-12-18] MEDS: PROTONIX PO SCH (11:13)
[2016-12-18] MEDS: COREG PO SCH ×2 (11:14→23:23)
--- NOTE | 2016-12-18 13:46 | Progress Note ---
Assessment and Plan Assessment and plan: Patient is 61-year-old man history of hypertension, asthma and GERD who presents with shortness of breath and productive cough. Chest x-ray shows right upper lobe pneumonia, white blood cell count was 20.5. Blood glucose was 227, creatinine 1.7. Patient is febrile so I ordered Tylenol. CT chest showed pneumonia, bronchiectasis, spiculated lesion left lower lobe -Aspiration pneumonia right upper lobe: Treated with antibiotics, follow blood culture, added renal dose zosyn -Acute hypoxic respiratory failure, poa: continue to wean o2 -Sepsis due to pneumonia present on admission: Treated with antibiotics, stopped IV fluids and gave a dose of lasix iv x 1 which really helped . -Acute renal failure, vasomotor nephropathy: Treated with IV fluids, was getting fluid overloaded, therefore stopped ivf -Hyperglycemia, Checked A1c==>5.8 unlikely DM, so hyperglycemia due to pre-dm vs stress reaction, start diabetic diet and ordered sliding scale insulin -DVT prophylaxis: SCDs and subcutaneous heparin Full code 12/03: wbc increasing and febrile, ordered CT chest chest without contrast due to renal dysfunction==>consulted pulmonology d/w Dr. Carr: I will order HIV, PPD, change levaquin to azithromycin, continue iv zosyn. No need for Tb isolation per Charge nurse Lan. I d/w patient and he is agreeable for testing. Bronchoscopy done PPD placed Monday left forearm. Read PPD as negative 12/06/16 Bronch done HIV negative Gold Interferon positive==> AFB pending to determine Latent vs Active Infection Tb 12/13/16 per ID: "(1) Latent tuberculosis infection Current Visit: Yes Status: Acute Plan to address problem: 1. Await sputum AFB result. 2. INH 300mg / vitamin B6 50mg daily IF NEGATIVE AFB studies. 3. RIPE/ vitamin B6 or other regimen IF POSITIVE AFB studies." 12/14/16: Trying to wean O2, awaiting AFB 12/15/16: AFB still pending, case management called [facility], they don't have an order of AFB? But they still have the sample and will run it now. I notified Dr. Rm, infectious disease physician==>Her concerns are transmission/ communicability and Public Safety. 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 ?Give him RIPE then follow-up with Dr. 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 12/16/16 d/w Margot from our infectious control department, she has faxed patient medical chart to [facility] and she has called them and left message. Sputum was not collected yesterday because patient had a dry cough, spoke with respiratory therapist, Cristo, again today and he will try to get a sputum sample and sent for AFB. Discussed with case management also. The safest thing here is to wait for AFB 12/17-: Await AFB results, patient asking for FMLA, will defer to Infectious Disease or PCP. History Interval history: Patient seen and examined. Follow up on shortness breath. He is on 2 L oxygen. Which is new. Imaging, old records, testing, labs, nursing notes reviewed. Hospitalist Physical - Physical exam Narrative exam: GEN: WDWN, NAD, AWAKE, ALERT, ORIENTATED x 3 HEENT: NCAT, PERRL, EOMI, OP CLEAR NECK: SUPPLE, NO THYROMEGALY, NO JVD, NO LAD CVS: RRR, NORMAL S1S2 LUNGS/CHEST: Coarse breath sounds were right upper lung, NORMAL CHEST EXPANSION B, GOOD AIR ENTRY B ABD: SOFT, diffuse tenderness, distended, GBS, NO REBOUND OR GUARDING EXT/SKIN: NO SIGNIFICANT EDEMA OR RASH MSK: FROM X 4 EXTREMITIES NEURO: CN 2-12 GROSSLY INTACT, NO FOCAL DEFICITS PSY: CALM - Constitutional Vitals: Temp Pulse Resp BP Pulse Ox 97.9 F 60 16 158/77 100 12/18/16 08:50 12/18/16 11:14 12/18/16 08:50 12/18/16 11:14 12/18/16 08:50 General appearance: Present: no acute distress Results - Labs CBC & Chem 7: 12/14/16 08:14 12/14/16 08:14 Labs: Laboratory Last Values WBC 6.3 K/mm3 (4.5-11.0) 12/14/16 08:14 RBC 4.46 M/mm3 (3.65-5.03) 12/14/16 08:14 Hgb 12.9 gm/dl (11.8-15.2) 12/14/16 08:14 Hct 39.2 % (35.5-45.6) 12/14/16 08:14 MCV 88 fl (84-94) 12/14/16 08:14 MCH 29 pg (28-32) 12/14/16 08:14 MCHC 33 % (32-34) 12/14/16 08:14 RDW 15.1 % (13.2-15.2) 12/14/16 08:14 Plt Count 424 K/mm3 (140-440) 12/14/16 08:14 Add Manual Diff Complete 12/02/16 08:13 Total Counted 100 12/02/16 08:13 Seg Neutrophils % Manuscript Reader 12/01/16 10:10 Seg Neuts % (Manual) 55.0 % (40.0-70.0) 12/02/16 08:13 Band Neutrophils % 35.0 % 12/02/16 08:13 Lymphocytes % (Manual) 5.0 % (13.4-35.0) L 12/02/16 08:13 Reactive Lymphs % (Man) 0 % 12/02/16 08:13 Monocytes % (Manual) 5.0 % (0.0-7.3) 12/02/16 08:13 Eosinophils % (Manual) 0 % (0.0-4.3) 12/02/16 08:13 Basophils % (Manual) 0 % (0.0-1.8) 12/02/16 08:13 Metamyelocytes % 0 % 12/02/16 08:13 Myelocytes % 0 % 12/02/16 08:13 Promyelocytes % 0 % 12/02/16 08:13 Blast Cells % 0 % 12/02/16 08:13 Nucleated RBC % Not Reportable 12/02/16 08:13 Seg Neutrophils # Man 12.3 K/mm3 (1.8-7.7) H 12/02/16 08:13 Band Neutrophils # 7.8 K/mm3 12/02/16 08:13 Lymphocytes # (Manual) 1.1 K/mm3 (1.2-5.4) L 12/02/16 08:13 Abs React Lymphs (Man) 0.0 K/mm3 12/02/16 08:13 Monocytes # (Manual) 1.1 K/mm3 (0.0-0.8) H 12/02/16 08:13 Eosinophils # (Manual) 0.0 K/mm3 (0.0-0.4) 12/02/16 08:13 Basophils # (Manual) 0.0 K/mm3 (0.0-0.1) 12/02/16 08:13 Metamyelocytes # 0.0 K/mm3 12/02/16 08:13 Myelocytes # 0.0 K/mm3 12/02/16 08:13 Promyelocytes # 0.0 K/mm3 12/02/16 08:13 Blast Cells # 0.0 K/mm3 12/02/16 08:13 WBC Morphology Not Reportable 12/02/16 08:13 Hypersegmented Neuts Not Reportable 12/02/16 08:13 Hyposegmented Neuts Not Reportable 12/02/16 08:13 Hypogranular Neuts Not Reportable 12/02/16 08:13 Smudge Cells Not Reportable 12/02/16 08:13 Toxic Granulation Not Reportable 12/02/16 08:13 Toxic Vacuolation Not Reportable 12/02/16 08:13 Dohle Bodies Not Reportable 12/02/16 08:13 Pelger-Huet Anomaly Not Reportable 12/02/16 08:13 Darius Rods Not Reportable 12/02/16 08:13 Platelet Estimate Appears decreased 12/02/16 08:13 Clumped Platelets Not Reportable 12/02/16 08:13 Plt Clumps, EDTA Not Reportable 12/02/16 08:13 Large Platelets Not Reportable 12/02/16 08:13 Giant Platelets Not Reportable 12/02/16 08:13 Platelet Satelliting Not Reportable 12/02/16 08:13 Plt Morphology Comment Not Reportable 12/02/16 08:13 RBC Morphology Normal 12/02/16 08:13 Dimorphic RBCs Not Reportable 12/02/16 08:13 Polychromasia Not Reportable 12/02/16 08:13 Hypochromasia Not Reportable 12/02/16 08:13 Poikilocytosis Not Reportable 12/02/16 08:13 Anisocytosis Not Reportable 12/02/16 08:13 Microcytosis Not Reportable 12/02/16 08:13 Macrocytosis Not Reportable 12/02/16 08:13 Spherocytes Not Reportable 12/02/16 08:13 Pappenheimer Bodies Not Reportable 12/02/16 08:13 Sickle Cells Not Reportable 12/02/16 08:13 Target Cells Not Reportable 12/02/16 08:13 Tear Drop Cells Not Reportable 12/02/16 08:13 Ovalocytes Not Reportable 12/02/16 08:13 Helmet Cells Not Reportable 12/02/16 08:13 [place] Bodies Not Reportable 12/02/16 08:13 [place] Rings Not Reportable 12/02/16 08:13 [place] Cells Not Reportable 12/02/16 08:13 Bite Cells Not Reportable 12/02/16 08:13 Crenated Cell Not Reportable 12/02/16 08:13 Elliptocytes Not Reportable 12/02/16 08:13 Acanthocytes (Spur) Not Reportable 12/02/16 08:13 Rouleaux Not Reportable 12/02/16 08:13 Hemoglobin C Crystals Not Reportable 12/02/16 08:13 Schistocytes Not Reportable 12/02/16 08:13 Malaria parasites Not Reportable 12/02/16 08:13 Domenic Bodies Not Reportable 12/02/16 08:13 Hem Pathologist Commnt No 12/02/16 08:13 PT 14.1 Sec. (12.2-14.9) 12/04/16 15:46 INR 1.10 (0.87-1.13) 12/04/16 15:46 APTT 36.8 Sec. (24.2-36.6) H 12/04/16 15:46 VBG pH 7.395 (7.320-7.420) 12/01/16 12:50 Sodium 139 mmol/L (137-145) 12/14/16 08:14 Potassium 4.7 mmol/L (3.6-5.0) 12/14/16 08:14 Chloride 102.2 mmol/L (98-107) 12/14/16 08:14 Carbon Dioxide 29 mmol/L (22-30) 12/14/16 08:14 Anion Gap 13 mmol/L 12/14/16 08:14 BUN 15 mg/dL (9-20) 12/14/16 08:14 Creatinine 1.1 mg/dL (0.8-1.5) 12/14/16 08:14 Estimated GFR > 60 ml/min 12/14/16 08:14 BUN/Creatinine Ratio 13.63 % 12/14/16 08:14 Glucose 83 mg/dL (75-100) 12/14/16 08:14 POC Glucose 187 (70-105) H 12/01/16 18:59 Hemoglobin A1c 5.8 % (4-6) 12/02/16 08:13 Lactic Acid 1.50 mmol/L (0.7-2.0) 12/01/16 16:06 Calcium 10.0 mg/dL (8.4-10.2) 12/14/16 08:14 Total Bilirubin 0.40 mg/dL (0.1-1.2) 12/14/16 08:14 AST 29 units/L (5-40) 12/14/16 08:14 ALT 47 units/L (7-56) 12/14/16 08:14 Alkaline Phosphatase 61 units/L (35-129) 12/14/16 08:14 Troponin T < 0.010 ng/mL (0.00-0.029) 12/01/16 10:10 Total Protein 7.4 g/dL (6.3-8.2) 12/14/16 08:14 Albumin 3.0 g/dL (3.9-5) L 12/14/16 08:14 Albumin/Globulin Ratio 0.7 % 12/14/16 08:14 HIV 1&2 Antibody Rapid Non react (Non React) 12/04/16 15:46 HIV P24 Antigen Non react (Non React) 12/04/16 15:46 TB (QFT) Gold In Tube Positive (Negative) H 12/08/16 17:00 TB Test (QFT) Nil 0.07 IU/mL 12/08/16 17:00 TB Test Mitogen - Nil >10.00 IU/mL 12/08/16 17:00 TB Test Antigen - Nil >10.00 IU/mL 12/08/16 17:00
--- NOTE | 2016-12-19 06:51 | Progress Note ---
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 Positive TST and quantiferon. Awaiting sputum AFB. 2. Presumptive RIPE/ B6 started. 3. Change RIPE to INH 300mg PO daily and vitamin B6 50mg daily IF AFB SPUTUM SMEARS ARE NEGATIVE. 4. Patient will still need to follow-up in my office in 4-6 weeks to check labs and follow-up AFB culture result. He has been given the contact information. [facility] (2) Pneumonia Current Visit: Yes Status: Acute Qualifiers: Pneumonia type: due to unspecified organism Aspiration pneumonia type: A Laterality: right Lung location: upper lobe of lung Qualified Code(s): J18.1 - Lobar pneumonia, unspecified organism Plan to address problem: Remains stable. Clinically resolved. Subjective Date of service: 12/19/16 Principal diagnosis: pneumonia, bronchiectasis, spiculated lesion left lower lobe Interval history: Awaiting AFB results. Remains afebrile. Stable. Objective - Constitutional Vitals: Vital Signs Temp Pulse Resp BP Pulse Ox 98.4 F 98 H 16 120/66 98 12/19/16 00:00 12/19/16 00:00 12/19/16 00:00 12/19/16 00:00 12/19/16 00:00 Temperature -Last 24 Hours Temperature 98.4 F Temperature 98 F Temperature 98.4 F Temperature 97.9 F General appearance: Present: no acute distress - EENT Eyes: no scleral icterus, no conjunctival injection - Neck Neck: supple - Respiratory Respiratory: bilateral: CTA, negative: rales (resolved), rhonchi - Cardiovascular Rhythm: regular Heart Sounds: Present: S1 & S2 Extremities: No edema - Gastrointestinal General gastrointestinal: Present: soft, non-distended - Integumentary Integumentary: clear, no jaundice, no rash - Neurologic Neurologic: no focal deficits, moves all extremities - Psychiatric Psychiatric: appropriate mood/affect - Labs CBC & Chem 7: 12/14/16 08:14 12/14/16 08:14 Labs: Microbiology 12/08/16 13:27 Bronchoalveolar Lavage - Right Upper Lobe Respiratory Culture - Final 12/08/16 13:27 Bronchoalveolar Lavage - Right Upper Lobe Fungal Culture - Preliminary 12/01/16 12:50 Peripheral/Venous Blood Culture - Final NO GROWTH AFTER 5 DAYS 12/01/16 13:16 Peripheral/Venous Blood Culture - Final NO GROWTH AFTER 5 DAYS
[2016-12-19] MEDS: RIFADIN PO SCH (10:07)
[2016-12-19] MEDS: COREG PO SCH (10:08)
[2016-12-19] MEDS: PROTONIX PO SCH (10:08)
[2016-12-19] MEDS: NORVASC PO SCH (10:09)
[2016-12-19] MEDS: COZAAR PO SCH (10:09)
[2016-12-19] MEDS: VITAMIN B-6 PO SCH (10:10)
[2016-12-19] MEDS: MYAMBUTOL PO SCH (10:10)
[2016-12-19] MEDS: ISONIAZID PO SCH (10:11)
[2016-12-19] MEDS: PYRAZINAMIDE PO SCH (10:11)
[2016-12-19] MEDS: ATROVENT IH SCH ×3 (11:45→20:01)
[2016-12-19] MEDS: XOPENEX IH SCH ×3 (11:45→20:01)
--- NOTE | 2016-12-19 14:02 | Progress Note ---
Assessment and Plan Assessment and plan: Patient is 61-year-old man history of hypertension, asthma and GERD who presents with shortness of breath and productive cough. Chest x-ray shows right upper lobe pneumonia, white blood cell count was 20.5. Blood glucose was 227, creatinine 1.7. Patient is febrile so I ordered Tylenol. CT chest showed pneumonia, bronchiectasis, spiculated lesion left lower lobe -Aspiration pneumonia right upper lobe: Treated with antibiotics, follow blood culture, added renal dose zosyn -Acute hypoxic respiratory failure, poa: continue to wean o2 -Sepsis due to pneumonia present on admission: Treated with antibiotics, stopped IV fluids and gave a dose of lasix iv x 1 which really helped . -Acute renal failure, vasomotor nephropathy: Treated with IV fluids, was getting fluid overloaded, therefore stopped ivf -Hyperglycemia, Checked A1c==>5.8 unlikely DM, so hyperglycemia due to pre-dm vs stress reaction, start diabetic diet and ordered sliding scale insulin -DVT prophylaxis: SCDs and subcutaneous heparin Full code 12/03: wbc increasing and febrile, ordered CT chest chest without contrast due to renal dysfunction==>consulted pulmonology d/w Dr. Carr: I will order HIV, PPD, change levaquin to azithromycin, continue iv zosyn. No need for Tb isolation per Charge nurse Lan. I d/w patient and he is agreeable for testing. Bronchoscopy done PPD placed Monday left forearm. Read PPD as negative 12/06/16 Bronch done HIV negative Gold Interferon positive==> AFB pending to determine Latent vs Active Infection Tb 12/13/16 per ID, Dr. Rm: "(1) Latent tuberculosis infection Current Visit: Yes Status: Acute Plan to address problem: 1. Await sputum AFB result. 2. INH 300mg / vitamin B6 50mg daily IF NEGATIVE AFB studies. 3. RIPE/ vitamin B6 or other regimen IF POSITIVE AFB studies." 12/14/16: Trying to wean O2, awaiting AFB 12/15/16: AFB still pending, case management called [facility], they don't have an order of AFB? But they still have the sample and will run it now. I notified Dr. Rm, infectious disease physician==>Her concerns are transmission/ communicability and Public Safety. 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 ?Give him RIPE then follow-up with Dr. 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 12/16/16 d/w Margot from our infectious control department, she has faxed patient medical chart to [facility] and she has called them and left message. Sputum was not collected yesterday because patient had a dry cough, spoke with respiratory therapist, Cristo, again today and he will try to get a sputum sample and sent for AFB. Discussed with case management also. The safest thing here is to wait for AFB 12/17-: Await AFB results, patient asking for FMLA, will defer to Infectious Disease or PCP. 12/19/16: Still waiting on AFB d/w case management. He is still on oxygen, he will need re-evaluation for O2 need History Interval history: Patient seen and examined. Follow up on shortness breath. He is on 2 L oxygen. Which is new. Imaging, old records, testing, labs, nursing notes reviewed. Hospitalist Physical - Physical exam Narrative exam: GEN: WDWN, NAD, AWAKE, ALERT, ORIENTATED x 3 HEENT: NCAT, PERRL, EOMI, OP CLEAR NECK: SUPPLE, NO THYROMEGALY, NO JVD, NO LAD CVS: RRR, NORMAL S1S2 LUNGS/CHEST: Coarse breath sounds were right upper lung, NORMAL CHEST EXPANSION B, GOOD AIR ENTRY B ABD: SOFT, diffuse tenderness, distended, GBS, NO REBOUND OR GUARDING EXT/SKIN: NO SIGNIFICANT EDEMA OR RASH MSK: FROM X 4 EXTREMITIES NEURO: CN 2-12 GROSSLY INTACT, NO FOCAL DEFICITS PSY: CALM - Constitutional Vitals: Temp Pulse Resp BP Pulse Ox 98.4 F 77 18 176/90 98 12/19/16 00:00 12/19/16 11:53 12/19/16 11:53 12/19/16 10:09 12/19/16 11:54 General appearance: Present: no acute distress Results - Labs CBC & Chem 7: 12/14/16 08:14 12/14/16 08:14 Labs: Laboratory Last Values WBC 6.3 K/mm3 (4.5-11.0) 12/14/16 08:14 RBC 4.46 M/mm3 (3.65-5.03) 12/14/16 08:14 Hgb 12.9 gm/dl (11.8-15.2) 12/14/16 08:14 Hct 39.2 % (35.5-45.6) 12/14/16 08:14 MCV 88 fl (84-94) 12/14/16 08:14 MCH 29 pg (28-32) 12/14/16 08:14 MCHC 33 % (32-34) 12/14/16 08:14 RDW 15.1 % (13.2-15.2) 12/14/16 08:14 Plt Count 424 K/mm3 (140-440) 12/14/16 08:14 Add Manual Diff Complete 12/02/16 08:13 Total Counted 100 12/02/16 08:13 Seg Neutrophils % Reed Polisher 12/01/16 10:10 Seg Neuts % (Manual) 55.0 % (40.0-70.0) 12/02/16 08:13 Band Neutrophils % 35.0 % 12/02/16 08:13 Lymphocytes % (Manual) 5.0 % (13.4-35.0) L 12/02/16 08:13 Reactive Lymphs % (Man) 0 % 12/02/16 08:13 Monocytes % (Manual) 5.0 % (0.0-7.3) 12/02/16 08:13 Eosinophils % (Manual) 0 % (0.0-4.3) 12/02/16 08:13 Basophils % (Manual) 0 % (0.0-1.8) 12/02/16 08:13 Metamyelocytes % 0 % 12/02/16 08:13 Myelocytes % 0 % 12/02/16 08:13 Promyelocytes % 0 % 12/02/16 08:13 Blast Cells % 0 % 12/02/16 08:13 Nucleated RBC % Not Reportable 12/02/16 08:13 Seg Neutrophils # Man 12.3 K/mm3 (1.8-7.7) H 12/02/16 08:13 Band Neutrophils # 7.8 K/mm3 12/02/16 08:13 Lymphocytes # (Manual) 1.1 K/mm3 (1.2-5.4) L 12/02/16 08:13 Abs React Lymphs (Man) 0.0 K/mm3 12/02/16 08:13 Monocytes # (Manual) 1.1 K/mm3 (0.0-0.8) H 12/02/16 08:13 Eosinophils # (Manual) 0.0 K/mm3 (0.0-0.4) 12/02/16 08:13 Basophils # (Manual) 0.0 K/mm3 (0.0-0.1) 12/02/16 08:13 Metamyelocytes # 0.0 K/mm3 12/02/16 08:13 Myelocytes # 0.0 K/mm3 12/02/16 08:13 Promyelocytes # 0.0 K/mm3 12/02/16 08:13 Blast Cells # 0.0 K/mm3 12/02/16 08:13 WBC Morphology Not Reportable 12/02/16 08:13 Hypersegmented Neuts Not Reportable 12/02/16 08:13 Hyposegmented Neuts Not Reportable 12/02/16 08:13 Hypogranular Neuts Not Reportable 12/02/16 08:13 Smudge Cells Not Reportable 12/02/16 08:13 Toxic Granulation Not Reportable 12/02/16 08:13 Toxic Vacuolation Not Reportable 12/02/16 08:13 Dohle Bodies Not Reportable 12/02/16 08:13 Pelger-Huet Anomaly Not Reportable 12/02/16 08:13 Darius Rods Not Reportable 12/02/16 08:13 Platelet Estimate Appears decreased 12/02/16 08:13 Clumped Platelets Not Reportable 12/02/16 08:13 Plt Clumps, EDTA Not Reportable 12/02/16 08:13 Large Platelets Not Reportable 12/02/16 08:13 Giant Platelets Not Reportable 12/02/16 08:13 Platelet Satelliting Not Reportable 12/02/16 08:13 Plt Morphology Comment Not Reportable 12/02/16 08:13 RBC Morphology Normal 12/02/16 08:13 Dimorphic RBCs Not Reportable 12/02/16 08:13 Polychromasia Not Reportable 12/02/16 08:13 Hypochromasia Not Reportable 12/02/16 08:13 Poikilocytosis Not Reportable 12/02/16 08:13 Anisocytosis Not Reportable 12/02/16 08:13 Microcytosis Not Reportable 12/02/16 08:13 Macrocytosis Not Reportable 12/02/16 08:13 Spherocytes Not Reportable 12/02/16 08:13 Pappenheimer Bodies Not Reportable 12/02/16 08:13 Sickle Cells Not Reportable 12/02/16 08:13 Target Cells Not Reportable 12/02/16 08:13 Tear Drop Cells Not Reportable 12/02/16 08:13 Ovalocytes Not Reportable 12/02/16 08:13 Helmet Cells Not Reportable 12/02/16 08:13 Avend[place] Bodies Not Reportable 12/02/16 08:13 [place] Rings Not Reportable 12/02/16 08:13 [place] Cells Not Reportable 12/02/16 08:13 Bite Cells Not Reportable 12/02/16 08:13 Crenated Cell Not Reportable 12/02/16 08:13 Elliptocytes Not Reportable 12/02/16 08:13 Acanthocytes (Spur) Not Reportable 12/02/16 08:13 Rouleaux Not Reportable 12/02/16 08:13 Hemoglobin C Crystals Not Reportable 12/02/16 08:13 Schistocytes Not Reportable 12/02/16 08:13 Malaria parasites Not Reportable 12/02/16 08:13 Domenic Bodies Not Reportable 12/02/16 08:13 Hem Pathologist Commnt No 12/02/16 08:13 PT 14.1 Sec. (12.2-14.9) 12/04/16 15:46 INR 1.10 (0.87-1.13) 12/04/16 15:46 APTT 36.8 Sec. (24.2-36.6) H 12/04/16 15:46 VBG pH 7.395 (7.320-7.420) 12/01/16 12:50 Sodium 139 mmol/L (137-145) 12/14/16 08:14 Potassium 4.7 mmol/L (3.6-5.0) 12/14/16 08:14 Chloride 102.2 mmol/L (98-107) 12/14/16 08:14 Carbon Dioxide 29 mmol/L (22-30) 12/14/16 08:14 Anion Gap 13 mmol/L 12/14/16 08:14 BUN 15 mg/dL (9-20) 12/14/16 08:14 Creatinine 1.1 mg/dL (0.8-1.5) 12/14/16 08:14 Estimated GFR > 60 ml/min 12/14/16 08:14 BUN/Creatinine Ratio 13.63 % 12/14/16 08:14 Glucose 83 mg/dL (75-100) 12/14/16 08:14 POC Glucose 187 (70-105) H 12/01/16 18:59 Hemoglobin A1c 5.8 % (4-6) 12/02/16 08:13 Lactic Acid 1.50 mmol/L (0.7-2.0) 12/01/16 16:06 Calcium 10.0 mg/dL (8.4-10.2) 12/14/16 08:14 Total Bilirubin 0.40 mg/dL (0.1-1.2) 12/14/16 08:14 AST 29 units/L (5-40) 12/14/16 08:14 ALT 47 units/L (7-56) 12/14/16 08:14 Alkaline Phosphatase 61 units/L (35-129) 12/14/16 08:14 Troponin T < 0.010 ng/mL (0.00-0.029) 12/01/16 10:10 Total Protein 7.4 g/dL (6.3-8.2) 12/14/16 08:14 Albumin 3.0 g/dL (3.9-5) L 12/14/16 08:14 Albumin/Globulin Ratio 0.7 % 12/14/16 08:14 HIV 1&2 Antibody Rapid Non react (Non React) 12/04/16 15:46 HIV P24 Antigen Non react (Non React) 12/04/16 15:46 TB (QFT) Gold In Tube Positive (Negative) H 12/08/16 17:00 TB Test (QFT) Nil 0.07 IU/mL 12/08/16 17:00 TB Test Mitogen - Nil >10.00 IU/mL 12/08/16 17:00 TB Test Antigen - Nil >10.00 IU/mL 12/08/16 17:00
[2016-12-20] MEDS: COREG PO SCH ×3 (00:24→22:43)
[2016-12-20 05:50] LABS: Hematocrit 36.5 % (35.5-45.6); Hemoglobin 11.9 gm/dl (11.8-15.2); Mean Corpuscular HGB Conc 33 % (32-34); Mean Corpuscular Hemoglobin 29 pg (28-32); Mean Corpuscular Volume 89 fl (84-94); Platelet Count 321 K/mm3 (140-440); Red Blood Count 4.11 M/mm3 (3.65-5.03); Red Cell Distribution Width 14.8 % (13.2-15.2); White Blood Count 5.9 K/mm3 (4.5-11.0)
[2016-12-20 06:09] LABS: Alanine Aminotransferase 34 units/L (7-56); Albumin 3.2 g/dL (3.9-5); Albumin/Globulin Ratio 1.1 %; Alkaline Phosphatase 67 units/L (35-129); Anion Gap 16 mmol/L; Blood Urea Nitrogen 17 mg/dL (9-20); Calcium 9.4 mg/dL (8.4-10.2); Carbon Dioxide 26 mmol/L (22-30); Chloride 102.2 mmol/L (98-107); Glucose 83 mg/dL (75-100); Potassium 4.2 mmol/L (3.6-5.0); Sodium 140 mmol/L (137-145); Total Protein 6.2 g/dL (6.3-8.2)
[2016-12-20] MEDS: ATROVENT IH SCH ×3 (08:07→21:06)
[2016-12-20] MEDS: XOPENEX IH SCH ×3 (08:08→21:06)
--- NOTE | 2016-12-20 08:09 | Progress Note ---
Assessment and Plan Assessment and plan: Patient is 61-year-old man history of hypertension, asthma and GERD who presents with shortness of breath and productive cough. Chest x-ray shows right upper lobe pneumonia, white blood cell count was 20.5. Blood glucose was 227, creatinine 1.7. Patient is febrile and was given Tylenol. CT chest showed pneumonia, bronchiectasis, spiculated lesion left lower lobe, patient initially had a CT chest without contrast due to renal dysfunction.pulmonary was consulted and patient had a bronchoscopy done, HIV test was ordered which was negative as his tremors and was also added. Patient was tested Gold Interferon positive==> AFB pending to determine Latent vs Active Infection Tb the patient continued on oxygen while attempting to wean this was continued. Dr. Nieves did speak with Margot at [facility] infectious department and she will let the health department know for DOT. ?Give him RIPE then follow-up with Dr. 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 -Aspiration pneumonia right upper lobe: Treated with antibiotics, follow blood culture,with zosyn, levaquin and azithromycin. 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 Awaiting sputum AFB. Presumptive RIPE started 12/16/16/ B6 started. Per ID will Change RIPE to INH 300mg PO daily and vitamin B6 50mg daily IF AFB SPUTUM SMEARS ARE NEGATIVE. Patient to follow-up in my office in 4-6 weeks to check labs and follow-up AFB culture result. He has been given the contact information. also PER ID [facility] has been notified of a potential case. -Acute hypoxic respiratory failure, poa: continue to wean o2 -Sepsis due to pneumonia present on admission: Treated with antibiotics, stopped IV fluids and gave a dose of lasix iv x 1 which really helped . -Hypertension- Continue coreg, norvasc, lorstan -Acute kidney injury, vasomotor nephropathy: Treated with IV fluids, was getting fluid overloaded, therefore stopped ivf -Hyperglycemia, Checked A1c==>5.8 unlikely DM, so hyperglycemia due to pre-dm vs stress reaction, start diabetic diet and ordered sliding scale insulin -DVT prophylaxis: SCDs and subcutaneous heparin Full code Hospitalist Physical - Constitutional Vitals: Temp Pulse Resp BP Pulse Ox 97.9 F 88 16 133/76 100 12/19/16 23:25 12/20/16 08:00 12/20/16 08:00 12/20/16 00:24 12/19/16 23:25 General appearance: Present: no acute distress Results - Labs CBC & Chem 7: 12/20/16 05:22 12/20/16 05:22 Labs: Laboratory Last Values WBC 5.9 K/mm3 (4.5-11.0) 12/20/16 05:22 RBC 4.11 M/mm3 (3.65-5.03) 12/20/16 05:22 Hgb 11.9 gm/dl (11.8-15.2) 12/20/16 05:22 Hct 36.5 % (35.5-45.6) 12/20/16 05:22 MCV 89 fl (84-94) 12/20/16 05:22 MCH 29 pg (28-32) 12/20/16 05:22 MCHC 33 % (32-34) 12/20/16 05:22 RDW 14.8 % (13.2-15.2) 12/20/16 05:22 Plt Count 321 K/mm3 (140-440) 12/20/16 05:22 Add Manual Diff Complete 12/02/16 08:13 Total Counted 100 12/02/16 08:13 Seg Neutrophils % Key Maker 12/01/16 10:10 Seg Neuts % (Manual) 55.0 % (40.0-70.0) 12/02/16 08:13 Band Neutrophils % 35.0 % 12/02/16 08:13 Lymphocytes % (Manual) 5.0 % (13.4-35.0) L 12/02/16 08:13 Reactive Lymphs % (Man) 0 % 12/02/16 08:13 Monocytes % (Manual) 5.0 % (0.0-7.3) 12/02/16 08:13 Eosinophils % (Manual) 0 % (0.0-4.3) 12/02/16 08:13 Basophils % (Manual) 0 % (0.0-1.8) 12/02/16 08:13 Metamyelocytes % 0 % 12/02/16 08:13 Myelocytes % 0 % 12/02/16 08:13 Promyelocytes % 0 % 12/02/16 08:13 Blast Cells % 0 % 12/02/16 08:13 Nucleated RBC % Not Reportable 12/02/16 08:13 Seg Neutrophils # Man 12.3 K/mm3 (1.8-7.7) H 12/02/16 08:13 Band Neutrophils # 7.8 K/mm3 12/02/16 08:13 Lymphocytes # (Manual) 1.1 K/mm3 (1.2-5.4) L 12/02/16 08:13 Abs React Lymphs (Man) 0.0 K/mm3 12/02/16 08:13 Monocytes # (Manual) 1.1 K/mm3 (0.0-0.8) H 12/02/16 08:13 Eosinophils # (Manual) 0.0 K/mm3 (0.0-0.4) 12/02/16 08:13 Basophils # (Manual) 0.0 K/mm3 (0.0-0.1) 12/02/16 08:13 Metamyelocytes # 0.0 K/mm3 12/02/16 08:13 Myelocytes # 0.0 K/mm3 12/02/16 08:13 Promyelocytes # 0.0 K/mm3 12/02/16 08:13 Blast Cells # 0.0 K/mm3 12/02/16 08:13 WBC Morphology Not Reportable 12/02/16 08:13 Hypersegmented Neuts Not Reportable 12/02/16 08:13 Hyposegmented Neuts Not Reportable 12/02/16 08:13 Hypogranular Neuts Not Reportable 12/02/16 08:13 Smudge Cells Not Reportable 12/02/16 08:13 Toxic Granulation Not Reportable 12/02/16 08:13 Toxic Vacuolation Not Reportable 12/02/16 08:13 Dohle Bodies Not Reportable 12/02/16 08:13 Pelger-Huet Anomaly Not Reportable 12/02/16 08:13 Darius Rods Not Reportable 12/02/16 08:13 Platelet Estimate Appears decreased 12/02/16 08:13 Clumped Platelets Not Reportable 12/02/16 08:13 Plt Clumps, EDTA Not Reportable 12/02/16 08:13 Large Platelets Not Reportable 12/02/16 08:13 Giant Platelets Not Reportable 12/02/16 08:13 Platelet Satelliting Not Reportable 12/02/16 08:13 Plt Morphology Comment Not Reportable 12/02/16 08:13 RBC Morphology Normal 12/02/16 08:13 Dimorphic RBCs Not Reportable 12/02/16 08:13 Polychromasia Not Reportable 12/02/16 08:13 Hypochromasia Not Reportable 12/02/16 08:13 Poikilocytosis Not Reportable 12/02/16 08:13 Anisocytosis Not Reportable 12/02/16 08:13 Microcytosis Not Reportable 12/02/16 08:13 Macrocytosis Not Reportable 12/02/16 08:13 Spherocytes Not Reportable 12/02/16 08:13 Pappenheimer Bodies Not Reportable 12/02/16 08:13 Sickle Cells Not Reportable 12/02/16 08:13 Target Cells Not Reportable 12/02/16 08:13 Tear Drop Cells Not Reportable 12/02/16 08:13 Ovalocytes Not Reportable 12/02/16 08:13 Helmet Cells Not Reportable 12/02/16 08:13 [place] Bodies Not Reportable 12/02/16 08:13 [place] Rings Not Reportable 12/02/16 08:13 [place] Cells Not Reportable 12/02/16 08:13 Bite Cells Not Reportable 12/02/16 08:13 Crenated Cell Not Reportable 12/02/16 08:13 Elliptocytes Not Reportable 12/02/16 08:13 Acanthocytes (Spur) Not Reportable 12/02/16 08:13 Rouleaux Not Reportable 12/02/16 08:13 Hemoglobin C Crystals Not Reportable 12/02/16 08:13 Schistocytes Not Reportable 12/02/16 08:13 Malaria parasites Not Reportable 12/02/16 08:13 Domenic Bodies Not Reportable 12/02/16 08:13 Hem Pathologist Commnt No 12/02/16 08:13 PT 14.1 Sec. (12.2-14.9) 12/04/16 15:46 INR 1.10 (0.87-1.13) 12/04/16 15:46 APTT 36.8 Sec. (24.2-36.6) H 12/04/16 15:46 VBG pH 7.395 (7.320-7.420) 12/01/16 12:50 Sodium 140 mmol/L (137-145) 12/20/16 05:22 Potassium 4.2 mmol/L (3.6-5.0) 12/20/16 05:22 Chloride 102.2 mmol/L (98-107) 12/20/16 05:22 Carbon Dioxide 26 mmol/L (22-30) 12/20/16 05:22 Anion Gap 16 mmol/L 12/20/16 05:22 BUN 17 mg/dL (9-20) 12/20/16 05:22 Creatinine 1.0 mg/dL (0.8-1.5) 12/20/16 05:22 Estimated GFR > 60 ml/min 12/20/16 05:22 BUN/Creatinine Ratio 17.00 % 12/20/16 05:22 Glucose 83 mg/dL (75-100) 12/20/16 05:22 POC Glucose 187 (70-105) H 12/01/16 18:59 Hemoglobin A1c 5.8 % (4-6) 12/02/16 08:13 Lactic Acid 1.50 mmol/L (0.7-2.0) 12/01/16 16:06 Calcium 9.4 mg/dL (8.4-10.2) 12/20/16 05:22 Total Bilirubin 0.20 mg/dL (0.1-1.2) 12/20/16 05:22 AST 27 units/L (5-40) 12/20/16 05:22 ALT 34 units/L (7-56) 12/20/16 05:22 Alkaline Phosphatase 67 units/L (35-129) 12/20/16 05:22 Troponin T < 0.010 ng/mL (0.00-0.029) 12/01/16 10:10 Total Protein 6.2 g/dL (6.3-8.2) L 12/20/16 05:22 Albumin 3.2 g/dL (3.9-5) L 12/20/16 05:22 Albumin/Globulin Ratio 1.1 % 12/20/16 05:22 HIV 1&2 Antibody Rapid Non react (Non React) 12/04/16 15:46 HIV P24 Antigen Non react (Non React) 12/04/16 15:46 TB (QFT) Gold In Tube Positive (Negative) H 12/08/16 17:00 TB Test (QFT) Nil 0.07 IU/mL 12/08/16 17:00 TB Test Mitogen - Nil >10.00 IU/mL 12/08/16 17:00 TB Test Antigen - Nil >10.00 IU/mL 12/08/16 17:00
[2016-12-20] MEDS: NORVASC PO SCH (10:27)
[2016-12-20] MEDS: PROTONIX PO SCH (10:28)
[2016-12-20] MEDS: COZAAR PO SCH (10:29)
[2016-12-20] MEDS: VITAMIN B-6 PO SCH (10:32)
[2016-12-20] MEDS: PYRAZINAMIDE PO SCH (10:32)
[2016-12-20] MEDS: MYAMBUTOL PO SCH (10:34)
[2016-12-20] MEDS: ISONIAZID PO SCH (10:34)
[2016-12-20] MEDS: RIFADIN PO SCH (12:33)
--- NOTE | 2016-12-20 15:32 | Discharge Summary ---
Providers - Providers Date of Admission: 12/01/16 13:24 Date of discharge: 12/21/16 Attending physician: LATOSHA PEREZ MD 12/09/16 12:21 Consult to Physician [CONS] Routine Consulting Provider: BRETT HILL Reason For Exam: PPD positive Place consult to:: ID/DR. 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 Chest x-ray shows right upper lobe pneumonia, white blood cell count was 20.5. Blood glucose was 227, creatinine 1.7. Patient is febrile and was given Tylenol. CT chest showed pneumonia, bronchiectasis, spiculated lesion left lower lobe, patient initially had a CT chest without contrast due to renal dysfunction.pulmonary was consulted and patient had a bronchoscopy done, HIV test was ordered which was negative as his tremors and was also added. Patient was tested Gold Interferon positive==> AFB pending to determine Latent vs Active Infection Tb the patient continued on oxygen while attempting to wean this was continued. Dr. Nieves did speak with Margot at [facility] infectious department and she will let the health department know for DOT. Patient was treated with empiric antibiotic with Zosyn and Levaquin and azithromycin initially he did have a bronchoscopy. Sputum AFB was sent for cultures and smear smear was negative 3. Dose of medication with [facility]. Patient's clinical symptoms improved he was weaned off of oxygen. His respiratory status also improved his renal function also improved. He was checked due to hyperglycemia with blood was not noted to have diabetes. The patient understands the importance of the DOT I will follow with the [facility]. He also will follow with infectious diseases in 4-6 weeks. Patient side effects were discussed in detail with the patient and he verbalized understanding. -Aspiration pneumonia right upper lobe -Tuberculin test reaction -Acute hypoxic respiratory failure -Sepsis due to pneumonia -Hypertension -Acute kidney injury, vasomotor nephropathy -Hyperglycemia Disposition: DC-01 TO HOME OR SELFCARE Time spent for discharge: 35 mins Core Measure Documentation - Palliative Care Palliative Care/ Comfort Measures: Not Applicable - Core Measures Any of the following diagnoses?: none - VTE Discharge Requirements Deep Vein Thrombosis/Pulmonary Embolism Present on Admission: No Exam - Physical Exam Narrative exam: VITAL SIGNS: Reviewed. GENERAL: The patient appeared well nourished and normally developed. Vital signs as documented. HEAD: No signs of head trauma. EYES: Pupils are equal. Extraocular motions intact. EARS: Hearing grossly intact. MOUTH: Oropharynx is normal. NECK: No adenopathy, no JVD. CHEST: Chest with clear breath sounds bilaterally. No wheezes, rales, or rhonchi. CARDIAC: Regular rate and rhythm. S1 and S2, without murmurs, gallops, or rubs. VASCULAR: No Edema. Peripheral pulses normal and equal in all extremities. ABDOMEN: Soft, without detectable tenderness. No sign of distention. No rebound or guarding, and no masses palpated. Bowel Sounds normal. MUSCULOSKELETAL: Good range of motion of all major joints. Extremities without clubbing, cyanosis or edema. NEUROLOGIC EXAM: Alert and oriented x 3. No focal sensory or strength deficits. Speech normal. Follows commands. PSYCHIATRIC: Mood normal. SKIN: No rash or lesions. - Constitutional Vitals: Temp Pulse Resp BP Pulse Ox 98.1 F 85 18 187/102 99 12/20/16 12:19 12/20/16 14:48 12/20/16 14:48 12/20/16 12:19 12/20/16 08:12 Plan Activity: advance as tolerated, fall precautions Diet: regular Additional Instructions: Must follow with the [facility] tomorrow 12/21/16. MUST OBTAIN LIVER FUNCTION TEST WITH PCP in 5 days due to medications. Follow up with: PRIMARY CAREMD [Primary Care Provider] - 3-5 Days BRETT HILL MD [Staff Physician] - 7 Days Prescriptions: amLODIPine [Norvasc] 10 mg PO QDAY #30 tablet Carvedilol [Coreg] 6.25 mg PO BID #60 tablet Ethambutol [Myambutol] 1,200 mg PO QDAY #30 tablet Isoniazid 300 mg PO QDAY #30 tablet Losartan [Cozaar] 50 mg PO QDAY #30 tablet Pyrazinamide 1,500 mg PO QDAY #30 tablet Pyridoxine [Vitamin B-6] 50 mg PO QDAY #30 tablet Rifampin [Rifadin] 600 mg PO QDAY #30 capsule
[2016-12-21] MEDS: ATROVENT IH SCH (08:03)
[2016-12-21] MEDS: XOPENEX IH SCH (08:03)
--- NOTE | 2016-12-21 09:15 | Progress Note ---
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 Possible pulmonary tuberculosis pending final AFB sputum cultures. Sputum AFB smears are negative x 3. 2. Home on RIPE/ B6. 3. I spent 25-30 minutes discussing the case with case management at [facility] as well as "Amauri" at the [facility] ([phone]), who is arranging DOT for this patient. 4. I advised him to follow-up with me in my office in 4-6 weeks to check labs and follow-up final results. 5. He may be discharged to home from an ID standpoint. (2) Pneumonia Current Visit: Yes Status: Acute Qualifiers: Pneumonia type: due to unspecified organism Aspiration pneumonia type: A Laterality: right Lung location: upper lobe of lung Qualified Code(s): J18.1 - Lobar pneumonia, unspecified organism Subjective Date of service: 12/21/16 Principal diagnosis: pneumonia, bronchiectasis, spiculated lesion left lower lobe Interval history: Remains afebrile. For discharge to home today with 3 negative AFB sputum smears. I have discussed his case with the [facility]. Objective - Constitutional Vitals: Vital Signs Temp Pulse Resp BP Pulse Ox 98.2 F 88 16 130/80 96 12/20/16 23:48 12/20/16 23:48 12/20/16 23:48 12/20/16 23:48 12/21/16 08:04 Temperature -Last 24 Hours Temperature 98.2 F Temperature 98.0 F Temperature 98.1 F General appearance: Present: no acute distress (dressed in regular clothes, ready to go home) - EENT Eyes: no scleral icterus, no conjunctival injection - Respiratory Respiratory effort: normal Respiratory: bilateral: CTA - Cardiovascular Rhythm: regular Heart Sounds: Present: S1 & S2 Extremities: No edema Extremity abnormal: edema - Gastrointestinal General gastrointestinal: Present: non-distended - Integumentary Integumentary: no rash - Neurologic Neurologic: no focal deficits, moves all extremities - Labs CBC & Chem 7: 12/20/16 05:22 12/20/16 05:22 Labs: Microbiology 12/16/16 10:20 Sputum - Expectorated Sputum AFB Smear Concentration - Final 12/16/16 10:20 Sputum - Expectorated Sputum AFB Smear Concentration - Final 12/16/16 10:20 Sputum - Expectorated Sputum AFB Smear Concentration - Final 12/08/16 13:27 Bronchoalveolar Lavage - Right Upper Lobe Respiratory Culture - Final 12/08/16 13:27 Bronchoalveolar Lavage - Right Upper Lobe Fungal Culture - Preliminary 12/01/16 12:50 Peripheral/Venous Blood Culture - Final NO GROWTH AFTER 5 DAYS 12/01/16 13:16 Peripheral/Venous Blood Culture - Final NO GROWTH AFTER 5 DAYS
[2016-12-21] MEDS: COZAAR PO SCH (09:42)
[2016-12-21] MEDS: RIFADIN PO SCH (09:42)
[2016-12-21] MEDS: ISONIAZID PO SCH (09:43)
[2016-12-21] MEDS: PYRAZINAMIDE PO SCH (09:43)
[2016-12-21] MEDS: VITAMIN B-6 PO SCH (09:43)
[2016-12-21] MEDS: COREG PO SCH (09:44)
[2016-12-21] MEDS: PROTONIX PO SCH (09:44)
[2016-12-21] MEDS: NORVASC PO SCH (09:44)
[2016-12-21] MEDS: MYAMBUTOL PO SCH (09:45)
[2016-12-21 09:46] VITALS: BP 138/83
--- NOTE | 2016-12-21 14:29 | Progress Note ---
Assessment and Plan Assessment and plan: Patient is 61-year-old man history of hypertension, asthma and GERD who presents with shortness of breath and productive cough. Chest x-ray shows right upper lobe pneumonia, white blood cell count was 20.5. Blood glucose was 227, creatinine 1.7. Patient is febrile and was given Tylenol. CT chest showed pneumonia, bronchiectasis, spiculated lesion left lower lobe, patient initially had a CT chest without contrast due to renal dysfunction.pulmonary was consulted and patient had a bronchoscopy done, HIV test was ordered which was negative as his tremors and was also added. Patient was tested Gold Interferon positive==> AFB pending to determine Latent vs Active Infection Tb the patient continued on oxygen while attempting to wean this was continued. Dr. Nieves did speak with Margot at [facility] infectious department and she will let the health department know for DOT. ?Give him RIPE then follow-up with Dr. Rm until AFB back? He works at [employer], will not be cleared.here has also been Communication with Kevin at the [facility] at [phone] about arranging DOT for this patient. -Aspiration pneumonia right upper lobe: Treated with antibiotics, follow blood culture,with zosyn, levaquin and azithromycin. 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 Awaiting sputum AFB. Presumptive RIPE started 12/16/16/ B6 started. Per ID will Change RIPE to INH 300mg PO daily and vitamin B6 50mg daily IF AFB SPUTUM SMEARS ARE NEGATIVE. Patient to follow-up in my office in 4-6 weeks to check labs and follow-up AFB culture result. He has been given the contact information. also PER ID [facility] has been notified of a potential case. -Acute hypoxic respiratory failure, poa: continue to wean o2 -Sepsis due to pneumonia present on admission: Treated with antibiotics, stopped IV fluids and gave a dose of lasix iv x 1 which really helped . -Hypertension- Continue coreg, norvasc, lorstan -Acute kidney injury, vasomotor nephropathy: Treated with IV fluids, was getting fluid overloaded, therefore stopped ivf -Hyperglycemia, Checked A1c==>5.8 unlikely DM, so hyperglycemia due to pre-dm vs stress reaction, start diabetic diet and ordered sliding scale insulin -DVT prophylaxis: SCDs and subcutaneous heparin Full code Plan is for discharge today and this has been discussed in detail with the patient. History Interval history: Patient seen and examined this morning in no acute distress denies any chest pain, nausea vomiting or diarrhea. He sits up with that she had the bedside. No other adverse event reported to me overnight. Hospitalist Physical - Physical exam Narrative exam: VITAL SIGNS: Reviewed. GENERAL: The patient appeared well nourished and normally developed. Vital signs as documented. HEAD: No signs of head trauma. EYES: Pupils are equal. Extraocular motions intact. EARS: Hearing grossly intact. MOUTH: Oropharynx is normal. NECK: No adenopathy, no JVD. CHEST: Chest with clear breath sounds bilaterally. No wheezes, rales, or rhonchi. CARDIAC: Regular rate and rhythm. S1 and S2, without murmurs, gallops, or rubs. VASCULAR: No Edema. Peripheral pulses normal and equal in all extremities. ABDOMEN: Soft, without detectable tenderness. No sign of distention. No rebound or guarding, and no masses palpated. Bowel Sounds normal. MUSCULOSKELETAL: Good range of motion of all major joints. Extremities without clubbing, cyanosis or edema. NEUROLOGIC EXAM: Alert and oriented x 3. No focal sensory or strength deficits. Speech normal. Follows commands. PSYCHIATRIC: Mood normal. SKIN: No rash or lesions. - Constitutional Vitals: Temp Pulse Resp BP Pulse Ox 98.6 F 101 H 16 138/83 98 12/21/16 09:40 12/21/16 09:44 12/21/16 09:40 12/21/16 09:44 12/21/16 09:30 General appearance: Present: no acute distress (dressed in regular clothes, ready to go home) Results - Labs CBC & Chem 7: 12/20/16 05:22 12/20/16 05:22 Labs: Laboratory Last Values WBC 5.9 K/mm3 (4.5-11.0) 12/20/16 05:22 RBC 4.11 M/mm3 (3.65-5.03) 12/20/16 05:22 Hgb 11.9 gm/dl (11.8-15.2) 12/20/16 05:22 Hct 36.5 % (35.5-45.6) 12/20/16 05:22 MCV 89 fl (84-94) 12/20/16 05:22 MCH 29 pg (28-32) 12/20/16 05:22 MCHC 33 % (32-34) 12/20/16 05:22 RDW 14.8 % (13.2-15.2) 12/20/16 05:22 Plt Count 321 K/mm3 (140-440) 12/20/16 05:22 Add Manual Diff Complete 12/02/16 08:13 Total Counted 100 12/02/16 08:13 Seg Neutrophils % Cardiopulmonary Specialist 12/01/16 10:10 Seg Neuts % (Manual) 55.0 % (40.0-70.0) 12/02/16 08:13 Band Neutrophils % 35.0 % 12/02/16 08:13 Lymphocytes % (Manual) 5.0 % (13.4-35.0) L 12/02/16 08:13 Reactive Lymphs % (Man) 0 % 12/02/16 08:13 Monocytes % (Manual) 5.0 % (0.0-7.3) 12/02/16 08:13 Eosinophils % (Manual) 0 % (0.0-4.3) 12/02/16 08:13 Basophils % (Manual) 0 % (0.0-1.8) 12/02/16 08:13 Metamyelocytes % 0 % 12/02/16 08:13 Myelocytes % 0 % 12/02/16 08:13 Promyelocytes % 0 % 12/02/16 08:13 Blast Cells % 0 % 12/02/16 08:13 Nucleated RBC % Not Reportable 12/02/16 08:13 Seg Neutrophils # Man 12.3 K/mm3 (1.8-7.7) H 12/02/16 08:13 Band Neutrophils # 7.8 K/mm3 12/02/16 08:13 Lymphocytes # (Manual) 1.1 K/mm3 (1.2-5.4) L 12/02/16 08:13 Abs React Lymphs (Man) 0.0 K/mm3 12/02/16 08:13 Monocytes # (Manual) 1.1 K/mm3 (0.0-0.8) H 12/02/16 08:13 Eosinophils # (Manual) 0.0 K/mm3 (0.0-0.4) 12/02/16 08:13 Basophils # (Manual) 0.0 K/mm3 (0.0-0.1) 12/02/16 08:13 Metamyelocytes # 0.0 K/mm3 12/02/16 08:13 Myelocytes # 0.0 K/mm3 12/02/16 08:13 Promyelocytes # 0.0 K/mm3 12/02/16 08:13 Blast Cells # 0.0 K/mm3 12/02/16 08:13 WBC Morphology Not Reportable 12/02/16 08:13 Hypersegmented Neuts Not Reportable 12/02/16 08:13 Hyposegmented Neuts Not Reportable 12/02/16 08:13 Hypogranular Neuts Not Reportable 12/02/16 08:13 Smudge Cells Not Reportable 12/02/16 08:13 Toxic Granulation Not Reportable 12/02/16 08:13 Toxic Vacuolation Not Reportable 12/02/16 08:13 Dohle Bodies Not Reportable 12/02/16 08:13 Pelger-Huet Anomaly Not Reportable 12/02/16 08:13 Darius Rods Not Reportable 12/02/16 08:13 Platelet Estimate Appears decreased 12/02/16 08:13 Clumped Platelets Not Reportable 12/02/16 08:13 Plt Clumps, EDTA Not Reportable 12/02/16 08:13 Large Platelets Not Reportable 12/02/16 08:13 Giant Platelets Not Reportable 12/02/16 08:13 Platelet Satelliting Not Reportable 12/02/16 08:13 Plt Morphology Comment Not Reportable 12/02/16 08:13 RBC Morphology Normal 12/02/16 08:13 Dimorphic RBCs Not Reportable 12/02/16 08:13 Polychromasia Not Reportable 12/02/16 08:13 Hypochromasia Not Reportable 12/02/16 08:13 Poikilocytosis Not Reportable 12/02/16 08:13 Anisocytosis Not Reportable 12/02/16 08:13 Microcytosis Not Reportable 12/02/16 08:13 Macrocytosis Not Reportable 12/02/16 08:13 Spherocytes Not Reportable 12/02/16 08:13 Pappenheimer Bodies Not Reportable 12/02/16 08:13 Sickle Cells Not Reportable 12/02/16 08:13 Target Cells Not Reportable 12/02/16 08:13 Tear Drop Cells Not Reportable 12/02/16 08:13 Ovalocytes Not Reportable 12/02/16 08:13 Helmet Cells Not Reportable 12/02/16 08:13 [place] Bodies Not Reportable 12/02/16 08:13 [place] Rings Not Reportable 12/02/16 08:13 [place] Cells Not Reportable 12/02/16 08:13 Bite Cells Not Reportable 12/02/16 08:13 Crenated Cell Not Reportable 12/02/16 08:13 Elliptocytes Not Reportable 12/02/16 08:13 Acanthocytes (Spur) Not Reportable 12/02/16 08:13 Rouleaux Not Reportable 12/02/16 08:13 Hemoglobin C Crystals Not Reportable 12/02/16 08:13 Schistocytes Not Reportable 12/02/16 08:13 Malaria parasites Not Reportable 12/02/16 08:13 Domenic Bodies Not Reportable 12/02/16 08:13 Hem Pathologist Commnt No 12/02/16 08:13 PT 14.1 Sec. (12.2-14.9) 12/04/16 15:46 INR 1.10 (0.87-1.13) 12/04/16 15:46 APTT 36.8 Sec. (24.2-36.6) H 12/04/16 15:46 VBG pH 7.395 (7.320-7.420) 12/01/16 12:50 Sodium 140 mmol/L (137-145) 12/20/16 05:22 Potassium 4.2 mmol/L (3.6-5.0) 12/20/16 05:22 Chloride 102.2 mmol/L (98-107) 12/20/16 05:22 Carbon Dioxide 26 mmol/L (22-30) 12/20/16 05:22 Anion Gap 16 mmol/L 12/20/16 05:22 BUN 17 mg/dL (9-20) 12/20/16 05:22 Creatinine 1.0 mg/dL (0.8-1.5) 12/20/16 05:22 Estimated GFR > 60 ml/min 12/20/16 05:22 BUN/Creatinine Ratio 17.00 % 12/20/16 05:22 Glucose 83 mg/dL (75-100) 12/20/16 05:22 POC Glucose 187 (70-105) H 12/01/16 18:59 Hemoglobin A1c 5.8 % (4-6) 12/02/16 08:13 Lactic Acid 1.50 mmol/L (0.7-2.0) 12/01/16 16:06 Calcium 9.4 mg/dL (8.4-10.2) 12/20/16 05:22 Total Bilirubin 0.20 mg/dL (0.1-1.2) 12/20/16 05:22 AST 27 units/L (5-40) 12/20/16 05:22 ALT 34 units/L (7-56) 12/20/16 05:22 Alkaline Phosphatase 67 units/L (35-129) 12/20/16 05:22 Troponin T < 0.010 ng/mL (0.00-0.029) 12/01/16 10:10 Total Protein 6.2 g/dL (6.3-8.2) L 12/20/16 05:22 Albumin 3.2 g/dL (3.9-5) L 12/20/16 05:22 Albumin/Globulin Ratio 1.1 % 12/20/16 05:22 HIV 1&2 Antibody Rapid Non react (Non React) 12/04/16 15:46 HIV P24 Antigen Non react (Non React) 12/04/16 15:46 TB (QFT) Gold In Tube Positive (Negative) H 12/08/16 17:00 TB Test (QFT) Nil 0.07 IU/mL 12/08/16 17:00 TB Test Mitogen - Nil >10.00 IU/mL 12/08/16 17:00 TB Test Antigen - Nil >10.00 IU/mL 12/08/16 17:00
== END 2016-12-21 11:02 | disposition home or self-care (01) | DRG 853 ==
LOC: ED 09:43 → 3A 13:24 → UNDODISIN 12-03 15:10 → 3A 12-07 00:12
PROVIDERS: ADMIT Internal Medicine; ATTEND Internal Medicine
PROC: 3E0234Z Introduction of Serum, Toxoid and Vaccine into Muscle, Percutaneous Approach (ICD-10-PCS; 2016-12-01)
PROC: 0B9C8ZX Drainage of Right Upper Lung Lobe, Via Natural or Artificial Opening Endoscopic, Diagnostic (ICD-10-PCS; principal; 2016-12-08)
DX: A41.9 Sepsis, unspecified organism (principal); J69.0 Pneumonitis due to inhalation of food and vomit; N17.0 Acute kidney failure with tubular necrosis; J96.01 Acute respiratory failure with hypoxia; R73.9 Hyperglycemia, unspecified; K21.9 Gastro-esophageal reflux disease without esophagitis; I10 Essential (primary) hypertension; J47.9 Bronchiectasis, uncomplicated; I16.0 Hypertensive urgency; R76.11 Nonspecific reaction to tuberculin skin test without active tuberculosis; J98.09 Other diseases of bronchus, not elsewhere classified; Z83.3 Family history of diabetes mellitus; Z82.49 Family history of ischemic heart disease and other diseases of the circulatory system
CPT/HCPCS: 36415; 71020; 71250; 80048; 80053; 82140; 82164; 82805; 82962; 83036; 84484; 85007; 85025; 85027; 85610; 85730; 87040; 87102; 87116; 87220; 87806; 88104; 88112; 90686; 93005; 93010; 94640; 94760; 96374; 96375; 99285; J0171; J0456; J1815; J1940; J1956; J2250; J2270; J2543; J2704; J3010; J3370; J7030; J7050